=== PATIENT | male | born 1955 | race Caucasian/White ===

== ENCOUNTER 2017-05-02 22:04 | Inpatient (IN) | payer BC ==
[2017-05-02] MEDS: SOD CHLORIDE 0.9% 500 ML IV (23:00)
[2017-05-02 23:02] LABS: ADD MAN DIFF? NO
[2017-05-02 23:06] LABS: BASOPHILS % 0.5 % (0.0-2.0); EOSINOPHILS # 0.2 10^3/ul (0.0-0.5); EOSINOPHILS % 2.3 % (0.0-7.0); HEMATOCRIT 38.8 % (42.0-52.0); HEMOGLOBIN 11.8 g/dl (14.0-18.0); LYMPHOCYTES # 1.4 10^3/ul (0.8-2.9); LYMPHOCYTES % 21.8 % (15.0-51.0); MEAN CORPUSCULAR HEMOGLOBIN 26.4 pg (29.0-33.0); MEAN CORPUSCULAR HGB CONC 30.4 g/dl (32.0-37.0); MEAN CORPUSCULAR VOLUME 86.8 fl (82.0-101.0); MEAN PLATELET VOLUME 9.3 fl (7.4-10.4); MONOCYTE # 0.6 10^3/ul (0.3-0.9); MONOCYTES % 9.5 % (0.0-11.0); NEUTROPHIL # 4.2 10^3/ul (1.6-7.5); NEUTROPHILS % 65.6 % (39.0-77.0); PLATELET COUNT 241 10^3/UL (140-415); RED BLOOD COUNT 4.47 10^6/ul (4.70-6.10); RED CELL DISTRIBUTION WIDTH 14.1 % (11.5-14.5)
[2017-05-02 23:06] LABS: WHITE BLOOD COUNT 6.4 10^3/ul (4.8-10.8)
[2017-05-02 23:34] LABS: INR 1.05; PROTIME 13.8 Sec (11.9-14.9); PT RATIO 1.1
[2017-05-02 23:35] LABS: PARTIAL THROMBOPLASTIN TIME 35.7 Sec (25.0-35.0)
[2017-05-02 23:42] LABS: ALANINE AMINOTRANSFERASE 34 IU/L (13-69); ALBUMIN 4.3 g/dl (3.3-4.9); ALKALINE PHOSPHATASE 76 IU/L (42-121); ANION GAP 17 (8-16); ASPARTATE AMINO TRANSFERASE 33 IU/L (15-46); BILIRUBIN,INDIRECT 0.2 mg/dl (0-1.1); BILIRUBIN,TOTAL 0.2 mg/dl (0.2-1.3); BLOOD UREA NITROGEN 27 mg/dl (7-20); CALCIUM 9.1 mg/dl (8.4-10.2); CARBON DIOXIDE 35 mmol/L (21-31); CHLORIDE 96 mmol/L (97-110); CREATININE 1.04 mg/dl (0.61-1.24); GLUCOSE 83 mg/dl (70-220); POTASSIUM 3.6 mmol/L (3.5-5.1); SODIUM 144 mmol/L (135-144); TOTAL PROTEIN 8.6 g/dl (6.1-8.1)
[2017-05-02 23:54] LABS: B-TYPE NATRIURETIC PEPTIDE 2390 PG/ML (0-125); TROPONIN-I 0.052 ng/ml (0.00-0.12)
[2017-05-02] MEDS: IPRATROPIUM (NEB) 0.5 MG/2.5 ML AMP INH (23:55)
[2017-05-02] MEDS: ALBUTEROL 0.5% (NEB) 2.5 MG/0.5 ML AMP INH (23:55)
[2017-05-02] MEDS: METHYLPREDNISOLONE 125 MG INJ IV (23:58)
[2017-05-03 00:17] LABS: LACTIC ACID 1.9 mmol/L (0.5-2.0)
[2017-05-03] MEDS ORDERED: ACETAMINOPHEN 325 MG TAB PO (01:30)
[2017-05-03] MEDS: OSELTAMIVIR 75 MG CAP PO ×3 (01:39→21:28)
[2017-05-03] MEDS: ACETAMINOPHEN 325 MG TAB PO (01:39)
[2017-05-03] MEDS: LEVOFLOXACIN 750MG/D5W (PMX) 150 ML IVPB (01:39)
[2017-05-03] MEDS: SOD CHLORIDE 0.9% 500 ML IV (01:40)
[2017-05-03] MEDS: ONDANSETRON 4 MG INJ IV ×2 (01:40→14:00)
[2017-05-03 02:55] LABS: LACTIC ACID 1.3 mmol/L (0.5-2.0)
[2017-05-03] MEDS ORDERED: ONDANSETRON 4 MG INJ IV (03:30)
[2017-05-03] MEDS ORDERED: NITROGLYCERIN (SL) 0.4 MG TAB SL (03:30)
[2017-05-03] MEDS ORDERED: NACL 0.9% 3 ML SYG IV (03:30)
[2017-05-03] MEDS ORDERED: ALBUTEROL/IPRATROPIUM (NEB) 3 ML AMP HHN (03:30)
[2017-05-03] MEDS ORDERED: DEXTROSE 50% 50 ML SYRINGE IV ×2 (04:00)
[2017-05-03] MEDS ORDERED: GLUCOSE GEL 15 GRAM TUBE BUCCAL (04:00)
[2017-05-03] MEDS ORDERED: GLUCAGON 1 MG INJ IM (04:00)
[2017-05-03] MEDS ORDERED: GLUCOSE GEL 15 GRAM TUBE PO ×2 (04:00)
[2017-05-03 05:36] LABS: ADD MAN DIFF? NO
[2017-05-03 05:37] LABS: BASOPHILS % 0.3 % (0.0-2.0); EOSINOPHILS # 0.1 10^3/ul (0.0-0.5); EOSINOPHILS % 1.3 % (0.0-7.0); HEMATOCRIT 35.7 % (42.0-52.0); HEMOGLOBIN 10.9 g/dl (14.0-18.0); LYMPHOCYTES # 1.2 10^3/ul (0.8-2.9); LYMPHOCYTES % 20.5 % (15.0-51.0); MEAN CORPUSCULAR HEMOGLOBIN 26.8 pg (29.0-33.0); MEAN CORPUSCULAR HGB CONC 30.5 g/dl (32.0-37.0); MEAN CORPUSCULAR VOLUME 87.9 fl (82.0-101.0); MEAN PLATELET VOLUME 9.8 fl (7.4-10.4); MONOCYTE # 0.6 10^3/ul (0.3-0.9); MONOCYTES % 10.6 % (0.0-11.0); NEUTROPHILS % 67.1 % (39.0-77.0); PLATELET COUNT 207 10^3/UL (140-415); RED BLOOD COUNT 4.06 10^6/ul (4.70-6.10)
[2017-05-03 05:56] LABS: LACTIC ACID 1.4 mmol/L (0.5-2.0)
[2017-05-03 06:08] LABS: ALANINE AMINOTRANSFERASE 33 IU/L (13-69); ALBUMIN 3.6 g/dl (3.3-4.9); ALKALINE PHOSPHATASE 54 IU/L (42-121); ANION GAP 13 (8-16); ASPARTATE AMINO TRANSFERASE 38 IU/L (15-46); BILIRUBIN,INDIRECT 0.3 mg/dl (0-1.1); BILIRUBIN,TOTAL 0.3 mg/dl (0.2-1.3); BLOOD UREA NITROGEN 26 mg/dl (7-20); CALCIUM 8.5 mg/dl (8.4-10.2); CARBON DIOXIDE 35 mmol/L (21-31); CHLORIDE 99 mmol/L (97-110); CREATININE 0.93 mg/dl (0.61-1.24); GLUCOSE 66 mg/dl (70-220); MAGNESIUM 1.6 mg/dl (1.7-2.5); POTASSIUM 3.9 mmol/L (3.5-5.1); SODIUM 143 mmol/L (135-144); TOTAL PROTEIN 7.2 g/dl (6.1-8.1)
[2017-05-03] MEDS: INSULIN ASPART [NOVOLOG] 3 ML PEN SC ×6 (07:35→21:36)
[2017-05-03] MEDS ORDERED: METHYLPREDNISOLONE 40 MG INJ IV (09:00)
[2017-05-03] MEDS: ALBUTEROL HFA 8 GM INHALER INH ×3 (11:01→19:59)
[2017-05-03] MEDS: THIAMINE 100 MG TAB PO (11:02)
[2017-05-03] MEDS: LOSARTAN 50 MG TAB PO (11:09)
[2017-05-03] MEDS: SALMETEROL/FLUTICASONE 250/50 INHA INH ×2 (11:12→21:28)
[2017-05-03] MEDS: FERROUS SULFATE (EC) 325 MG TAB PO ×2 (11:13→21:28)
[2017-05-03] MEDS: GABAPENTIN 300 MG CAP PO ×3 (11:13→21:28)
[2017-05-03] MEDS: DOCUSATE SODIUM 100 MG CAP PO ×2 (11:13→22:30)
[2017-05-03] MEDS: ASPIRIN 81 MG TAB PO (11:13)
[2017-05-03] MEDS: HEPARIN 5,000 UNIT/0.5 ML VIAL SC ×2 (11:27→21:32)
[2017-05-03] MEDS: predniSONE 20 MG TAB PO (13:07)
[2017-05-03] MEDS: NICOTINE (14 MG/24 HR) PATCH TRANSDERM (13:34)
[2017-05-03] MEDS: FUROSEMIDE 20 MG TAB PO ×2 (13:40→19:58)
[2017-05-03] MEDS: morphine 2 MG INJ IV ×2 (14:00→15:00)
[2017-05-03] MEDS ORDERED: INSULIN GLARGINE [LANtus] 3 ML PEN SC (21:00)
[2017-05-03] MEDS: ALBUTEROL/IPRATROPIUM (NEB) 3 ML AMP HHN (21:23)
[2017-05-03] MEDS: INSULIN GLARGINE [LANtus] 3 ML PEN SC (21:33)
[2017-05-03] MEDS: TAMSULOSIN (SR) 0.4 MG CAP PO (22:08)
[2017-05-03] MEDS: POLYETHYLENE GLYCOL 17 GM PACKET PO (23:00)
[2017-05-04] MEDS: ALBUTEROL/IPRATROPIUM (NEB) 3 ML AMP HHN ×6 (01:00→21:00)
[2017-05-04] MEDS ORDERED: LEVOFLOXACIN 500MG/D5W (PMX) 100 ML IVPB (02:00)
[2017-05-04] MEDS ORDERED: METHYLPREDNISOLONE 125 MG INJ (02:14)
[2017-05-04] MEDS: ACCU-CHEK XX (02:24)
[2017-05-04 05:04] LABS: ADD MAN DIFF? NO
[2017-05-04 05:12] LABS: WHITE BLOOD COUNT 4.6 10^3/ul (4.8-10.8)
[2017-05-04 05:12] LABS: BASOPHILS % 0.2 % (0.0-2.0); HEMATOCRIT 31.8 % (42.0-52.0); HEMOGLOBIN 9.8 g/dl (14.0-18.0); LYMPHOCYTES # 1.1 10^3/ul (0.8-2.9); LYMPHOCYTES % 24.6 % (15.0-51.0); MEAN CORPUSCULAR HEMOGLOBIN 26.8 pg (29.0-33.0); MEAN CORPUSCULAR HGB CONC 30.8 g/dl (32.0-37.0); MEAN CORPUSCULAR VOLUME 87.1 fl (82.0-101.0); MONOCYTE # 0.4 10^3/ul (0.3-0.9); MONOCYTES % 9.5 % (0.0-11.0); NEUTROPHILS % 65.5 % (39.0-77.0); PLATELET COUNT 194 10^3/UL (140-415); RED BLOOD COUNT 3.65 10^6/ul (4.70-6.10)
[2017-05-04 05:35] LABS: ANION GAP 13 (8-16); BLOOD UREA NITROGEN 41 mg/dl (7-20); CALCIUM 8.5 mg/dl (8.4-10.2); CARBON DIOXIDE 35 mmol/L (21-31); CHLORIDE 94 mmol/L (97-110); GLUCOSE 323 mg/dl (70-220); MAGNESIUM 1.9 mg/dl (1.7-2.5); PHOSPHORUS 4.5 mg/dl (2.5-4.9); SODIUM 138 mmol/L (135-144)
[2017-05-04] MEDS: FUROSEMIDE 20 MG TAB PO ×2 (06:00→18:09)
[2017-05-04] MEDS: ALBUTEROL HFA 8 GM INHALER INH ×5 (06:49→23:55)
[2017-05-04] MEDS: INSULIN ASPART [NOVOLOG] 3 ML PEN SC ×7 (08:13→20:20)
[2017-05-04] MEDS: GABAPENTIN 300 MG CAP PO ×3 (09:57→20:19)
[2017-05-04] MEDS: DOCUSATE SODIUM 100 MG CAP PO ×2 (09:57→20:19)
[2017-05-04] MEDS: HEPARIN 5,000 UNIT/0.5 ML VIAL SC ×2 (09:58→20:23)
[2017-05-04] MEDS: POLYETHYLENE GLYCOL 17 GM PACKET PO ×2 (09:59→23:55)
[2017-05-04] MEDS: SALMETEROL/FLUTICASONE 250/50 INHA INH ×2 (10:00→20:19)
[2017-05-04] MEDS: OSELTAMIVIR 75 MG CAP PO ×2 (11:08→20:19)
[2017-05-04] MEDS: THIAMINE 100 MG TAB PO (11:09)
[2017-05-04] MEDS: NICOTINE (14 MG/24 HR) PATCH TRANSDERM (11:09)
[2017-05-04] MEDS: LOSARTAN 50 MG TAB PO (11:11)
[2017-05-04] MEDS: FERROUS SULFATE (EC) 325 MG TAB PO ×2 (11:13→20:19)
[2017-05-04] MEDS: ASPIRIN 81 MG TAB PO (11:14)
[2017-05-04] MEDS: predniSONE 20 MG TAB PO (15:21)
[2017-05-04] MEDS: ACETAMINOPHEN 325 MG TAB PO (18:05)
[2017-05-04] MEDS: TAMSULOSIN (SR) 0.4 MG CAP PO (20:19)
[2017-05-04] MEDS: INSULIN GLARGINE [LANtus] 3 ML PEN SC (20:22)
[2017-05-04] MEDS: HYDROCODONE/APAP (5/325) TAB PO (23:54)
[2017-05-05] MEDS: ALBUTEROL/IPRATROPIUM (NEB) 3 ML AMP HHN ×6 (01:00→21:05)
[2017-05-05] MEDS: ACCU-CHEK XX (02:00)
[2017-05-05] MEDS: ALBUTEROL HFA 8 GM INHALER INH ×3 (06:00→17:27)
[2017-05-05] MEDS: FUROSEMIDE 20 MG TAB PO ×2 (06:02→17:27)
[2017-05-05 07:06] LABS: ANION GAP 14 (8-16); BLOOD UREA NITROGEN 44 mg/dl (7-20); CALCIUM 8.7 mg/dl (8.4-10.2); CARBON DIOXIDE 33 mmol/L (21-31); CHLORIDE 98 mmol/L (97-110); CREATININE 1.14 mg/dl (0.61-1.24); GLUCOSE 291 mg/dl (70-220); MAGNESIUM 2.1 mg/dl (1.7-2.5); PHOSPHORUS 3.8 mg/dl (2.5-4.9); POTASSIUM 4.8 mmol/L (3.5-5.1); SODIUM 140 mmol/L (135-144)
[2017-05-05] MEDS: INSULIN ASPART [NOVOLOG] 3 ML PEN SC ×7 (08:11→20:47)
[2017-05-05] MEDS: POLYETHYLENE GLYCOL 17 GM PACKET PO ×2 (08:16→20:42)
[2017-05-05] MEDS: NICOTINE (14 MG/24 HR) PATCH TRANSDERM (08:16)
[2017-05-05] MEDS: SALMETEROL/FLUTICASONE 250/50 INHA INH ×2 (08:16→20:42)
[2017-05-05] MEDS: GABAPENTIN 300 MG CAP PO ×3 (08:16→20:43)
[2017-05-05] MEDS: DOCUSATE SODIUM 100 MG CAP PO ×2 (08:17→20:43)
[2017-05-05] MEDS: ASPIRIN 81 MG TAB PO (08:17)
[2017-05-05] MEDS: FERROUS SULFATE (EC) 325 MG TAB PO ×2 (08:17→20:43)
[2017-05-05] MEDS: THIAMINE 100 MG TAB PO (08:17)
[2017-05-05] MEDS: predniSONE 20 MG TAB PO (08:17)
[2017-05-05] MEDS: LOSARTAN 50 MG TAB PO (08:18)
[2017-05-05] MEDS: OSELTAMIVIR 75 MG CAP PO ×2 (08:23→20:43)
[2017-05-05] MEDS: HEPARIN 5,000 UNIT/0.5 ML VIAL SC ×2 (08:24→20:45)
[2017-05-05] MEDS: HYDROCODONE/APAP (5/325) TAB PO (10:54)
[2017-05-05] MEDS: AMLODIPINE 10 MG TAB PO (18:59)
[2017-05-05] MEDS: TAMSULOSIN (SR) 0.4 MG CAP PO (20:43)
[2017-05-05] MEDS: INSULIN GLARGINE [LANtus] 3 ML PEN SC (20:46)
[2017-05-05] MEDS: NA PHOSPHATE/BIPHOS 133 ML ENEMA PR (23:33)
[2017-05-06] MEDS: ALBUTEROL/IPRATROPIUM (NEB) 3 ML AMP HHN ×7 (01:00→20:20)
[2017-05-06] MEDS: ACCU-CHEK XX (02:00)
[2017-05-06] MEDS: FUROSEMIDE 20 MG TAB PO ×2 (04:42→17:27)
[2017-05-06] MEDS: ALBUTEROL HFA 8 GM INHALER INH ×4 (06:00→17:26)
[2017-05-06 06:34] LABS: ADD MAN DIFF? NO
[2017-05-06 06:45] LABS: BASOPHILS % 0.1 % (0.0-2.0); EOSINOPHILS % 0.1 % (0.0-7.0); HEMATOCRIT 33.4 % (42.0-52.0); HEMOGLOBIN 10.2 g/dl (14.0-18.0); LYMPHOCYTES # 2.1 10^3/ul (0.8-2.9); LYMPHOCYTES % 25.5 % (15.0-51.0); MEAN CORPUSCULAR HEMOGLOBIN 26.5 pg (29.0-33.0); MEAN CORPUSCULAR HGB CONC 30.5 g/dl (32.0-37.0); MEAN CORPUSCULAR VOLUME 86.8 fl (82.0-101.0); MEAN PLATELET VOLUME 10.3 fl (7.4-10.4); MONOCYTE # 0.6 10^3/ul (0.3-0.9); NEUTROPHIL # 5.4 10^3/ul (1.6-7.5); NEUTROPHILS % 66.8 % (39.0-77.0); PLATELET COUNT 223 10^3/UL (140-415); RED BLOOD COUNT 3.85 10^6/ul (4.70-6.10); RED CELL DISTRIBUTION WIDTH 13.8 % (11.5-14.5)
[2017-05-06 07:04] LABS: ANION GAP 13 (8-16); BLOOD UREA NITROGEN 41 mg/dl (7-20); CARBON DIOXIDE 38 mmol/L (21-31); CHLORIDE 97 mmol/L (97-110); GLUCOSE 203 mg/dl (70-220); PHOSPHORUS 3.1 mg/dl (2.5-4.9); SODIUM 144 mmol/L (135-144)
[2017-05-06] MEDS: INSULIN ASPART [NOVOLOG] 3 ML PEN SC ×7 (08:00→21:14)
[2017-05-06] MEDS: POLYETHYLENE GLYCOL 17 GM PACKET PO ×2 (08:10→21:16)
[2017-05-06] MEDS: THIAMINE 100 MG TAB PO (08:11)
[2017-05-06] MEDS: NICOTINE (14 MG/24 HR) PATCH TRANSDERM (08:11)
[2017-05-06] MEDS: FERROUS SULFATE (EC) 325 MG TAB PO ×2 (08:11→21:16)
[2017-05-06] MEDS: OSELTAMIVIR 75 MG CAP PO ×2 (08:11→21:16)
[2017-05-06] MEDS: ASPIRIN 81 MG TAB PO (08:11)
[2017-05-06] MEDS: GABAPENTIN 300 MG CAP PO ×3 (08:11→21:17)
[2017-05-06] MEDS: predniSONE 20 MG TAB PO (08:11)
[2017-05-06] MEDS: DOCUSATE SODIUM 100 MG CAP PO ×2 (08:11→21:17)
[2017-05-06] MEDS: SALMETEROL/FLUTICASONE 250/50 INHA INH ×2 (08:11→21:16)
[2017-05-06] MEDS: LOSARTAN 50 MG TAB PO (08:12)
[2017-05-06] MEDS: HEPARIN 5,000 UNIT/0.5 ML VIAL SC ×2 (08:13→21:15)
[2017-05-06] MEDS: AMLODIPINE 10 MG TAB PO (08:21)
[2017-05-06] MEDS: HYDROCODONE/APAP (5/325) TAB PO (10:48)
[2017-05-06] MEDS: INSULIN GLARGINE [LANtus] 3 ML PEN SC (21:14)
[2017-05-06] MEDS: TAMSULOSIN (SR) 0.4 MG CAP PO (21:17)
[2017-05-07] MEDS: ALBUTEROL HFA 8 GM INHALER INH ×4 (00:21→15:21)
[2017-05-07] MEDS: ACCU-CHEK XX (02:00)
[2017-05-07] MEDS: FUROSEMIDE 20 MG TAB PO ×2 (07:53→17:35)
[2017-05-07] MEDS: INSULIN ASPART [NOVOLOG] 3 ML PEN SC ×8 (07:57→21:28)
[2017-05-07] MEDS: POLYETHYLENE GLYCOL 17 GM PACKET PO ×2 (08:07→21:09)
[2017-05-07] MEDS: SALMETEROL/FLUTICASONE 250/50 INHA INH ×2 (08:07→21:12)
[2017-05-07] MEDS: GABAPENTIN 300 MG CAP PO ×3 (08:07→21:09)
[2017-05-07] MEDS: FERROUS SULFATE (EC) 325 MG TAB PO ×2 (08:07→21:09)
[2017-05-07] MEDS: OSELTAMIVIR 75 MG CAP PO ×2 (08:08→21:11)
[2017-05-07] MEDS: DOCUSATE SODIUM 100 MG CAP PO ×2 (08:08→21:09)
[2017-05-07] MEDS: LOSARTAN 50 MG TAB PO (08:08)
[2017-05-07] MEDS: ASPIRIN 81 MG TAB PO (08:08)
[2017-05-07] MEDS: THIAMINE 100 MG TAB PO (08:08)
[2017-05-07] MEDS: predniSONE 20 MG TAB PO (08:08)
[2017-05-07] MEDS: AMLODIPINE 10 MG TAB PO (08:09)
[2017-05-07] MEDS: HEPARIN 5,000 UNIT/0.5 ML VIAL SC ×2 (08:12→21:29)
[2017-05-07] MEDS: NICOTINE (14 MG/24 HR) PATCH TRANSDERM (08:12)
[2017-05-07] MEDS: ALBUTEROL/IPRATROPIUM (NEB) 3 ML AMP HHN ×4 (08:52→20:44)
[2017-05-07] MEDS: AZITHROMYCIN 250 MG TAB PO (15:21)
[2017-05-07] MEDS: ACETAMINOPHEN 325 MG TAB PO (15:39)
[2017-05-07] MEDS: GUAIFENESIN/DM (SR) TAB PO (21:09)
[2017-05-07] MEDS: FAMOTIDINE 20 MG TAB PO (21:09)
[2017-05-07] MEDS: LACTOBACILLUS RHAMNOSUS CAP PO (21:11)
[2017-05-07] MEDS: TAMSULOSIN (SR) 0.4 MG CAP PO (21:12)
[2017-05-07] MEDS: INSULIN GLARGINE [LANtus] 3 ML PEN SC (21:28)
[2017-05-08] MEDS: ALBUTEROL HFA 8 GM INHALER INH ×3 (00:27→17:15)
[2017-05-08] MEDS: ACCU-CHEK XX (02:00)
[2017-05-08] MEDS: FUROSEMIDE 20 MG TAB PO ×2 (06:16→17:22)
[2017-05-08 06:26] LABS: WHITE BLOOD COUNT 9.7 10^3/ul (4.8-10.8)
[2017-05-08 06:26] LABS: HEMATOCRIT 30.9 % (42.0-52.0); HEMOGLOBIN 9.6 g/dl (14.0-18.0); MEAN CORPUSCULAR HEMOGLOBIN 26.8 pg (29.0-33.0); MEAN CORPUSCULAR HGB CONC 31.1 g/dl (32.0-37.0); MEAN CORPUSCULAR VOLUME 86.3 fl (82.0-101.0); MEAN PLATELET VOLUME 10.1 fl (7.4-10.4); PLATELET COUNT 275 10^3/UL (140-415); POSITIVE DIFF @See below; RED BLOOD COUNT 3.58 10^6/ul (4.70-6.10)
[2017-05-08 07:04] LABS: ADD MAN DIFF? YES
[2017-05-08 07:07] LABS: ANION GAP 13 (8-16); BLOOD UREA NITROGEN 43 mg/dl (7-20); CALCIUM 8.7 mg/dl (8.4-10.2); CARBON DIOXIDE 32 mmol/L (21-31); CHLORIDE 100 mmol/L (97-110); CREATININE 0.99 mg/dl (0.61-1.24); GLUCOSE 335 mg/dl (70-220); POTASSIUM 3.9 mmol/L (3.5-5.1); SODIUM 141 mmol/L (135-144)
[2017-05-08 07:26] LABS: MAGNESIUM 2.2 mg/dl (1.7-2.5)
[2017-05-08] MEDS: SALMETEROL/FLUTICASONE 250/50 INHA INH ×2 (08:19→20:46)
[2017-05-08] MEDS: POLYETHYLENE GLYCOL 17 GM PACKET PO ×2 (08:20→20:46)
[2017-05-08] MEDS: ASPIRIN 81 MG TAB PO (08:20)
[2017-05-08] MEDS: GABAPENTIN 300 MG CAP PO ×3 (08:20→20:46)
[2017-05-08] MEDS: FERROUS SULFATE (EC) 325 MG TAB PO ×2 (08:20→20:46)
[2017-05-08] MEDS: DOCUSATE SODIUM 100 MG CAP PO ×2 (08:20→20:46)
[2017-05-08] MEDS: THIAMINE 100 MG TAB PO (08:21)
[2017-05-08] MEDS: LOSARTAN 50 MG TAB PO (08:21)
[2017-05-08] MEDS: LACTOBACILLUS RHAMNOSUS CAP PO ×2 (08:21→20:47)
[2017-05-08] MEDS: predniSONE 20 MG TAB PO (08:21)
[2017-05-08] MEDS: GUAIFENESIN/DM (SR) TAB PO ×2 (08:21→20:46)
[2017-05-08] MEDS: AMLODIPINE 10 MG TAB PO (08:21)
[2017-05-08] MEDS: AZITHROMYCIN 250 MG TAB PO (08:21)
[2017-05-08] MEDS: NICOTINE (14 MG/24 HR) PATCH TRANSDERM (08:22)
[2017-05-08] MEDS: INSULIN ASPART [NOVOLOG] 3 ML PEN SC ×8 (08:24→20:43)
[2017-05-08] MEDS: HEPARIN 5,000 UNIT/0.5 ML VIAL SC ×2 (08:24→20:46)
[2017-05-08 09:43] LABS: BASOPHILS % (M) 1 % (0-2); GIANT THROMBO% (M) 1 % (0-0); LYMPHOCYTES #M 2.6 10^3/ul (0.8-2.9); LYMPHOCYTES % (M) 27 % (15-51); MONOCYTE #M 0.7 10^3/ul (0.3-0.9); MONOCYTES % (M) 8 % (0-11); MYELOCYTES % (M) 1 % (0-0); PLATELET ESTIMATE NORMAL; POLYCHROMASIA 1+ (0-0); SEGMENTED NEUTROPHILS (M) % 63 % (39-77); SMUDGE%M 4 % (0-0)
[2017-05-08] MEDS: ALBUTEROL/IPRATROPIUM (NEB) 3 ML AMP HHN (09:56)
[2017-05-08] MEDS: HYDROCODONE/APAP (5/325) TAB PO (12:24)
[2017-05-08] MEDS ORDERED: ALBUTEROL/IPRATROPIUM (NEB) 3 ML AMP HHN (13:30)
[2017-05-08] MEDS: INSULIN GLARGINE [LANtus] 3 ML PEN SC (20:44)
[2017-05-08] MEDS: TAMSULOSIN (SR) 0.4 MG CAP PO (20:46)
[2017-05-08] MEDS: FAMOTIDINE 20 MG TAB PO (20:50)
[2017-05-09] MEDS: ALBUTEROL HFA 8 GM INHALER INH ×3 (00:11→15:20)
[2017-05-09] MEDS: ACCU-CHEK XX ×2 (02:10)
[2017-05-09] MEDS: FUROSEMIDE 20 MG TAB PO ×2 (05:41→17:14)
[2017-05-09 06:27] LABS: ADD MAN DIFF? NO
[2017-05-09 06:33] LABS: WHITE BLOOD COUNT 11.5 10^3/ul (4.8-10.8)
[2017-05-09 06:33] LABS: BASOPHILS % 0.3 % (0.0-2.0); EOSINOPHILS # 0.1 10^3/ul (0.0-0.5); EOSINOPHILS % 0.7 % (0.0-7.0); HEMATOCRIT 32.7 % (42.0-52.0); HEMOGLOBIN 9.8 g/dl (14.0-18.0); LYMPHOCYTES # 3.5 10^3/ul (0.8-2.9); LYMPHOCYTES % 30.4 % (15.0-51.0); MEAN CORPUSCULAR HEMOGLOBIN 25.9 pg (29.0-33.0); MEAN CORPUSCULAR VOLUME 86.5 fl (82.0-101.0); MEAN PLATELET VOLUME 10.1 fl (7.4-10.4); MONOCYTE # 0.8 10^3/ul (0.3-0.9); MONOCYTES % 6.5 % (0.0-11.0); PLATELET COUNT 344 10^3/UL (140-415); RED BLOOD COUNT 3.78 10^6/ul (4.70-6.10); RED CELL DISTRIBUTION WIDTH 14.1 % (11.5-14.5)
[2017-05-09 06:37] LABS: ANION GAP 12 (8-16); BLOOD UREA NITROGEN 34 mg/dl (7-20); CALCIUM 8.9 mg/dl (8.4-10.2); CARBON DIOXIDE 36 mmol/L (21-31); CHLORIDE 103 mmol/L (97-110); CREATININE 0.91 mg/dl (0.61-1.24); GLUCOSE 93 mg/dl (70-220); POTASSIUM 4.2 mmol/L (3.5-5.1); SODIUM 147 mmol/L (135-144)
[2017-05-09] MEDS: INSULIN ASPART [NOVOLOG] 3 ML PEN SC ×7 (08:00→20:30)
[2017-05-09] MEDS: SALMETEROL/FLUTICASONE 250/50 INHA INH ×2 (08:14→20:22)
[2017-05-09] MEDS: NICOTINE (14 MG/24 HR) PATCH TRANSDERM (08:15)
[2017-05-09] MEDS: ACETAMINOPHEN 325 MG TAB PO (08:15)
[2017-05-09] MEDS: AMLODIPINE 10 MG TAB PO (08:16)
[2017-05-09] MEDS: DOCUSATE SODIUM 100 MG CAP PO ×2 (08:16→20:21)
[2017-05-09] MEDS: LOSARTAN 50 MG TAB PO (08:16)
[2017-05-09] MEDS: THIAMINE 100 MG TAB PO (08:16)
[2017-05-09] MEDS: FERROUS SULFATE (EC) 325 MG TAB PO ×2 (08:17→20:22)
[2017-05-09] MEDS: LACTOBACILLUS RHAMNOSUS CAP PO ×2 (08:17→20:22)
[2017-05-09] MEDS: ASPIRIN 81 MG TAB PO (08:17)
[2017-05-09] MEDS: AZITHROMYCIN 250 MG TAB PO (08:17)
[2017-05-09] MEDS: POLYETHYLENE GLYCOL 17 GM PACKET PO ×2 (08:17→20:21)
[2017-05-09] MEDS: GABAPENTIN 300 MG CAP PO ×3 (08:17→20:22)
[2017-05-09] MEDS: GUAIFENESIN/DM (SR) TAB PO ×2 (08:17→20:22)
[2017-05-09] MEDS: HEPARIN 5,000 UNIT/0.5 ML VIAL SC ×2 (08:19→20:26)
[2017-05-09] MEDS: FAMOTIDINE 20 MG TAB PO (20:22)
[2017-05-09] MEDS: TAMSULOSIN (SR) 0.4 MG CAP PO (20:22)
[2017-05-09] MEDS: INSULIN GLARGINE [LANtus] 3 ML PEN SC (20:30)
== END 2017-05-09 21:38 | disposition home or self-care (01) | DRG 871 ==
LOC: E/R 22:04 → MS3 05-03 01:22 → PP2 05-04 18:15
DX: A41.9 Sepsis, unspecified organism (principal); J10.08 Influenza due to other identified influenza virus with other specified pneumonia; I11.0 Hypertensive heart disease with heart failure; J15.9 Unspecified bacterial pneumonia; J44.0 Chronic obstructive pulmonary disease with (acute) lower respiratory infection; I50.30 Unspecified diastolic (congestive) heart failure; E88.81 Metabolic syndrome and other insulin resistance; E11.9 Type 2 diabetes mellitus without complications; D64.9 Anemia, unspecified; N40.0 Benign prostatic hyperplasia without lower urinary tract symptoms; J44.1 Chronic obstructive pulmonary disease with (acute) exacerbation; M25.519 Pain in unspecified shoulder; E78.00 Pure hypercholesterolemia, unspecified; R65.20 Severe sepsis without septic shock; Z79.4 Long term (current) use of insulin; Z79.82 Long term (current) use of aspirin; Z87.891 Personal history of nicotine dependence
CPT/HCPCS: 36415; 71045; 71046; 80048; 80053; 82962; 83605; 83735; 83880; 84100; 84484; 85025; 85610; 85730; 87040; 87400; 93005; 94640; 94644; 96374; 96375; 97116; 97162; 97530; 99285-25

== ENCOUNTER 2017-07-10 23:09 | Inpatient (IN) | payer BC ==
[2017-07-11] MEDS ORDERED: morphine 2 MG INJ IV (00:30)
[2017-07-11] MEDS ORDERED: ONDANSETRON 4 MG INJ IV ×2 (00:30→04:00)
[2017-07-11 01:37] LABS: ADD MAN DIFF? NO
[2017-07-11 01:39] LABS: BASOPHILS % 0.4 % (0.0-2.0); EOSINOPHILS # 0.2 10^3/ul (0.0-0.5); EOSINOPHILS % 2.4 % (0.0-7.0); HEMATOCRIT 30.9 % (42.0-52.0); HEMOGLOBIN 9.3 g/dl (14.0-18.0); LYMPHOCYTES # 1.9 10^3/ul (0.8-2.9); LYMPHOCYTES % 25.4 % (15.0-51.0); MEAN CORPUSCULAR HEMOGLOBIN 26.5 pg (29.0-33.0); MEAN CORPUSCULAR HGB CONC 30.1 g/dl (32.0-37.0); MEAN PLATELET VOLUME 9.8 fl (7.4-10.4); MONOCYTE # 0.6 10^3/ul (0.3-0.9); MONOCYTES % 7.5 % (0.0-11.0); NEUTROPHIL # 4.9 10^3/ul (1.6-7.5); NEUTROPHILS % 63.9 % (39.0-77.0); PLATELET COUNT 180 10^3/UL (140-415); RED BLOOD COUNT 3.51 10^6/ul (4.70-6.10); RED CELL DISTRIBUTION WIDTH 15.8 % (11.5-14.5)
[2017-07-11 01:39] LABS: WHITE BLOOD COUNT 7.6 10^3/ul (4.8-10.8)
[2017-07-11 02:00] LABS: MAGNESIUM 1.7 mg/dl (1.7-2.5)
[2017-07-11 02:00] LABS: PHOSPHORUS 3.8 mg/dl (2.5-4.9)
[2017-07-11 02:03] LABS: ALANINE AMINOTRANSFERASE 102 IU/L (13-69); ALBUMIN 3.3 g/dl (3.3-4.9); ALBUMIN/GLOBULIN RATIO 1.03; ALKALINE PHOSPHATASE 141 IU/L (42-121); ANION GAP 13 (8-16); ASPARTATE AMINO TRANSFERASE 75 IU/L (15-46); BILIRUBIN,INDIRECT 0.1 mg/dl (0-1.1); BILIRUBIN,TOTAL 0.1 mg/dl (0.2-1.3); BLOOD UREA NITROGEN 23 mg/dl (7-20); CALCIUM 8.7 mg/dl (8.4-10.2); CARBON DIOXIDE 32 mmol/L (21-31); CHLORIDE 108 mmol/L (97-110); CREATININE 0.91 mg/dl (0.61-1.24); GLUCOSE 131 mg/dl (70-220); POTASSIUM 4.1 mmol/L (3.5-5.1); SODIUM 149 mmol/L (135-144); TOTAL PROTEIN 6.5 g/dl (6.1-8.1)
[2017-07-11] MEDS: ZOLPIDEM 5 MG TAB PO (02:59)
[2017-07-11] MEDS ORDERED: NITROGLYCERIN (SL) 0.4 MG TAB SL (04:00)
[2017-07-11] MEDS ORDERED: NACL 0.9% 3 ML SYG IV (04:00)
[2017-07-11] MEDS ORDERED: DEXTROSE 50% 50 ML SYRINGE IV (04:30)
[2017-07-11] MEDS ORDERED: GLUCOSE GEL 15 GRAM TUBE PO ×2 (04:30)
[2017-07-11] MEDS ORDERED: GLUCAGON 1 MG INJ IM (04:30)
[2017-07-11] MEDS: FUROSEMIDE 20 MG INJ IV (06:53)
[2017-07-11] MEDS: NIFEdipine (XL) 90 MG TAB PO (07:06)
[2017-07-11] MEDS: LOSARTAN 50 MG TAB PO (07:06)
[2017-07-11] MEDS ORDERED: GABAPENTIN 100 MG CAP PO (09:00)
[2017-07-11] MEDS ORDERED: LOSARTAN 50 MG TAB PO (09:00)
[2017-07-11] MEDS ORDERED: NIFEdipine (XL) 90 MG TAB PO (09:00)
[2017-07-11 09:18] LABS: ADD MAN DIFF? NO
[2017-07-11 09:22] LABS: WHITE BLOOD COUNT 9.2 10^3/ul (4.8-10.8)
[2017-07-11 09:22] LABS: BASOPHILS % 0.4 % (0.0-2.0); EOSINOPHILS # 0.2 10^3/ul (0.0-0.5); EOSINOPHILS % 1.6 % (0.0-7.0); HEMATOCRIT 32.8 % (42.0-52.0); HEMOGLOBIN 9.8 g/dl (14.0-18.0); LYMPHOCYTES # 1.6 10^3/ul (0.8-2.9); LYMPHOCYTES % 17.2 % (15.0-51.0); MEAN CORPUSCULAR HEMOGLOBIN 26.3 pg (29.0-33.0); MEAN CORPUSCULAR HGB CONC 29.9 g/dl (32.0-37.0); MEAN CORPUSCULAR VOLUME 88.2 fl (82.0-101.0); MEAN PLATELET VOLUME 9.8 fl (7.4-10.4); MONOCYTE # 0.7 10^3/ul (0.3-0.9); MONOCYTES % 7.8 % (0.0-11.0); NEUTROPHIL # 6.7 10^3/ul (1.6-7.5); NEUTROPHILS % 72.5 % (39.0-77.0); PLATELET COUNT 203 10^3/UL (140-415); RED BLOOD COUNT 3.72 10^6/ul (4.70-6.10); RED CELL DISTRIBUTION WIDTH 15.7 % (11.5-14.5)
[2017-07-11] MEDS: GABAPENTIN 300 MG CAP PO ×3 (09:31→21:33)
[2017-07-11] MEDS: SALMETEROL/FLUTICASONE 250/50 INHA INH ×2 (09:31→21:35)
[2017-07-11] MEDS: INSULIN ASPART [NOVOLOG] 3 ML PEN SC ×5 (09:32→21:00)
[2017-07-11] MEDS: HEPARIN 5,000 UNIT/0.5 ML VIAL SC ×2 (09:33→21:34)
[2017-07-11] MEDS: FERROUS SULFATE (EC) 325 MG TAB PO ×2 (09:35→21:36)
[2017-07-11] MEDS: THIAMINE 100 MG TAB PO (09:35)
[2017-07-11] MEDS: ASPIRIN 81 MG TAB PO (09:35)
[2017-07-11] MEDS: NICOTINE (14 MG/24 HR) PATCH TRANSDERM (09:36)
[2017-07-11] MEDS: hydrALAzine 20 MG INJ IV (09:38)
[2017-07-11] MEDS: FUROSEMIDE 40 MG INJ IV ×2 (09:38→18:14)
[2017-07-11 09:39] LABS: ALANINE AMINOTRANSFERASE 211 IU/L (13-69); ALBUMIN 3.7 g/dl (3.3-4.9); ALBUMIN/GLOBULIN RATIO 1.05; ALKALINE PHOSPHATASE 222 IU/L (42-121); ANION GAP 14 (8-16); ASPARTATE AMINO TRANSFERASE 189 IU/L (15-46); BILIRUBIN,INDIRECT 0.4 mg/dl (0-1.1); BILIRUBIN,TOTAL 0.4 mg/dl (0.2-1.3); BLOOD UREA NITROGEN 24 mg/dl (7-20); CARBON DIOXIDE 33 mmol/L (21-31); CHLORIDE 105 mmol/L (97-110); CREATININE 0.88 mg/dl (0.61-1.24); GLUCOSE 172 mg/dl (70-220); MAGNESIUM 1.7 mg/dl (1.7-2.5); POTASSIUM 4.2 mmol/L (3.5-5.1); SODIUM 148 mmol/L (135-144); TOTAL PROTEIN 7.2 g/dl (6.1-8.1)
[2017-07-11] MEDS: DOCUSATE SODIUM 100 MG CAP PO ×2 (13:41→21:33)
[2017-07-11] MEDS ORDERED: TAMSULOSIN (SR) 0.4 MG CAP PO (19:44)
[2017-07-11] MEDS: TAMSULOSIN (SR) 0.4 MG CAP PO (21:33)
[2017-07-11] MEDS: INSULIN GLARGINE [LANtus] 3 ML PEN SC (21:35)
[2017-07-12] MEDS: ACCU-CHEK XX (01:01)
[2017-07-12 04:48] LABS: ADD MAN DIFF? NO; HAAIG REFLEX REFLEX FILED
[2017-07-12 04:54] LABS: WHITE BLOOD COUNT 8.3 10^3/ul (4.8-10.8)
[2017-07-12 04:54] LABS: BASOPHILS % 0.4 % (0.0-2.0); EOSINOPHILS # 0.2 10^3/ul (0.0-0.5); EOSINOPHILS % 2.3 % (0.0-7.0); HEMATOCRIT 29.8 % (42.0-52.0); LYMPHOCYTES # 1.6 10^3/ul (0.8-2.9); LYMPHOCYTES % 18.8 % (15.0-51.0); MEAN CORPUSCULAR HEMOGLOBIN 26.2 pg (29.0-33.0); MEAN CORPUSCULAR HGB CONC 30.2 g/dl (32.0-37.0); MEAN CORPUSCULAR VOLUME 86.9 fl (82.0-101.0); MEAN PLATELET VOLUME 10.5 fl (7.4-10.4); MONOCYTE # 0.7 10^3/ul (0.3-0.9); MONOCYTES % 8.7 % (0.0-11.0); NEUTROPHIL # 5.8 10^3/ul (1.6-7.5); NEUTROPHILS % 69.4 % (39.0-77.0); PLATELET COUNT 181 10^3/UL (140-415); RED BLOOD COUNT 3.43 10^6/ul (4.70-6.10); RED CELL DISTRIBUTION WIDTH 15.9 % (11.5-14.5)
[2017-07-12 05:15] LABS: ALANINE AMINOTRANSFERASE 140 IU/L (13-69); ALBUMIN 3.3 g/dl (3.3-4.9); ALBUMIN/GLOBULIN RATIO 1.06; ALKALINE PHOSPHATASE 172 IU/L (42-121); ANION GAP 15 (8-16); ASPARTATE AMINO TRANSFERASE 65 IU/L (15-46); BILIRUBIN,INDIRECT 0.4 mg/dl (0-1.1); BILIRUBIN,TOTAL 0.4 mg/dl (0.2-1.3); BLOOD UREA NITROGEN 31 mg/dl (7-20); CALCIUM 8.7 mg/dl (8.4-10.2); CARBON DIOXIDE 32 mmol/L (21-31); CHLORIDE 102 mmol/L (97-110); GLUCOSE 156 mg/dl (70-220); POTASSIUM 4.2 mmol/L (3.5-5.1); SODIUM 145 mmol/L (135-144); TOTAL PROTEIN 6.4 g/dl (6.1-8.1)
[2017-07-12 05:16] LABS: PHOSPHORUS 4.1 mg/dl (2.5-4.9)
[2017-07-12 05:16] LABS: MAGNESIUM 1.8 mg/dl (1.7-2.5)
[2017-07-12 05:24] LABS: TROPONIN-I 0.029 ng/ml (0.00-0.12)
[2017-07-12] MEDS: FUROSEMIDE 40 MG INJ IV ×2 (05:25→18:22)
[2017-07-12 05:43] LABS: HEPATITIS B SURFACE ANTIGEN NEGATIVE (NEGATIVE)
[2017-07-12 06:00] LABS: HEPATITIS B CORE ANTIBODY NEGATIVE (NEGATIVE); HEPATITIS C VIRAL ANTIBODY NEGATIVE (NEGATIVE)
[2017-07-12 06:45] LABS: INR 1.08; PROTIME 14.1 Sec (11.9-14.9); PT RATIO 1.1
[2017-07-12 06:46] LABS: PARTIAL THROMBOPLASTIN TIME 36.7 Sec (25.0-35.0)
[2017-07-12] MEDS: INSULIN ASPART [NOVOLOG] 3 ML PEN SC ×7 (08:15→21:00)
[2017-07-12] MEDS: GABAPENTIN 300 MG CAP PO ×3 (08:29→21:41)
[2017-07-12] MEDS: ASPIRIN 81 MG TAB PO (08:29)
[2017-07-12] MEDS: DOCUSATE SODIUM 100 MG CAP PO ×2 (08:29→21:41)
[2017-07-12] MEDS: SALMETEROL/FLUTICASONE 250/50 INHA INH ×2 (08:29→21:39)
[2017-07-12] MEDS: THIAMINE 100 MG TAB PO (08:29)
[2017-07-12] MEDS: FERROUS SULFATE (EC) 325 MG TAB PO ×2 (08:30→21:41)
[2017-07-12] MEDS: NICOTINE (14 MG/24 HR) PATCH TRANSDERM (08:30)
[2017-07-12] MEDS: HEPARIN 5,000 UNIT/0.5 ML VIAL SC ×2 (08:32→21:47)
[2017-07-12] MEDS: LOSARTAN 50 MG TAB PO (08:34)
[2017-07-12] MEDS: BISACODYL 10 MG SUPP PR (08:35)
[2017-07-12 15:23] LABS: IRON 64 ug/dl (35-150)
[2017-07-12 15:32] LABS: % IRON SATURATION 19 % SAT (22-52); TOTAL IRON BINDING CAPACITY 345 ug/dl (241-421)
[2017-07-12] MEDS: LIDOCAINE 1% (MDV) 10 ML INJ (18:22)
[2017-07-12] MEDS: TAMSULOSIN (SR) 0.4 MG CAP PO (21:41)
[2017-07-12] MEDS: INSULIN GLARGINE [LANtus] 3 ML PEN SC (21:48)
[2017-07-12] MEDS: morphine 2 MG INJ IV ×2 (22:09→23:17)
[2017-07-13] MEDS: ACCU-CHEK XX (01:46)
[2017-07-13] MEDS: FUROSEMIDE 40 MG INJ IV ×2 (05:17→17:37)
[2017-07-13 05:50] LABS: ADD MAN DIFF? NO
[2017-07-13 05:58] LABS: BASOPHILS % 0.4 % (0.0-2.0); EOSINOPHILS # 0.1 10^3/ul (0.0-0.5); EOSINOPHILS % 1.8 % (0.0-7.0); HEMATOCRIT 29.6 % (42.0-52.0); LYMPHOCYTES # 1.4 10^3/ul (0.8-2.9); LYMPHOCYTES % 18.8 % (15.0-51.0); MEAN CORPUSCULAR HEMOGLOBIN 26.6 pg (29.0-33.0); MEAN CORPUSCULAR HGB CONC 30.4 g/dl (32.0-37.0); MEAN CORPUSCULAR VOLUME 87.6 fl (82.0-101.0); MEAN PLATELET VOLUME 10.2 fl (7.4-10.4); MONOCYTE # 0.6 10^3/ul (0.3-0.9); MONOCYTES % 7.4 % (0.0-11.0); NEUTROPHIL # 5.3 10^3/ul (1.6-7.5); NEUTROPHILS % 71.2 % (39.0-77.0); PLATELET COUNT 190 10^3/UL (140-415); RED BLOOD COUNT 3.38 10^6/ul (4.70-6.10); RED CELL DISTRIBUTION WIDTH 15.8 % (11.5-14.5)
[2017-07-13 05:58] LABS: WHITE BLOOD COUNT 7.4 10^3/ul (4.8-10.8)
[2017-07-13 06:59] LABS: ALANINE AMINOTRANSFERASE 105 IU/L (13-69); ALBUMIN 3.4 g/dl (3.3-4.9); ALBUMIN/GLOBULIN RATIO 1.03; ALKALINE PHOSPHATASE 171 IU/L (42-121); ANION GAP 14 (8-16); ASPARTATE AMINO TRANSFERASE 41 IU/L (15-46); BILIRUBIN,INDIRECT 0.3 mg/dl (0-1.1); BILIRUBIN,TOTAL 0.3 mg/dl (0.2-1.3); BLOOD UREA NITROGEN 33 mg/dl (7-20); CALCIUM 8.6 mg/dl (8.4-10.2); CARBON DIOXIDE 32 mmol/L (21-31); CHLORIDE 103 mmol/L (97-110); CREATININE 0.94 mg/dl (0.61-1.24); GLUCOSE 103 mg/dl (70-220); POTASSIUM 4.1 mmol/L (3.5-5.1); SODIUM 145 mmol/L (135-144); TOTAL PROTEIN 6.7 g/dl (6.1-8.1)
[2017-07-13] MEDS: INSULIN ASPART [NOVOLOG] 3 ML PEN SC ×7 (07:52→21:00)
[2017-07-13] MEDS: ASPIRIN 81 MG TAB PO (08:00)
[2017-07-13] MEDS: LOSARTAN 50 MG TAB PO (08:00)
[2017-07-13] MEDS: THIAMINE 100 MG TAB PO (08:00)
[2017-07-13] MEDS: FERROUS SULFATE (EC) 325 MG TAB PO ×2 (08:00→22:24)
[2017-07-13] MEDS: GABAPENTIN 300 MG CAP PO ×3 (08:00→22:23)
[2017-07-13] MEDS: DOCUSATE SODIUM 100 MG CAP PO ×2 (08:00→22:24)
[2017-07-13] MEDS: NICOTINE (14 MG/24 HR) PATCH TRANSDERM (08:02)
[2017-07-13] MEDS: SALMETEROL/FLUTICASONE 250/50 INHA INH ×2 (08:03→22:23)
[2017-07-13] MEDS: HEPARIN 5,000 UNIT/0.5 ML VIAL SC ×2 (08:03→22:39)
[2017-07-13] MEDS: morphine LIQ (10 MG/5 ML) CUP PO (20:18)
[2017-07-13] MEDS: INSULIN GLARGINE [LANtus] 3 ML PEN SC (21:00)
[2017-07-13] MEDS: TAMSULOSIN (SR) 0.4 MG CAP PO (22:24)
[2017-07-13] MEDS: GLUCOSE GEL 15 GRAM TUBE BUCCAL (22:33)
[2017-07-13] MEDS: DEXTROSE 50% 50 ML SYRINGE IV (23:20)
[2017-07-14] MEDS: morphine LIQ (10 MG/5 ML) CUP PO ×2 (00:11→12:43)
[2017-07-14] MEDS: ACCU-CHEK XX (02:00)
[2017-07-14] MEDS: ACETAMINOPHEN 325 MG TAB PO (02:14)
[2017-07-14] MEDS: FUROSEMIDE 40 MG INJ IV ×2 (05:30→18:04)
[2017-07-14] MEDS: NIFEdipine (XL) 90 MG TAB PO ×2 (06:55→08:31)
[2017-07-14 07:07] LABS: ADD MAN DIFF? NO
[2017-07-14 07:09] LABS: BASOPHILS % 0.3 % (0.0-2.0); EOSINOPHILS # 0.1 10^3/ul (0.0-0.5); EOSINOPHILS % 1.5 % (0.0-7.0); HEMATOCRIT 32.2 % (42.0-52.0); HEMOGLOBIN 9.5 g/dl (14.0-18.0); LYMPHOCYTES # 1.2 10^3/ul (0.8-2.9); LYMPHOCYTES % 12.3 % (15.0-51.0); MEAN CORPUSCULAR HEMOGLOBIN 26.5 pg (29.0-33.0); MEAN CORPUSCULAR HGB CONC 29.5 g/dl (32.0-37.0); MEAN CORPUSCULAR VOLUME 89.9 fl (82.0-101.0); MONOCYTE # 0.7 10^3/ul (0.3-0.9); MONOCYTES % 7.6 % (0.0-11.0); NEUTROPHIL # 7.4 10^3/ul (1.6-7.5); NEUTROPHILS % 77.9 % (39.0-77.0); PLATELET COUNT 232 10^3/UL (140-415); RED BLOOD COUNT 3.58 10^6/ul (4.70-6.10); RED CELL DISTRIBUTION WIDTH 15.8 % (11.5-14.5)
[2017-07-14 07:09] LABS: WHITE BLOOD COUNT 9.5 10^3/ul (4.8-10.8)
[2017-07-14 07:41] LABS: ALANINE AMINOTRANSFERASE 81 IU/L (13-69); ALBUMIN 3.7 g/dl (3.3-4.9); ALBUMIN/GLOBULIN RATIO 1.02; ALKALINE PHOSPHATASE 161 IU/L (42-121); ANION GAP 14 (8-16); ASPARTATE AMINO TRANSFERASE 28 IU/L (15-46); BILIRUBIN,INDIRECT 0.3 mg/dl (0-1.1); BILIRUBIN,TOTAL 0.3 mg/dl (0.2-1.3); BLOOD UREA NITROGEN 36 mg/dl (7-20); CALCIUM 8.6 mg/dl (8.4-10.2); CARBON DIOXIDE 35 mmol/L (21-31); CHLORIDE 101 mmol/L (97-110); CREATININE 1.08 mg/dl (0.61-1.24); GLUCOSE 183 mg/dl (70-220); MAGNESIUM 1.9 mg/dl (1.7-2.5); POTASSIUM 4.8 mmol/L (3.5-5.1); SODIUM 145 mmol/L (135-144); TOTAL PROTEIN 7.3 g/dl (6.1-8.1)
[2017-07-14 07:42] LABS: B-TYPE NATRIURETIC PEPTIDE 2600 PG/ML (0-125)
[2017-07-14] MEDS: GABAPENTIN 300 MG CAP PO ×3 (08:16→20:06)
[2017-07-14] MEDS: FERROUS SULFATE (EC) 325 MG TAB PO ×2 (08:17→20:06)
[2017-07-14] MEDS: INSULIN ASPART [NOVOLOG] 3 ML PEN SC ×7 (08:18→21:00)
[2017-07-14] MEDS: THIAMINE 100 MG TAB PO (08:19)
[2017-07-14] MEDS: ASPIRIN 81 MG TAB PO (08:19)
[2017-07-14] MEDS: HEPARIN 5,000 UNIT/0.5 ML VIAL SC ×2 (08:19→20:08)
[2017-07-14] MEDS: DOCUSATE SODIUM 100 MG CAP PO ×2 (08:19→20:06)
[2017-07-14] MEDS: LOSARTAN 50 MG TAB PO (08:20)
[2017-07-14] MEDS: SALMETEROL/FLUTICASONE 250/50 INHA INH ×2 (08:21→20:06)
[2017-07-14] MEDS: NICOTINE (14 MG/24 HR) PATCH TRANSDERM (08:21)
[2017-07-14] MEDS: TAMSULOSIN (SR) 0.4 MG CAP PO (20:06)
[2017-07-14] MEDS: INSULIN GLARGINE [LANtus] 3 ML PEN SC (20:09)
[2017-07-15] MEDS: ACCU-CHEK XX (02:00)
[2017-07-15] MEDS: FUROSEMIDE 40 MG INJ IV ×3 (05:18→21:38)
[2017-07-15 06:06] LABS: ADD MAN DIFF? NO
[2017-07-15 06:10] LABS: BASOPHILS % 0.2 % (0.0-2.0); EOSINOPHILS # 0.1 10^3/ul (0.0-0.5); EOSINOPHILS % 1.5 % (0.0-7.0); HEMATOCRIT 28.9 % (42.0-52.0); HEMOGLOBIN 8.5 g/dl (14.0-18.0); LYMPHOCYTES # 1.4 10^3/ul (0.8-2.9); LYMPHOCYTES % 15.9 % (15.0-51.0); MEAN CORPUSCULAR HEMOGLOBIN 26.4 pg (29.0-33.0); MEAN CORPUSCULAR HGB CONC 29.4 g/dl (32.0-37.0); MEAN CORPUSCULAR VOLUME 89.8 fl (82.0-101.0); MEAN PLATELET VOLUME 10.3 fl (7.4-10.4); MONOCYTE # 0.7 10^3/ul (0.3-0.9); MONOCYTES % 7.8 % (0.0-11.0); NEUTROPHIL # 6.4 10^3/ul (1.6-7.5); PLATELET COUNT 226 10^3/UL (140-415); RED BLOOD COUNT 3.22 10^6/ul (4.70-6.10); RED CELL DISTRIBUTION WIDTH 15.7 % (11.5-14.5)
[2017-07-15 06:10] LABS: WHITE BLOOD COUNT 8.7 10^3/ul (4.8-10.8)
[2017-07-15 06:37] LABS: B-TYPE NATRIURETIC PEPTIDE 2300 PG/ML (0-125)
[2017-07-15 06:40] LABS: ALANINE AMINOTRANSFERASE 74 IU/L (13-69); ALBUMIN 3.6 g/dl (3.3-4.9); ALBUMIN/GLOBULIN RATIO 1.05; ALKALINE PHOSPHATASE 167 IU/L (42-121); ANION GAP 15 (8-16); ASPARTATE AMINO TRANSFERASE 35 IU/L (15-46); BILIRUBIN,INDIRECT 0.2 mg/dl (0-1.1); BILIRUBIN,TOTAL 0.2 mg/dl (0.2-1.3); BLOOD UREA NITROGEN 45 mg/dl (7-20); CALCIUM 8.6 mg/dl (8.4-10.2); CARBON DIOXIDE 34 mmol/L (21-31); CHLORIDE 98 mmol/L (97-110); CREATININE 1.02 mg/dl (0.61-1.24); GLUCOSE 242 mg/dl (70-220); POTASSIUM 4.6 mmol/L (3.5-5.1); SODIUM 142 mmol/L (135-144)
[2017-07-15] MEDS: SALMETEROL/FLUTICASONE 250/50 INHA INH ×2 (08:31→21:40)
[2017-07-15] MEDS: NICOTINE (14 MG/24 HR) PATCH TRANSDERM (08:32)
[2017-07-15] MEDS: HEPARIN 5,000 UNIT/0.5 ML VIAL SC ×2 (08:32→21:00)
[2017-07-15] MEDS: DOCUSATE SODIUM 100 MG CAP PO ×2 (08:33→21:40)
[2017-07-15] MEDS: THIAMINE 100 MG TAB PO (08:33)
[2017-07-15] MEDS: GABAPENTIN 300 MG CAP PO ×3 (08:33→21:40)
[2017-07-15] MEDS: FERROUS SULFATE (EC) 325 MG TAB PO ×2 (08:33→21:39)
[2017-07-15] MEDS: NIFEdipine (XL) 90 MG TAB PO (08:33)
[2017-07-15] MEDS: ACETAMINOPHEN 325 MG TAB PO ×3 (08:34→21:58)
[2017-07-15] MEDS: ASPIRIN 81 MG TAB PO (08:34)
[2017-07-15] MEDS: LOSARTAN 50 MG TAB PO (08:34)
[2017-07-15] MEDS: INSULIN ASPART [NOVOLOG] 3 ML PEN SC ×7 (08:36→21:00)
[2017-07-15] MEDS: LEVOFLOXACIN 750MG/D5W (PMX) 150 ML IVPB (12:05)
[2017-07-15] MEDS: FUROSEMIDE 20 MG INJ IV (16:15)
[2017-07-15] MEDS: TAMSULOSIN (SR) 0.4 MG CAP PO (21:40)
[2017-07-15] MEDS: INSULIN GLARGINE [LANtus] 3 ML PEN SC (21:51)
[2017-07-15 22:30] LABS: CREATINE KINASE 53 IU/L (23-200)
[2017-07-15 22:42] LABS: CK INDEX 2.5; CK-MB 1.33 ng/ml (0.0-2.4); TROPONIN-I 0.023 ng/ml (0.00-0.12)
[2017-07-16] MEDS: LORAZEPAM 2 MG INJ IV (00:29)
[2017-07-16] MEDS: ACCU-CHEK XX (02:00)
[2017-07-16 07:15] LABS: ADD MAN DIFF? NO
[2017-07-16 07:24] LABS: BASOPHILS % 0.3 % (0.0-2.0); EOSINOPHILS # 0.2 10^3/ul (0.0-0.5); EOSINOPHILS % 2.1 % (0.0-7.0); HEMATOCRIT 28.7 % (42.0-52.0); HEMOGLOBIN 8.5 g/dl (14.0-18.0); LYMPHOCYTES # 1.5 10^3/ul (0.8-2.9); LYMPHOCYTES % 20.7 % (15.0-51.0); MEAN CORPUSCULAR HEMOGLOBIN 26.3 pg (29.0-33.0); MEAN CORPUSCULAR HGB CONC 29.6 g/dl (32.0-37.0); MEAN CORPUSCULAR VOLUME 88.9 fl (82.0-101.0); MEAN PLATELET VOLUME 9.6 fl (7.4-10.4); MONOCYTE # 0.7 10^3/ul (0.3-0.9); MONOCYTES % 10.1 % (0.0-11.0); NEUTROPHIL # 4.7 10^3/ul (1.6-7.5); NEUTROPHILS % 66.5 % (39.0-77.0); PLATELET COUNT 225 10^3/UL (140-415); RED BLOOD COUNT 3.23 10^6/ul (4.70-6.10); RED CELL DISTRIBUTION WIDTH 15.7 % (11.5-14.5)
[2017-07-16 07:42] LABS: ALANINE AMINOTRANSFERASE 69 IU/L (13-69); ALBUMIN 3.1 g/dl (3.3-4.9); ALBUMIN/GLOBULIN RATIO 1.03; ALKALINE PHOSPHATASE 147 IU/L (42-121); ANION GAP 15 (8-16); ASPARTATE AMINO TRANSFERASE 22 IU/L (15-46); BILIRUBIN,INDIRECT 0.2 mg/dl (0-1.1); BILIRUBIN,TOTAL 0.2 mg/dl (0.2-1.3); BLOOD UREA NITROGEN 50 mg/dl (7-20); CALCIUM 8.9 mg/dl (8.4-10.2); CARBON DIOXIDE 34 mmol/L (21-31); CHLORIDE 99 mmol/L (97-110); CREATININE 1.08 mg/dl (0.61-1.24); GLUCOSE 125 mg/dl (70-220); MAGNESIUM 2.1 mg/dl (1.7-2.5); POTASSIUM 4.7 mmol/L (3.5-5.1); SODIUM 143 mmol/L (135-144); TOTAL PROTEIN 6.1 g/dl (6.1-8.1)
[2017-07-16 07:47] LABS: CREATINE KINASE 47 IU/L (23-200)
[2017-07-16 07:55] LABS: CK INDEX 2.7; TROPONIN-I 0.033 ng/ml (0.00-0.12)
[2017-07-16] MEDS: INSULIN ASPART [NOVOLOG] 3 ML PEN SC ×7 (08:00→21:00)
[2017-07-16 08:02] LABS: CK-MB 1.27 ng/ml (0.0-2.4)
[2017-07-16] MEDS: NICOTINE (14 MG/24 HR) PATCH TRANSDERM (08:33)
[2017-07-16] MEDS: FERROUS SULFATE (EC) 325 MG TAB PO ×2 (08:34→22:06)
[2017-07-16] MEDS: GABAPENTIN 300 MG CAP PO ×3 (08:34→22:06)
[2017-07-16] MEDS: ASPIRIN 81 MG TAB PO (08:34)
[2017-07-16] MEDS: DOCUSATE SODIUM 100 MG CAP PO ×2 (08:34→22:06)
[2017-07-16] MEDS: THIAMINE 100 MG TAB PO (08:34)
[2017-07-16] MEDS: NIFEdipine (XL) 90 MG TAB PO (08:34)
[2017-07-16] MEDS: FUROSEMIDE 40 MG INJ IV ×2 (08:34→12:47)
[2017-07-16] MEDS: LOSARTAN 50 MG TAB PO (08:35)
[2017-07-16] MEDS: HEPARIN 5,000 UNIT/0.5 ML VIAL SC ×2 (09:00→23:37)
[2017-07-16] MEDS: PROPOFOL 0 ML (09:55)
[2017-07-16] MEDS: MIDAZOLAM 1 MG/ML 2 ML INJ (09:56)
[2017-07-16] MEDS: FENTAnyl 50 MCG/ML VIAL (09:56)
[2017-07-16] MEDS: SALMETEROL/FLUTICASONE 250/50 INHA INH ×2 (12:41→22:06)
[2017-07-16] MEDS: LEVOFLOXACIN 750MG/D5W (PMX) 150 ML IVPB (12:47)
[2017-07-16] MEDS: FUROSEMIDE 40 MG TAB PO (18:15)
[2017-07-16] MEDS: ACETAMINOPHEN 325 MG TAB PO ×2 (18:29→22:06)
[2017-07-16] MEDS: TAMSULOSIN (SR) 0.4 MG CAP PO (22:06)
[2017-07-16] MEDS: INSULIN GLARGINE [LANtus] 3 ML PEN SC (22:09)
[2017-07-17] MEDS: ACCU-CHEK XX (02:00)
[2017-07-17] MEDS: FUROSEMIDE 40 MG TAB PO ×2 (06:55→17:30)
[2017-07-17] MEDS: INSULIN ASPART [NOVOLOG] 3 ML PEN SC ×7 (08:35→21:00)
[2017-07-17] MEDS: NIFEdipine (XL) 90 MG TAB PO (08:39)
[2017-07-17] MEDS: GABAPENTIN 300 MG CAP PO ×3 (08:39→21:15)
[2017-07-17] MEDS: THIAMINE 100 MG TAB PO (08:39)
[2017-07-17] MEDS: LOSARTAN 50 MG TAB PO (08:39)
[2017-07-17] MEDS: SALMETEROL/FLUTICASONE 250/50 INHA INH ×2 (08:40→21:15)
[2017-07-17] MEDS: ASPIRIN 81 MG TAB PO (08:40)
[2017-07-17] MEDS: DOCUSATE SODIUM 100 MG CAP PO ×2 (08:40→21:14)
[2017-07-17] MEDS: FERROUS SULFATE (EC) 325 MG TAB PO ×2 (08:40→21:15)
[2017-07-17] MEDS: NICOTINE (14 MG/24 HR) PATCH TRANSDERM (08:41)
[2017-07-17] MEDS: HEPARIN 5,000 UNIT/0.5 ML VIAL SC ×2 (08:42→21:25)
[2017-07-17 10:16] LABS: ADD MAN DIFF? NO
[2017-07-17 10:19] LABS: WHITE BLOOD COUNT 6.2 10^3/ul (4.8-10.8)
[2017-07-17 10:19] LABS: BASOPHILS % 0.3 % (0.0-2.0); EOSINOPHILS # 0.2 10^3/ul (0.0-0.5); EOSINOPHILS % 2.9 % (0.0-7.0); HEMOGLOBIN 8.5 g/dl (14.0-18.0); LYMPHOCYTES # 1.3 10^3/ul (0.8-2.9); LYMPHOCYTES % 20.2 % (15.0-51.0); MEAN CORPUSCULAR HEMOGLOBIN 26.6 pg (29.0-33.0); MEAN CORPUSCULAR HGB CONC 29.3 g/dl (32.0-37.0); MEAN CORPUSCULAR VOLUME 90.9 fl (82.0-101.0); MEAN PLATELET VOLUME 10.1 fl (7.4-10.4); MONOCYTE # 0.9 10^3/ul (0.3-0.9); MONOCYTES % 13.8 % (0.0-11.0); NEUTROPHIL # 3.9 10^3/ul (1.6-7.5); NEUTROPHILS % 62.3 % (39.0-77.0); PLATELET COUNT 235 10^3/UL (140-415); RED BLOOD COUNT 3.19 10^6/ul (4.70-6.10); RED CELL DISTRIBUTION WIDTH 15.7 % (11.5-14.5)
[2017-07-17 10:27] LABS: ALBUMIN 3.2 g/dl (3.3-4.9); ANION GAP 11 (8-16); BLOOD UREA NITROGEN 40 mg/dl (7-20); CALCIUM 8.9 mg/dl (8.4-10.2); CHLORIDE 99 mmol/L (97-110); CREATININE 0.96 mg/dl (0.61-1.24); GLUCOSE 111 mg/dl (70-220); PHOSPHORUS 4.2 mg/dl (2.5-4.9); POTASSIUM 4.6 mmol/L (3.5-5.1); SODIUM 145 mmol/L (135-144)
[2017-07-17 10:37] LABS: CARBON DIOXIDE 40 mmol/L (21-31)
[2017-07-17] MEDS: ACETAMINOPHEN 325 MG TAB PO ×2 (13:41→21:29)
[2017-07-17] MEDS: LEVALBUTEROL (NEB) 0.63 MG/3 ML AMP HHN (15:53)
[2017-07-17] MEDS: IPRATROPIUM (NEB) 0.5 MG/2.5 ML AMP HHN (15:53)
[2017-07-17] MEDS: TAMSULOSIN (SR) 0.4 MG CAP PO (21:14)
[2017-07-17] MEDS: INSULIN GLARGINE [LANtus] 3 ML PEN SC (21:25)
[2017-07-18] MEDS: ACCU-CHEK XX (02:00)
[2017-07-18 06:08] LABS: ADD MAN DIFF? NO
[2017-07-18 06:13] LABS: WHITE BLOOD COUNT 5.6 10^3/ul (4.8-10.8)
[2017-07-18 06:13] LABS: BASOPHILS % 0.5 % (0.0-2.0); EOSINOPHILS # 0.3 10^3/ul (0.0-0.5); EOSINOPHILS % 4.6 % (0.0-7.0); HEMATOCRIT 29.2 % (42.0-52.0); HEMOGLOBIN 8.8 g/dl (14.0-18.0); LYMPHOCYTES # 1.2 10^3/ul (0.8-2.9); LYMPHOCYTES % 20.4 % (15.0-51.0); MEAN CORPUSCULAR HEMOGLOBIN 26.7 pg (29.0-33.0); MEAN CORPUSCULAR HGB CONC 30.1 g/dl (32.0-37.0); MEAN CORPUSCULAR VOLUME 88.5 fl (82.0-101.0); MEAN PLATELET VOLUME 9.3 fl (7.4-10.4); MONOCYTE # 0.8 10^3/ul (0.3-0.9); MONOCYTES % 13.3 % (0.0-11.0); NEUTROPHIL # 3.4 10^3/ul (1.6-7.5); NEUTROPHILS % 60.8 % (39.0-77.0); PLATELET COUNT 237 10^3/UL (140-415); RED CELL DISTRIBUTION WIDTH 15.5 % (11.5-14.5)
[2017-07-18] MEDS: FUROSEMIDE 40 MG TAB PO (06:15)
[2017-07-18 06:46] LABS: ALBUMIN 3.3 g/dl (3.3-4.9); ANION GAP 20 (8-16); BLOOD UREA NITROGEN 36 mg/dl (7-20); CALCIUM 9.1 mg/dl (8.4-10.2); CHLORIDE 95 mmol/L (97-110); CREATININE 0.94 mg/dl (0.61-1.24); GLUCOSE 72 mg/dl (70-220); PHOSPHORUS 4.5 mg/dl (2.5-4.9); POTASSIUM 4.5 mmol/L (3.5-5.1); SODIUM 146 mmol/L (135-144)
[2017-07-18 06:47] LABS: CARBON DIOXIDE 36 mmol/L (21-31)
[2017-07-18] MEDS: INSULIN ASPART [NOVOLOG] 3 ML PEN SC ×7 (08:00→21:01)
[2017-07-18] MEDS: HEPARIN 5,000 UNIT/0.5 ML VIAL SC ×2 (09:11→21:02)
[2017-07-18] MEDS: ACETAMINOPHEN 325 MG TAB PO ×3 (09:13→21:33)
[2017-07-18] MEDS: THIAMINE 100 MG TAB PO (09:14)
[2017-07-18] MEDS: LOSARTAN 50 MG TAB PO (09:14)
[2017-07-18] MEDS: DOCUSATE SODIUM 100 MG CAP PO ×2 (09:14→20:52)
[2017-07-18] MEDS: NIFEdipine (XL) 90 MG TAB PO (09:14)
[2017-07-18] MEDS: FERROUS SULFATE (EC) 325 MG TAB PO ×2 (09:14→20:52)
[2017-07-18] MEDS: ASPIRIN 81 MG TAB PO (09:14)
[2017-07-18] MEDS: SALMETEROL/FLUTICASONE 250/50 INHA INH ×2 (09:15→20:53)
[2017-07-18] MEDS: NICOTINE (14 MG/24 HR) PATCH TRANSDERM (09:15)
[2017-07-18] MEDS: GABAPENTIN 300 MG CAP PO ×3 (09:15→20:52)
[2017-07-18] MEDS: FUROSEMIDE 20 MG INJ IV (15:41)
[2017-07-18] MEDS: FUROSEMIDE 40 MG INJ IV (17:32)
[2017-07-18] MEDS: TAMSULOSIN (SR) 0.4 MG CAP PO (20:52)
[2017-07-18] MEDS: INSULIN GLARGINE [LANtus] 3 ML PEN SC (21:00)
[2017-07-19] MEDS: ACCU-CHEK XX (02:43)
[2017-07-19] MEDS: FUROSEMIDE 40 MG INJ IV (05:29)
[2017-07-19 07:33] LABS: ADD MAN DIFF? NO
[2017-07-19 07:36] LABS: WHITE BLOOD COUNT 6.2 10^3/ul (4.8-10.8)
[2017-07-19 07:36] LABS: BASOPHILS % 0.5 % (0.0-2.0); EOSINOPHILS # 0.3 10^3/ul (0.0-0.5); EOSINOPHILS % 5.2 % (0.0-7.0); HEMATOCRIT 30.9 % (42.0-52.0); HEMOGLOBIN 9.2 g/dl (14.0-18.0); LYMPHOCYTES # 1.4 10^3/ul (0.8-2.9); LYMPHOCYTES % 22.3 % (15.0-51.0); MEAN CORPUSCULAR HEMOGLOBIN 26.6 pg (29.0-33.0); MEAN CORPUSCULAR HGB CONC 29.8 g/dl (32.0-37.0); MEAN CORPUSCULAR VOLUME 89.3 fl (82.0-101.0); MEAN PLATELET VOLUME 9.7 fl (7.4-10.4); MONOCYTE # 0.6 10^3/ul (0.3-0.9); MONOCYTES % 10.4 % (0.0-11.0); NEUTROPHIL # 3.8 10^3/ul (1.6-7.5); NEUTROPHILS % 61.3 % (39.0-77.0); PLATELET COUNT 266 10^3/UL (140-415); RED BLOOD COUNT 3.46 10^6/ul (4.70-6.10); RED CELL DISTRIBUTION WIDTH 15.6 % (11.5-14.5)
[2017-07-19 07:53] LABS: ALBUMIN 3.4 g/dl (3.3-4.9); BLOOD UREA NITROGEN 33 mg/dl (7-20); CALCIUM 9.3 mg/dl (8.4-10.2); CHLORIDE 96 mmol/L (97-110); CREATININE 0.88 mg/dl (0.61-1.24); GLUCOSE 159 mg/dl (70-220); MAGNESIUM 1.9 mg/dl (1.7-2.5); PHOSPHORUS 4.1 mg/dl (2.5-4.9); POTASSIUM 4.3 mmol/L (3.5-5.1); SODIUM 148 mmol/L (135-144)
[2017-07-19] MEDS: INSULIN ASPART [NOVOLOG] 3 ML PEN SC ×7 (08:00→20:39)
[2017-07-19 08:02] LABS: ANION GAP 14 (8-16)
[2017-07-19 08:03] LABS: CARBON DIOXIDE 42 mmol/L (21-31)
[2017-07-19] MEDS: GABAPENTIN 300 MG CAP PO ×3 (08:27→20:23)
[2017-07-19] MEDS: FERROUS SULFATE (EC) 325 MG TAB PO ×2 (08:27→20:23)
[2017-07-19] MEDS: LOSARTAN 50 MG TAB PO (08:27)
[2017-07-19] MEDS: DOCUSATE SODIUM 100 MG CAP PO ×2 (08:27→20:22)
[2017-07-19] MEDS: ASPIRIN 81 MG TAB PO (08:27)
[2017-07-19] MEDS: NIFEdipine (XL) 90 MG TAB PO (08:27)
[2017-07-19] MEDS: THIAMINE 100 MG TAB PO (08:27)
[2017-07-19] MEDS: NICOTINE (14 MG/24 HR) PATCH TRANSDERM (08:28)
[2017-07-19] MEDS: SALMETEROL/FLUTICASONE 250/50 INHA INH ×2 (08:28→20:39)
[2017-07-19] MEDS: HEPARIN 5,000 UNIT/0.5 ML VIAL SC ×2 (08:29→20:39)
[2017-07-19] MEDS: FUROSEMIDE 20 MG INJ IV (17:42)
[2017-07-19] MEDS: TAMSULOSIN (SR) 0.4 MG CAP PO (20:40)
[2017-07-19] MEDS: INSULIN GLARGINE [LANtus] 3 ML PEN SC (20:47)
[2017-07-20] MEDS: ACCU-CHEK XX (02:00)
[2017-07-20] MEDS: FUROSEMIDE 20 MG INJ IV (06:19)
[2017-07-20 07:59] LABS: ADD MAN DIFF? NO
[2017-07-20] MEDS: INSULIN ASPART [NOVOLOG] 3 ML PEN SC ×7 (08:00→21:44)
[2017-07-20 08:03] LABS: WHITE BLOOD COUNT 6.5 10^3/ul (4.8-10.8)
[2017-07-20 08:03] LABS: BASOPHIL # 0.1 10^3/ul (0.0-0.1); BASOPHILS % 0.8 % (0.0-2.0); EOSINOPHILS # 0.4 10^3/ul (0.0-0.5); EOSINOPHILS % 6.2 % (0.0-7.0); HEMATOCRIT 32.5 % (42.0-52.0); HEMOGLOBIN 9.6 g/dl (14.0-18.0); LYMPHOCYTES # 1.4 10^3/ul (0.8-2.9); LYMPHOCYTES % 21.6 % (15.0-51.0); MEAN CORPUSCULAR HEMOGLOBIN 25.9 pg (29.0-33.0); MEAN CORPUSCULAR HGB CONC 29.5 g/dl (32.0-37.0); MEAN CORPUSCULAR VOLUME 87.6 fl (82.0-101.0); MEAN PLATELET VOLUME 9.1 fl (7.4-10.4); MONOCYTE # 0.7 10^3/ul (0.3-0.9); NEUTROPHILS % 61.1 % (39.0-77.0); PLATELET COUNT 266 10^3/UL (140-415); RED BLOOD COUNT 3.71 10^6/ul (4.70-6.10); RED CELL DISTRIBUTION WIDTH 15.5 % (11.5-14.5)
[2017-07-20] MEDS: FERROUS SULFATE (EC) 325 MG TAB PO ×2 (08:12→21:46)
[2017-07-20] MEDS: SALMETEROL/FLUTICASONE 250/50 INHA INH ×2 (08:12→21:42)
[2017-07-20] MEDS: DOCUSATE SODIUM 100 MG CAP PO ×2 (08:12→21:46)
[2017-07-20] MEDS: ASPIRIN 81 MG TAB PO (08:13)
[2017-07-20] MEDS: GABAPENTIN 300 MG CAP PO ×3 (08:13→21:46)
[2017-07-20] MEDS: THIAMINE 100 MG TAB PO (08:13)
[2017-07-20] MEDS: HEPARIN 5,000 UNIT/0.5 ML VIAL SC ×2 (08:14→21:44)
[2017-07-20] MEDS: NIFEdipine (XL) 90 MG TAB PO (08:15)
[2017-07-20] MEDS: LOSARTAN 50 MG TAB PO (08:16)
[2017-07-20] MEDS: NICOTINE (14 MG/24 HR) PATCH TRANSDERM (08:17)
[2017-07-20 08:24] LABS: ALBUMIN 3.5 g/dl (3.3-4.9); BLOOD UREA NITROGEN 30 mg/dl (7-20); CALCIUM 9.1 mg/dl (8.4-10.2); CHLORIDE 90 mmol/L (97-110); CREATININE 0.84 mg/dl (0.61-1.24); GLUCOSE 134 mg/dl (70-220); MAGNESIUM 1.9 mg/dl (1.7-2.5); PHOSPHORUS 3.8 mg/dl (2.5-4.9); POTASSIUM 4.3 mmol/L (3.5-5.1); SODIUM 142 mmol/L (135-144)
[2017-07-20 08:32] LABS: ANION GAP 13 (8-16)
[2017-07-20 08:35] LABS: CARBON DIOXIDE 43 mmol/L (21-31)
[2017-07-20] MEDS: BISACODYL 10 MG SUPP PR (14:35)
[2017-07-20] MEDS: FUROSEMIDE 40 MG TAB PO (17:22)
[2017-07-20] MEDS: morphine LIQ (10 MG/5 ML) CUP PO (21:41)
[2017-07-20] MEDS: INSULIN GLARGINE [LANtus] 3 ML PEN SC (21:45)
[2017-07-20] MEDS: TAMSULOSIN (SR) 0.4 MG CAP PO (21:46)
[2017-07-21] MEDS: ACCU-CHEK XX (02:00)
[2017-07-21] MEDS: FUROSEMIDE 40 MG TAB PO ×2 (06:31→17:31)
[2017-07-21] MEDS: SALMETEROL/FLUTICASONE 250/50 INHA INH ×2 (08:24→21:16)
[2017-07-21] MEDS: DOCUSATE SODIUM 100 MG CAP PO ×2 (08:24→21:12)
[2017-07-21] MEDS: GABAPENTIN 300 MG CAP PO ×3 (08:24→21:13)
[2017-07-21] MEDS: FERROUS SULFATE (EC) 325 MG TAB PO ×2 (08:24→21:12)
[2017-07-21] MEDS: NIFEdipine (XL) 90 MG TAB PO (08:24)
[2017-07-21] MEDS: THIAMINE 100 MG TAB PO (08:25)
[2017-07-21] MEDS: NICOTINE (14 MG/24 HR) PATCH TRANSDERM (08:25)
[2017-07-21] MEDS: LOSARTAN 50 MG TAB PO (08:25)
[2017-07-21] MEDS: ASPIRIN 81 MG TAB PO (08:25)
[2017-07-21] MEDS: HEPARIN 5,000 UNIT/0.5 ML VIAL SC ×2 (08:29→21:16)
[2017-07-21] MEDS: INSULIN ASPART [NOVOLOG] 3 ML PEN SC ×7 (08:30→21:00)
[2017-07-21 09:25] LABS: ADD MAN DIFF? NO
[2017-07-21 09:33] LABS: BASOPHILS % 0.5 % (0.0-2.0); EOSINOPHILS # 0.4 10^3/ul (0.0-0.5); HEMATOCRIT 31.9 % (42.0-52.0); HEMOGLOBIN 9.5 g/dl (14.0-18.0); LYMPHOCYTES # 1.3 10^3/ul (0.8-2.9); LYMPHOCYTES % 21.7 % (15.0-51.0); MEAN CORPUSCULAR HEMOGLOBIN 26.2 pg (29.0-33.0); MEAN CORPUSCULAR HGB CONC 29.8 g/dl (32.0-37.0); MEAN CORPUSCULAR VOLUME 88.1 fl (82.0-101.0); MEAN PLATELET VOLUME 9.1 fl (7.4-10.4); MONOCYTE # 0.6 10^3/ul (0.3-0.9); MONOCYTES % 9.6 % (0.0-11.0); NEUTROPHIL # 3.5 10^3/ul (1.6-7.5); NEUTROPHILS % 60.9 % (39.0-77.0); PLATELET COUNT 306 10^3/UL (140-415); RED BLOOD COUNT 3.62 10^6/ul (4.70-6.10); RED CELL DISTRIBUTION WIDTH 15.6 % (11.5-14.5)
[2017-07-21 09:33] LABS: WHITE BLOOD COUNT 5.8 10^3/ul (4.8-10.8)
[2017-07-21 12:00] LABS: BLOOD UREA NITROGEN 32 mg/dl (7-20); CALCIUM 8.9 mg/dl (8.4-10.2); CHLORIDE 92 mmol/L (97-110); CREATININE 1.06 mg/dl (0.61-1.24); GLUCOSE 158 mg/dl (70-220); PHOSPHORUS 3.9 mg/dl (2.5-4.9); POTASSIUM 4.5 mmol/L (3.5-5.1); SODIUM 142 mmol/L (135-144)
[2017-07-21 12:14] LABS: ANION GAP 13 (8-16); CARBON DIOXIDE 42 mmol/L (21-31)
[2017-07-21] MEDS: BISACODYL (EC) 5 MG TAB PO (13:14)
[2017-07-21] MEDS: ACETAMINOPHEN 325 MG TAB PO (17:53)
[2017-07-21] MEDS: TAMSULOSIN (SR) 0.4 MG CAP PO (21:13)
[2017-07-21] MEDS: INSULIN GLARGINE [LANtus] 3 ML PEN SC (21:15)
[2017-07-22] MEDS: ACCU-CHEK XX (02:00)
[2017-07-22] MEDS: FUROSEMIDE 40 MG TAB PO ×2 (05:57→17:09)
[2017-07-22] MEDS: FERROUS SULFATE (EC) 325 MG TAB PO ×2 (08:00→20:31)
[2017-07-22] MEDS: GABAPENTIN 300 MG CAP PO ×3 (08:01→20:31)
[2017-07-22] MEDS: NIFEdipine (XL) 90 MG TAB PO (08:01)
[2017-07-22] MEDS: ASPIRIN 81 MG TAB PO (08:01)
[2017-07-22] MEDS: THIAMINE 100 MG TAB PO (08:01)
[2017-07-22] MEDS: LOSARTAN 50 MG TAB PO (08:01)
[2017-07-22] MEDS: NICOTINE (14 MG/24 HR) PATCH TRANSDERM (08:01)
[2017-07-22] MEDS: DOCUSATE SODIUM 100 MG CAP PO ×2 (08:01→20:31)
[2017-07-22] MEDS: BISACODYL 10 MG SUPP PR (08:01)
[2017-07-22] MEDS: HEPARIN 5,000 UNIT/0.5 ML VIAL SC ×2 (08:03→20:34)
[2017-07-22] MEDS: INSULIN ASPART [NOVOLOG] 3 ML PEN SC ×7 (08:04→20:34)
[2017-07-22] MEDS: SALMETEROL/FLUTICASONE 250/50 INHA INH ×2 (08:06→20:30)
[2017-07-22 08:25] LABS: ADD MAN DIFF? NO
[2017-07-22 08:31] LABS: BASOPHILS % 0.6 % (0.0-2.0); EOSINOPHILS # 0.4 10^3/ul (0.0-0.5); EOSINOPHILS % 5.8 % (0.0-7.0); HEMATOCRIT 30.1 % (42.0-52.0); HEMOGLOBIN 9.2 g/dl (14.0-18.0); LYMPHOCYTES # 1.8 10^3/ul (0.8-2.9); LYMPHOCYTES % 25.6 % (15.0-51.0); MEAN CORPUSCULAR HEMOGLOBIN 26.8 pg (29.0-33.0); MEAN CORPUSCULAR HGB CONC 30.6 g/dl (32.0-37.0); MEAN CORPUSCULAR VOLUME 87.8 fl (82.0-101.0); MEAN PLATELET VOLUME 9.4 fl (7.4-10.4); MONOCYTE # 0.8 10^3/ul (0.3-0.9); MONOCYTES % 10.7 % (0.0-11.0); NEUTROPHIL # 4.1 10^3/ul (1.6-7.5); NEUTROPHILS % 56.7 % (39.0-77.0); PLATELET COUNT 302 10^3/UL (140-415); RED BLOOD COUNT 3.43 10^6/ul (4.70-6.10); RED CELL DISTRIBUTION WIDTH 15.5 % (11.5-14.5)
[2017-07-22 08:31] LABS: WHITE BLOOD COUNT 7.2 10^3/ul (4.8-10.8)
[2017-07-22 09:00] LABS: BLOOD UREA NITROGEN 42 mg/dl (7-20); CALCIUM 8.8 mg/dl (8.4-10.2); CHLORIDE 95 mmol/L (97-110); CREATININE 1.16 mg/dl (0.61-1.24); GLUCOSE 175 mg/dl (70-220); MAGNESIUM 2.3 mg/dl (1.7-2.5); PHOSPHORUS 4.2 mg/dl (2.5-4.9); POTASSIUM 4.6 mmol/L (3.5-5.1); SODIUM 144 mmol/L (135-144)
[2017-07-22 09:16] LABS: ANION GAP 10 (8-16)
[2017-07-22 09:17] LABS: CARBON DIOXIDE 44 mmol/L (21-31)
[2017-07-22] MEDS ORDERED: NA PHOSPHATE/BIPHOS 133 ML ENEMA PR (13:00)
[2017-07-22] MEDS: INSULIN GLARGINE [LANtus] 3 ML PEN SC (20:31)
[2017-07-22] MEDS: TAMSULOSIN (SR) 0.4 MG CAP PO (20:31)
[2017-07-23] MEDS: ACCU-CHEK XX (02:00)
[2017-07-23] MEDS: FUROSEMIDE 40 MG TAB PO ×2 (06:22→17:27)
[2017-07-23] MEDS: THIAMINE 100 MG TAB PO (08:34)
[2017-07-23] MEDS: NIFEdipine (XL) 90 MG TAB PO (08:34)
[2017-07-23] MEDS: DOCUSATE SODIUM 100 MG CAP PO ×2 (08:34→21:42)
[2017-07-23] MEDS: FERROUS SULFATE (EC) 325 MG TAB PO ×2 (08:34→21:42)
[2017-07-23] MEDS: GABAPENTIN 300 MG CAP PO ×3 (08:34→21:45)
[2017-07-23] MEDS: LOSARTAN 50 MG TAB PO (08:35)
[2017-07-23] MEDS: ASPIRIN 81 MG TAB PO (08:35)
[2017-07-23] MEDS: SALMETEROL/FLUTICASONE 250/50 INHA INH ×2 (08:36→21:42)
[2017-07-23] MEDS: NICOTINE (14 MG/24 HR) PATCH TRANSDERM (08:38)
[2017-07-23] MEDS: INSULIN ASPART [NOVOLOG] 3 ML PEN SC ×7 (08:52→21:52)
[2017-07-23] MEDS: HEPARIN 5,000 UNIT/0.5 ML VIAL SC ×2 (08:52→21:46)
[2017-07-23] MEDS: ACETAMINOPHEN 325 MG TAB PO (12:23)
[2017-07-23] MEDS: TAMSULOSIN (SR) 0.4 MG CAP PO (21:45)
[2017-07-23] MEDS: INSULIN GLARGINE [LANtus] 3 ML PEN SC (21:51)
[2017-07-24] MEDS: ACCU-CHEK XX (02:00)
[2017-07-24] MEDS: FUROSEMIDE 40 MG TAB PO ×2 (06:14→17:14)
[2017-07-24] MEDS: GABAPENTIN 300 MG CAP PO ×3 (08:07→21:08)
[2017-07-24] MEDS: DOCUSATE SODIUM 100 MG CAP PO ×2 (08:07→21:08)
[2017-07-24] MEDS: FERROUS SULFATE (EC) 325 MG TAB PO ×2 (08:07→21:09)
[2017-07-24] MEDS: THIAMINE 100 MG TAB PO (08:07)
[2017-07-24] MEDS: LOSARTAN 50 MG TAB PO (08:07)
[2017-07-24] MEDS: ASPIRIN 81 MG TAB PO (08:08)
[2017-07-24] MEDS: NICOTINE (14 MG/24 HR) PATCH TRANSDERM (08:08)
[2017-07-24] MEDS: SALMETEROL/FLUTICASONE 250/50 INHA INH ×2 (08:08→21:19)
[2017-07-24] MEDS: INSULIN ASPART [NOVOLOG] 3 ML PEN SC ×7 (08:15→21:22)
[2017-07-24] MEDS: BISACODYL 10 MG SUPP PR (08:26)
[2017-07-24] MEDS: HEPARIN 5,000 UNIT/0.5 ML VIAL SC ×2 (08:38→21:23)
[2017-07-24] MEDS: NIFEdipine (XL) 90 MG TAB PO (08:39)
[2017-07-24] MEDS: TAMSULOSIN (SR) 0.4 MG CAP PO (21:08)
[2017-07-24] MEDS: INSULIN GLARGINE [LANtus] 3 ML PEN SC (21:23)
[2017-07-25] MEDS: ACCU-CHEK XX (02:00)
[2017-07-25] MEDS: FUROSEMIDE 40 MG TAB PO ×2 (05:57→17:19)
[2017-07-25] MEDS: INSULIN ASPART [NOVOLOG] 3 ML PEN SC ×7 (07:55→21:48)
[2017-07-25] MEDS: GABAPENTIN 300 MG CAP PO ×3 (08:05→21:44)
[2017-07-25] MEDS: HEPARIN 5,000 UNIT/0.5 ML VIAL SC ×2 (08:05→21:45)
[2017-07-25] MEDS: DOCUSATE SODIUM 100 MG CAP PO ×2 (08:08→21:44)
[2017-07-25] MEDS: FERROUS SULFATE (EC) 325 MG TAB PO ×2 (08:08→21:44)
[2017-07-25] MEDS: ASPIRIN 81 MG TAB PO (08:08)
[2017-07-25] MEDS: LOSARTAN 50 MG TAB PO (08:14)
[2017-07-25] MEDS: NICOTINE (14 MG/24 HR) PATCH TRANSDERM (08:14)
[2017-07-25] MEDS: THIAMINE 100 MG TAB PO (08:14)
[2017-07-25] MEDS: NIFEdipine (XL) 90 MG TAB PO (08:14)
[2017-07-25] MEDS: ACETAMINOPHEN 325 MG TAB PO (12:04)
[2017-07-25] MEDS: SALMETEROL/FLUTICASONE 250/50 INHA INH ×2 (12:10→21:42)
[2017-07-25] MEDS: TAMSULOSIN (SR) 0.4 MG CAP PO (21:44)
[2017-07-25] MEDS: INSULIN GLARGINE [LANtus] 3 ML PEN SC (21:48)
[2017-07-26] MEDS: ACCU-CHEK XX (02:00)
[2017-07-26] MEDS: FUROSEMIDE 40 MG TAB PO ×2 (06:52→17:41)
[2017-07-26 07:51] LABS: ADD MAN DIFF? NO
[2017-07-26 08:05] LABS: WHITE BLOOD COUNT 7.6 10^3/ul (4.8-10.8)
[2017-07-26 08:05] LABS: BASOPHILS % 0.4 % (0.0-2.0); EOSINOPHILS # 0.3 10^3/ul (0.0-0.5); EOSINOPHILS % 3.4 % (0.0-7.0); HEMOGLOBIN 8.5 g/dl (14.0-18.0); LYMPHOCYTES # 1.8 10^3/ul (0.8-2.9); LYMPHOCYTES % 23.2 % (15.0-51.0); MEAN CORPUSCULAR HEMOGLOBIN 26.9 pg (29.0-33.0); MEAN CORPUSCULAR HGB CONC 30.4 g/dl (32.0-37.0); MEAN CORPUSCULAR VOLUME 88.6 fl (82.0-101.0); MEAN PLATELET VOLUME 9.7 fl (7.4-10.4); MONOCYTES % 12.8 % (0.0-11.0); NEUTROPHIL # 4.5 10^3/ul (1.6-7.5); NEUTROPHILS % 59.3 % (39.0-77.0); PLATELET COUNT 325 10^3/UL (140-415); RED BLOOD COUNT 3.16 10^6/ul (4.70-6.10); RED CELL DISTRIBUTION WIDTH 15.4 % (11.5-14.5)
[2017-07-26 08:35] LABS: ANION GAP 12 (8-16); BLOOD UREA NITROGEN 43 mg/dl (7-20); CALCIUM 8.8 mg/dl (8.4-10.2); CARBON DIOXIDE 37 mmol/L (21-31); CHLORIDE 96 mmol/L (97-110); CREATININE 1.07 mg/dl (0.61-1.24); GLUCOSE 264 mg/dl (70-220); MAGNESIUM 2.3 mg/dl (1.7-2.5); POTASSIUM 4.9 mmol/L (3.5-5.1); SODIUM 140 mmol/L (135-144)
[2017-07-26] MEDS: INSULIN ASPART [NOVOLOG] 3 ML PEN SC ×7 (08:41→20:35)
[2017-07-26] MEDS: LOSARTAN 50 MG TAB PO (09:34)
[2017-07-26] MEDS: GABAPENTIN 300 MG CAP PO ×3 (09:34→20:30)
[2017-07-26] MEDS: NIFEdipine (XL) 90 MG TAB PO (09:34)
[2017-07-26] MEDS: ASPIRIN 81 MG TAB PO (09:34)
[2017-07-26] MEDS: FERROUS SULFATE (EC) 325 MG TAB PO ×2 (09:34→20:30)
[2017-07-26] MEDS: DOCUSATE SODIUM 100 MG CAP PO ×2 (09:34→20:27)
[2017-07-26] MEDS: NICOTINE (14 MG/24 HR) PATCH TRANSDERM (09:35)
[2017-07-26] MEDS: SALMETEROL/FLUTICASONE 250/50 INHA INH ×2 (09:35→20:27)
[2017-07-26] MEDS: HEPARIN 5,000 UNIT/0.5 ML VIAL SC ×2 (09:38→20:29)
[2017-07-26] MEDS: THIAMINE 100 MG TAB PO (12:32)
[2017-07-26] MEDS: TAMSULOSIN (SR) 0.4 MG CAP PO (20:29)
[2017-07-26] MEDS: INSULIN GLARGINE [LANtus] 3 ML PEN SC (20:36)
[2017-07-26] MEDS: ACETAMINOPHEN 325 MG TAB PO (20:47)
[2017-07-26] MEDS: BISACODYL 10 MG SUPP PR (20:56)
[2017-07-27] MEDS: ACCU-CHEK XX (01:40)
[2017-07-27] MEDS: INSULIN ASPART [NOVOLOG] 3 ML PEN SC ×8 (01:59→20:41)
[2017-07-27] MEDS: FUROSEMIDE 40 MG TAB PO ×2 (05:47→17:08)
[2017-07-27] MEDS: LOSARTAN 50 MG TAB PO (08:29)
[2017-07-27] MEDS: DOCUSATE SODIUM 100 MG CAP PO ×2 (08:29→20:43)
[2017-07-27] MEDS: SALMETEROL/FLUTICASONE 250/50 INHA INH ×2 (08:29→20:43)
[2017-07-27] MEDS: NIFEdipine (XL) 90 MG TAB PO (08:30)
[2017-07-27] MEDS: THIAMINE 100 MG TAB PO (08:30)
[2017-07-27] MEDS: GABAPENTIN 300 MG CAP PO ×3 (08:30→20:30)
[2017-07-27] MEDS: FERROUS SULFATE (EC) 325 MG TAB PO ×2 (08:30→20:30)
[2017-07-27] MEDS: ASPIRIN 81 MG TAB PO (08:30)
[2017-07-27] MEDS: NICOTINE (14 MG/24 HR) PATCH TRANSDERM (08:31)
[2017-07-27] MEDS: HEPARIN 5,000 UNIT/0.5 ML VIAL SC ×2 (08:34→20:41)
[2017-07-27] MEDS: ACETAMINOPHEN 325 MG TAB PO (19:48)
[2017-07-27] MEDS: TAMSULOSIN (SR) 0.4 MG CAP PO (20:31)
[2017-07-27] MEDS: INSULIN GLARGINE [LANtus] 3 ML PEN SC (20:42)
[2017-07-28] MEDS: ACCU-CHEK XX (02:47)
[2017-07-28] MEDS: FUROSEMIDE 40 MG TAB PO ×2 (05:32→17:17)
[2017-07-28] MEDS: FERROUS SULFATE (EC) 325 MG TAB PO ×2 (08:26→20:06)
[2017-07-28] MEDS: THIAMINE 100 MG TAB PO (08:26)
[2017-07-28] MEDS: DOCUSATE SODIUM 100 MG CAP PO ×2 (08:26→20:06)
[2017-07-28] MEDS: ASPIRIN 81 MG TAB PO (08:26)
[2017-07-28] MEDS: GABAPENTIN 300 MG CAP PO ×3 (08:26→20:06)
[2017-07-28] MEDS: LOSARTAN 50 MG TAB PO (08:27)
[2017-07-28] MEDS: NIFEdipine (XL) 90 MG TAB PO (08:27)
[2017-07-28] MEDS: SALMETEROL/FLUTICASONE 250/50 INHA INH ×2 (08:27→20:07)
[2017-07-28] MEDS: NICOTINE (14 MG/24 HR) PATCH TRANSDERM (08:31)
[2017-07-28] MEDS: INSULIN ASPART [NOVOLOG] 3 ML PEN SC ×7 (08:33→20:17)
[2017-07-28] MEDS: HEPARIN 5,000 UNIT/0.5 ML VIAL SC ×2 (08:33→20:15)
[2017-07-28] MEDS: BISACODYL (EC) 5 MG TAB PO (17:17)
[2017-07-28] MEDS: BISACODYL 10 MG SUPP PR (18:03)
[2017-07-28] MEDS: ACETAMINOPHEN 325 MG TAB PO (20:06)
[2017-07-28] MEDS: TAMSULOSIN (SR) 0.4 MG CAP PO (20:07)
[2017-07-28] MEDS: INSULIN GLARGINE [LANtus] 3 ML PEN SC (20:17)
[2017-07-29] MEDS: ACCU-CHEK XX (02:00)
[2017-07-29] MEDS: FUROSEMIDE 40 MG TAB PO ×2 (06:12→17:35)
[2017-07-29] MEDS: FERROUS SULFATE (EC) 325 MG TAB PO ×2 (08:32→21:49)
[2017-07-29] MEDS: ASPIRIN 81 MG TAB PO (08:32)
[2017-07-29] MEDS: GABAPENTIN 300 MG CAP PO ×3 (08:33→21:00)
[2017-07-29] MEDS: LOSARTAN 50 MG TAB PO (08:33)
[2017-07-29] MEDS: DOCUSATE SODIUM 100 MG CAP PO ×2 (08:33→21:50)
[2017-07-29] MEDS: NICOTINE (14 MG/24 HR) PATCH TRANSDERM (08:33)
[2017-07-29] MEDS: THIAMINE 100 MG TAB PO (08:33)
[2017-07-29] MEDS: NIFEdipine (XL) 90 MG TAB PO (08:33)
[2017-07-29] MEDS: SALMETEROL/FLUTICASONE 250/50 INHA INH ×2 (08:34→21:49)
[2017-07-29] MEDS: INSULIN ASPART [NOVOLOG] 3 ML PEN SC ×7 (08:42→21:00)
[2017-07-29] MEDS: HEPARIN 5,000 UNIT/0.5 ML VIAL SC ×2 (08:42→22:00)
[2017-07-29] MEDS: ACETAMINOPHEN 325 MG TAB PO ×2 (12:31→21:50)
[2017-07-29] MEDS: TAMSULOSIN (SR) 0.4 MG CAP PO (21:50)
[2017-07-29] MEDS: INSULIN GLARGINE [LANtus] 3 ML PEN SC (21:58)
[2017-07-29] MEDS: morphine LIQ (10 MG/5 ML) CUP PO (23:35)
[2017-07-30] MEDS: ACCU-CHEK XX (02:00)
[2017-07-30] MEDS: FUROSEMIDE 40 MG TAB PO ×2 (06:12→17:38)
[2017-07-30 07:15] LABS: ALBUMIN 3.1 g/dl (3.3-4.9); ANION GAP 14 (8-16); BLOOD UREA NITROGEN 44 mg/dl (7-20); CALCIUM 8.6 mg/dl (8.4-10.2); CARBON DIOXIDE 34 mmol/L (21-31); CHLORIDE 98 mmol/L (97-110); CREATININE 1.29 mg/dl (0.61-1.24); GLUCOSE 156 mg/dl (70-220); MAGNESIUM 2.2 mg/dl (1.7-2.5); PHOSPHORUS 6.3 mg/dl (2.5-4.9); POTASSIUM 4.7 mmol/L (3.5-5.1); SODIUM 141 mmol/L (135-144)
[2017-07-30] MEDS: INSULIN ASPART [NOVOLOG] 3 ML PEN SC ×7 (08:15→21:00)
[2017-07-30] MEDS: HEPARIN 5,000 UNIT/0.5 ML VIAL SC ×2 (08:38→20:56)
[2017-07-30] MEDS: THIAMINE 100 MG TAB PO (08:39)
[2017-07-30] MEDS: GABAPENTIN 300 MG CAP PO ×3 (08:40→20:48)
[2017-07-30] MEDS: DOCUSATE SODIUM 100 MG CAP PO ×2 (08:40→20:48)
[2017-07-30] MEDS: ACETAMINOPHEN 325 MG TAB PO (08:40)
[2017-07-30] MEDS: ASPIRIN 81 MG TAB PO (08:40)
[2017-07-30] MEDS: LOSARTAN 50 MG TAB PO (08:40)
[2017-07-30] MEDS: FERROUS SULFATE (EC) 325 MG TAB PO ×2 (08:40→20:48)
[2017-07-30] MEDS: SALMETEROL/FLUTICASONE 250/50 INHA INH ×2 (08:41→21:01)
[2017-07-30] MEDS: NIFEdipine (XL) 90 MG TAB PO (08:41)
[2017-07-30] MEDS: NICOTINE (14 MG/24 HR) PATCH TRANSDERM (08:46)
[2017-07-30] MEDS: morphine LIQ (10 MG/5 ML) CUP PO ×2 (17:38→22:36)
[2017-07-30] MEDS: TAMSULOSIN (SR) 0.4 MG CAP PO (20:48)
[2017-07-30] MEDS: INSULIN GLARGINE [LANtus] 3 ML PEN SC (21:05)
[2017-07-30] MEDS: BISACODYL 10 MG SUPP PR (21:10)
[2017-07-31] MEDS: ACCU-CHEK XX (02:00)
[2017-07-31] MEDS: FUROSEMIDE 40 MG TAB PO (05:55)
[2017-07-31 06:45] LABS: ALBUMIN 3.2 g/dl (3.3-4.9); ANION GAP 10 (8-16); BLOOD UREA NITROGEN 49 mg/dl (7-20); CALCIUM 8.9 mg/dl (8.4-10.2); CARBON DIOXIDE 38 mmol/L (21-31); CHLORIDE 100 mmol/L (97-110); CREATININE 1.21 mg/dl (0.61-1.24); GLUCOSE 175 mg/dl (70-220); MAGNESIUM 2.2 mg/dl (1.7-2.5); SODIUM 143 mmol/L (135-144)
[2017-07-31] MEDS: THIAMINE 100 MG TAB PO (08:07)
[2017-07-31] MEDS: NIFEdipine (XL) 90 MG TAB PO (08:07)
[2017-07-31] MEDS: DOCUSATE SODIUM 100 MG CAP PO ×2 (08:07→20:30)
[2017-07-31] MEDS: FERROUS SULFATE (EC) 325 MG TAB PO ×2 (08:07→20:30)
[2017-07-31] MEDS: SALMETEROL/FLUTICASONE 250/50 INHA INH ×2 (08:07→20:29)
[2017-07-31] MEDS: ASPIRIN 81 MG TAB PO (08:07)
[2017-07-31] MEDS: GABAPENTIN 300 MG CAP PO ×3 (08:07→20:29)
[2017-07-31] MEDS: morphine LIQ (10 MG/5 ML) CUP PO (08:09)
[2017-07-31] MEDS: LOSARTAN 50 MG TAB PO (08:09)
[2017-07-31] MEDS: NICOTINE (14 MG/24 HR) PATCH TRANSDERM (08:09)
[2017-07-31] MEDS: INSULIN ASPART [NOVOLOG] 3 ML PEN SC ×7 (08:14→20:41)
[2017-07-31] MEDS: HEPARIN 5,000 UNIT/0.5 ML VIAL SC ×2 (08:14→20:39)
[2017-07-31] MEDS: BISACODYL (EC) 5 MG TAB PO (09:51)
[2017-07-31] MEDS: BUMETANIDE 1 MG INJ IV ×2 (17:48→20:29)
[2017-07-31] MEDS: TAMSULOSIN (SR) 0.4 MG CAP PO (20:40)
[2017-07-31] MEDS: ACETAMINOPHEN 325 MG TAB PO (20:40)
[2017-07-31] MEDS: INSULIN GLARGINE [LANtus] 3 ML PEN SC (20:50)
[2017-08-01] MEDS: ACCU-CHEK XX ×2 (01:52→22:24)
[2017-08-01] MEDS: BUMETANIDE 1 MG INJ IV ×2 (05:52→18:18)
[2017-08-01 06:02] LABS: ADD MAN DIFF? NO
[2017-08-01 06:08] LABS: BASOPHILS % 0.5 % (0.0-2.0); EOSINOPHILS # 0.1 10^3/ul (0.0-0.5); EOSINOPHILS % 1.7 % (0.0-7.0); HEMATOCRIT 26.5 % (42.0-52.0); HEMOGLOBIN 7.8 g/dl (14.0-18.0); LYMPHOCYTES # 1.2 10^3/ul (0.8-2.9); LYMPHOCYTES % 14.4 % (15.0-51.0); MEAN CORPUSCULAR HEMOGLOBIN 26.1 pg (29.0-33.0); MEAN CORPUSCULAR HGB CONC 29.4 g/dl (32.0-37.0); MEAN CORPUSCULAR VOLUME 88.6 fl (82.0-101.0); MEAN PLATELET VOLUME 9.8 fl (7.4-10.4); MONOCYTE # 0.7 10^3/ul (0.3-0.9); MONOCYTES % 8.1 % (0.0-11.0); NEUTROPHIL # 6.2 10^3/ul (1.6-7.5); NEUTROPHILS % 74.6 % (39.0-77.0); PLATELET COUNT 308 10^3/UL (140-415); RED BLOOD COUNT 2.99 10^6/ul (4.70-6.10); RED CELL DISTRIBUTION WIDTH 15.8 % (11.5-14.5)
[2017-08-01 06:08] LABS: WHITE BLOOD COUNT 8.3 10^3/ul (4.8-10.8)
[2017-08-01 06:27] LABS: ANION GAP 13 (8-16); BLOOD UREA NITROGEN 58 mg/dl (7-20); CALCIUM 8.9 mg/dl (8.4-10.2); CARBON DIOXIDE 34 mmol/L (21-31); CHLORIDE 100 mmol/L (97-110); CREATININE 1.21 mg/dl (0.61-1.24); GLUCOSE 216 mg/dl (70-220); MAGNESIUM 2.1 mg/dl (1.7-2.5); PHOSPHORUS 5.6 mg/dl (2.5-4.9); POTASSIUM 5.4 mmol/L (3.5-5.1); SODIUM 142 mmol/L (135-144)
[2017-08-01 06:35] LABS: ALANINE AMINOTRANSFERASE 36 IU/L (13-69); ALBUMIN 3.2 g/dl (3.3-4.9); ALBUMIN/GLOBULIN RATIO 0.91; ALKALINE PHOSPHATASE 119 IU/L (42-121); ANION GAP 13 (8-16); ASPARTATE AMINO TRANSFERASE 23 IU/L (15-46); BILIRUBIN,INDIRECT 0.1 mg/dl (0-1.1); BILIRUBIN,TOTAL 0.1 mg/dl (0.2-1.3); BLOOD UREA NITROGEN 56 mg/dl (7-20); CARBON DIOXIDE 35 mmol/L (21-31); CHLORIDE 100 mmol/L (97-110); GLUCOSE 223 mg/dl (70-220); POTASSIUM 5.2 mmol/L (3.5-5.1); SODIUM 143 mmol/L (135-144); TOTAL PROTEIN 6.7 g/dl (6.1-8.1)
[2017-08-01] MEDS: INSULIN ASPART [NOVOLOG] 3 ML PEN SC ×7 (08:09→21:00)
[2017-08-01] MEDS: SALMETEROL/FLUTICASONE 250/50 INHA INH ×2 (08:10→20:46)
[2017-08-01] MEDS: NICOTINE (14 MG/24 HR) PATCH TRANSDERM (08:19)
[2017-08-01] MEDS: HEPARIN 5,000 UNIT/0.5 ML VIAL SC ×2 (08:20→20:53)
[2017-08-01] MEDS: NIFEdipine (XL) 90 MG TAB PO (08:26)
[2017-08-01] MEDS: GABAPENTIN 300 MG CAP PO ×3 (08:26→20:47)
[2017-08-01] MEDS: FERROUS SULFATE (EC) 325 MG TAB PO ×2 (08:27→20:46)
[2017-08-01] MEDS: LOSARTAN 50 MG TAB PO (08:27)
[2017-08-01] MEDS: THIAMINE 100 MG TAB PO (08:27)
[2017-08-01] MEDS: DOCUSATE SODIUM 100 MG CAP PO ×2 (08:27→20:46)
[2017-08-01] MEDS: ASPIRIN 81 MG TAB PO (08:27)
[2017-08-01] MEDS: BISACODYL 10 MG SUPP PR (11:50)
[2017-08-01] MEDS: ACETAMINOPHEN 325 MG TAB PO (18:27)
[2017-08-01] MEDS: TAMSULOSIN (SR) 0.4 MG CAP PO (20:47)
[2017-08-01] MEDS: INSULIN GLARGINE [LANtus] 3 ML PEN SC (20:52)
[2017-08-02 06:00] LABS: ADD MAN DIFF? NO
[2017-08-02 06:18] LABS: BASOPHIL # 0.1 10^3/ul (0.0-0.1); BASOPHILS % 0.7 % (0.0-2.0); EOSINOPHILS # 0.2 10^3/ul (0.0-0.5); EOSINOPHILS % 2.3 % (0.0-7.0); HEMATOCRIT 25.7 % (42.0-52.0); HEMOGLOBIN 7.9 g/dl (14.0-18.0); LYMPHOCYTES # 1.8 10^3/ul (0.8-2.9); LYMPHOCYTES % 25.7 % (15.0-51.0); MEAN CORPUSCULAR HGB CONC 30.7 g/dl (32.0-37.0); MEAN CORPUSCULAR VOLUME 87.7 fl (82.0-101.0); MEAN PLATELET VOLUME 9.8 fl (7.4-10.4); MONOCYTE # 0.7 10^3/ul (0.3-0.9); MONOCYTES % 10.6 % (0.0-11.0); NEUTROPHIL # 4.2 10^3/ul (1.6-7.5); NEUTROPHILS % 60.3 % (39.0-77.0); PLATELET COUNT 291 10^3/UL (140-415); RED BLOOD COUNT 2.93 10^6/ul (4.70-6.10); RED CELL DISTRIBUTION WIDTH 15.9 % (11.5-14.5)
[2017-08-02] MEDS: BUMETANIDE 1 MG INJ IV ×2 (06:51→18:05)
[2017-08-02 07:56] LABS: ALANINE AMINOTRANSFERASE 33 IU/L (13-69); ALBUMIN 3.1 g/dl (3.3-4.9); ALBUMIN/GLOBULIN RATIO 0.91; ALKALINE PHOSPHATASE 123 IU/L (42-121); ANION GAP 14 (8-16); ASPARTATE AMINO TRANSFERASE 21 IU/L (15-46); BILIRUBIN,INDIRECT 0.1 mg/dl (0-1.1); BILIRUBIN,TOTAL 0.1 mg/dl (0.2-1.3); BLOOD UREA NITROGEN 55 mg/dl (7-20); CALCIUM 8.9 mg/dl (8.4-10.2); CARBON DIOXIDE 32 mmol/L (21-31); CHLORIDE 105 mmol/L (97-110); CREATININE 1.13 mg/dl (0.61-1.24); GLUCOSE 85 mg/dl (70-220); MAGNESIUM 2.3 mg/dl (1.7-2.5); PHOSPHORUS 4.9 mg/dl (2.5-4.9); POTASSIUM 4.3 mmol/L (3.5-5.1); SODIUM 147 mmol/L (135-144); TOTAL PROTEIN 6.5 g/dl (6.1-8.1)
[2017-08-02] MEDS: INSULIN ASPART [NOVOLOG] 3 ML PEN SC ×7 (08:02→20:37)
[2017-08-02] MEDS: SALMETEROL/FLUTICASONE 250/50 INHA INH ×2 (08:03→20:28)
[2017-08-02] MEDS: HEPARIN 5,000 UNIT/0.5 ML VIAL SC ×2 (08:24→20:36)
[2017-08-02] MEDS: NICOTINE (14 MG/24 HR) PATCH TRANSDERM (08:24)
[2017-08-02] MEDS: DOCUSATE SODIUM 100 MG CAP PO ×2 (08:26→20:28)
[2017-08-02] MEDS: THIAMINE 100 MG TAB PO (08:26)
[2017-08-02] MEDS: ASPIRIN 81 MG TAB PO (08:26)
[2017-08-02] MEDS: FERROUS SULFATE (EC) 325 MG TAB PO ×2 (08:26→20:28)
[2017-08-02] MEDS: GABAPENTIN 300 MG CAP PO ×3 (08:27→20:28)
[2017-08-02] MEDS: LOSARTAN 50 MG TAB PO (08:27)
[2017-08-02] MEDS: NIFEdipine (XL) 90 MG TAB PO (08:28)
[2017-08-02] MEDS: BISACODYL 10 MG SUPP PR (11:16)
[2017-08-02] MEDS: TAMSULOSIN (SR) 0.4 MG CAP PO (20:32)
[2017-08-02] MEDS: INSULIN GLARGINE [LANtus] 3 ML PEN SC (20:36)
[2017-08-03] MEDS: ACCU-CHEK XX (02:00)
[2017-08-03] MEDS: BUMETANIDE 1 MG INJ IV (05:41)
[2017-08-03] MEDS: ACETAMINOPHEN 325 MG TAB PO (06:07)
[2017-08-03 06:26] LABS: ANION GAP 12 (8-16); BLOOD UREA NITROGEN 47 mg/dl (7-20); CALCIUM 9.1 mg/dl (8.4-10.2); CARBON DIOXIDE 36 mmol/L (21-31); CHLORIDE 103 mmol/L (97-110); GLUCOSE 179 mg/dl (70-220); MAGNESIUM 2.2 mg/dl (1.7-2.5); PHOSPHORUS 4.4 mg/dl (2.5-4.9); POTASSIUM 4.5 mmol/L (3.5-5.1); SODIUM 146 mmol/L (135-144)
[2017-08-03] MEDS: INSULIN ASPART [NOVOLOG] 3 ML PEN SC ×7 (08:08→20:55)
[2017-08-03] MEDS: THIAMINE 100 MG TAB PO (09:18)
[2017-08-03] MEDS: FERROUS SULFATE (EC) 325 MG TAB PO ×2 (09:18→20:49)
[2017-08-03] MEDS: DOCUSATE SODIUM 100 MG CAP PO ×2 (09:19→20:51)
[2017-08-03] MEDS: SALMETEROL/FLUTICASONE 250/50 INHA INH ×2 (09:19→20:52)
[2017-08-03] MEDS: GABAPENTIN 300 MG CAP PO ×3 (09:19→20:51)
[2017-08-03] MEDS: ASPIRIN 81 MG TAB PO (09:19)
[2017-08-03] MEDS: NIFEdipine (XL) 90 MG TAB PO (09:20)
[2017-08-03] MEDS: LOSARTAN 50 MG TAB PO (09:24)
[2017-08-03] MEDS: HEPARIN 5,000 UNIT/0.5 ML VIAL SC ×2 (09:26→20:56)
[2017-08-03] MEDS: NICOTINE (14 MG/24 HR) PATCH TRANSDERM (10:09)
[2017-08-03] MEDS: BISACODYL 10 MG SUPP PR (12:10)
[2017-08-03] MEDS: TAMSULOSIN (SR) 0.4 MG CAP PO (20:51)
[2017-08-03] MEDS: INSULIN GLARGINE [LANtus] 3 ML PEN SC (20:57)
[2017-08-03] MEDS: morphine LIQ (10 MG/5 ML) CUP PO (21:12)
[2017-08-04] MEDS: ACETAMINOPHEN 325 MG TAB PO ×3 (00:14→21:14)
[2017-08-04] MEDS: ACCU-CHEK XX (00:45)
[2017-08-04 05:49] LABS: ADD MAN DIFF? NO
[2017-08-04 05:56] LABS: WHITE BLOOD COUNT 7.2 10^3/ul (4.8-10.8)
[2017-08-04 05:56] LABS: BASOPHIL # 0.1 10^3/ul (0.0-0.1); BASOPHILS % 0.7 % (0.0-2.0); EOSINOPHILS # 0.2 10^3/ul (0.0-0.5); EOSINOPHILS % 2.7 % (0.0-7.0); HEMATOCRIT 28.1 % (42.0-52.0); HEMOGLOBIN 8.4 g/dl (14.0-18.0); LYMPHOCYTES # 1.8 10^3/ul (0.8-2.9); LYMPHOCYTES % 25.7 % (15.0-51.0); MEAN CORPUSCULAR HEMOGLOBIN 26.6 pg (29.0-33.0); MEAN CORPUSCULAR HGB CONC 29.9 g/dl (32.0-37.0); MEAN CORPUSCULAR VOLUME 88.9 fl (82.0-101.0); MEAN PLATELET VOLUME 9.7 fl (7.4-10.4); MONOCYTE # 0.7 10^3/ul (0.3-0.9); MONOCYTES % 10.3 % (0.0-11.0); NEUTROPHIL # 4.3 10^3/ul (1.6-7.5); NEUTROPHILS % 60.3 % (39.0-77.0); PLATELET COUNT 287 10^3/UL (140-415); RED BLOOD COUNT 3.16 10^6/ul (4.70-6.10); RED CELL DISTRIBUTION WIDTH 15.6 % (11.5-14.5)
[2017-08-04 06:23] LABS: ANION GAP 8 (8-16); BLOOD UREA NITROGEN 41 mg/dl (7-20); CARBON DIOXIDE 37 mmol/L (21-31); CHLORIDE 104 mmol/L (97-110); CREATININE 1.07 mg/dl (0.61-1.24); GLUCOSE 130 mg/dl (70-220); MAGNESIUM 2.3 mg/dl (1.7-2.5); PHOSPHORUS 4.2 mg/dl (2.5-4.9); POTASSIUM 4.4 mmol/L (3.5-5.1); SODIUM 145 mmol/L (135-144)
[2017-08-04] MEDS: INSULIN ASPART [NOVOLOG] 3 ML PEN SC ×7 (08:14→21:00)
[2017-08-04] MEDS: GABAPENTIN 300 MG CAP PO ×3 (09:11→21:16)
[2017-08-04] MEDS: THIAMINE 100 MG TAB PO (09:11)
[2017-08-04] MEDS: FERROUS SULFATE (EC) 325 MG TAB PO ×2 (09:11→21:14)
[2017-08-04] MEDS: NIFEdipine (XL) 90 MG TAB PO (09:12)
[2017-08-04] MEDS: ASPIRIN 81 MG TAB PO (09:12)
[2017-08-04] MEDS: LOSARTAN 50 MG TAB PO (09:13)
[2017-08-04] MEDS: DOCUSATE SODIUM 100 MG CAP PO ×2 (09:14→21:15)
[2017-08-04] MEDS: SALMETEROL/FLUTICASONE 250/50 INHA INH ×2 (09:14→21:14)
[2017-08-04] MEDS: NICOTINE (14 MG/24 HR) PATCH TRANSDERM (09:15)
[2017-08-04] MEDS: HEPARIN 5,000 UNIT/0.5 ML VIAL SC ×2 (09:21→21:22)
[2017-08-04] MEDS: DICLOFENAC SODIUM 1% GEL 100 GM TUBE TP ×3 (15:50→21:24)
[2017-08-04] MEDS: FUROSEMIDE 40 MG TAB PO (17:35)
[2017-08-04] MEDS: TAMSULOSIN (SR) 0.4 MG CAP PO (21:16)
[2017-08-04] MEDS: INSULIN GLARGINE [LANtus] 3 ML PEN SC (21:22)
[2017-08-05] MEDS: ACCU-CHEK XX (01:47)
[2017-08-05] MEDS: FUROSEMIDE 40 MG TAB PO ×2 (05:27→17:57)
[2017-08-05] MEDS: INSULIN ASPART [NOVOLOG] 3 ML PEN SC ×7 (09:01→21:00)
[2017-08-05] MEDS: HEPARIN 5,000 UNIT/0.5 ML VIAL SC ×2 (09:02→21:47)
[2017-08-05] MEDS: THIAMINE 100 MG TAB PO (09:05)
[2017-08-05] MEDS: ASPIRIN 81 MG TAB PO (09:05)
[2017-08-05] MEDS: FERROUS SULFATE (EC) 325 MG TAB PO ×2 (09:05→21:47)
[2017-08-05] MEDS: GABAPENTIN 300 MG CAP PO ×3 (09:05→21:46)
[2017-08-05] MEDS: DOCUSATE SODIUM 100 MG CAP PO ×2 (09:05→21:47)
[2017-08-05] MEDS: NIFEdipine (XL) 90 MG TAB PO (09:06)
[2017-08-05] MEDS: NICOTINE (14 MG/24 HR) PATCH TRANSDERM (09:07)
[2017-08-05] MEDS: LOSARTAN 50 MG TAB PO (09:07)
[2017-08-05] MEDS: DICLOFENAC SODIUM 1% GEL 100 GM TUBE TP ×4 (09:08→21:53)
[2017-08-05] MEDS: SALMETEROL/FLUTICASONE 250/50 INHA INH ×2 (09:08→21:45)
[2017-08-05] MEDS: BISACODYL (EC) 5 MG TAB PO (09:15)
[2017-08-05] MEDS: SPIRONOLACTONE 25 MG TAB PO ×2 (12:32→17:58)
[2017-08-05] MEDS: TAMSULOSIN (SR) 0.4 MG CAP PO (21:46)
[2017-08-05] MEDS: INSULIN GLARGINE [LANtus] 3 ML PEN SC (21:50)
[2017-08-06] MEDS: ACCU-CHEK XX (02:00)
[2017-08-06] MEDS: FUROSEMIDE 40 MG TAB PO ×2 (05:41→17:33)
[2017-08-06] MEDS: SPIRONOLACTONE 25 MG TAB PO ×2 (05:41→17:33)
[2017-08-06 06:29] LABS: ADD MAN DIFF? NO
[2017-08-06 06:31] LABS: WHITE BLOOD COUNT 7.3 10^3/ul (4.8-10.8)
[2017-08-06 06:31] LABS: BASOPHILS % 0.5 % (0.0-2.0); EOSINOPHILS # 0.2 10^3/ul (0.0-0.5); EOSINOPHILS % 2.5 % (0.0-7.0); HEMATOCRIT 28.4 % (42.0-52.0); HEMOGLOBIN 8.6 g/dl (14.0-18.0); LYMPHOCYTES # 1.7 10^3/ul (0.8-2.9); LYMPHOCYTES % 23.6 % (15.0-51.0); MEAN CORPUSCULAR HEMOGLOBIN 26.5 pg (29.0-33.0); MEAN CORPUSCULAR HGB CONC 30.3 g/dl (32.0-37.0); MEAN CORPUSCULAR VOLUME 87.7 fl (82.0-101.0); MONOCYTE # 0.8 10^3/ul (0.3-0.9); MONOCYTES % 11.1 % (0.0-11.0); NEUTROPHIL # 4.5 10^3/ul (1.6-7.5); NEUTROPHILS % 61.8 % (39.0-77.0); PLATELET COUNT 239 10^3/UL (140-415); RED BLOOD COUNT 3.24 10^6/ul (4.70-6.10); RED CELL DISTRIBUTION WIDTH 15.6 % (11.5-14.5)
[2017-08-06 06:59] LABS: ANION GAP 9 (8-16); BLOOD UREA NITROGEN 39 mg/dl (7-20); CALCIUM 9.1 mg/dl (8.4-10.2); CARBON DIOXIDE 35 mmol/L (21-31); CHLORIDE 105 mmol/L (97-110); CREATININE 1.13 mg/dl (0.61-1.24); GLUCOSE 115 mg/dl (70-220); MAGNESIUM 2.1 mg/dl (1.7-2.5); PHOSPHORUS 4.8 mg/dl (2.5-4.9); POTASSIUM 4.7 mmol/L (3.5-5.1); SODIUM 144 mmol/L (135-144)
[2017-08-06] MEDS: INSULIN ASPART [NOVOLOG] 3 ML PEN SC ×7 (08:12→20:41)
[2017-08-06] MEDS: SALMETEROL/FLUTICASONE 250/50 INHA INH ×2 (08:25→20:38)
[2017-08-06] MEDS: GABAPENTIN 300 MG CAP PO ×3 (08:25→20:38)
[2017-08-06] MEDS: DOCUSATE SODIUM 100 MG CAP PO ×2 (08:25→20:38)
[2017-08-06] MEDS: FERROUS SULFATE (EC) 325 MG TAB PO ×2 (08:25→20:39)
[2017-08-06] MEDS: THIAMINE 100 MG TAB PO (08:25)
[2017-08-06] MEDS: ASPIRIN 81 MG TAB PO (08:25)
[2017-08-06] MEDS: NICOTINE (14 MG/24 HR) PATCH TRANSDERM (08:26)
[2017-08-06] MEDS: NIFEdipine (XL) 90 MG TAB PO (08:27)
[2017-08-06] MEDS: HEPARIN 5,000 UNIT/0.5 ML VIAL SC ×2 (08:29→20:33)
[2017-08-06] MEDS: DICLOFENAC SODIUM 1% GEL 100 GM TUBE TP ×4 (09:44→20:38)
[2017-08-06] MEDS: LOSARTAN 50 MG TAB PO (09:45)
[2017-08-06] MEDS: ACETAMINOPHEN 325 MG TAB PO (20:38)
[2017-08-06] MEDS: TAMSULOSIN (SR) 0.4 MG CAP PO (20:39)
[2017-08-06] MEDS: INSULIN GLARGINE [LANtus] 3 ML PEN SC (20:46)
[2017-08-07] MEDS: ACCU-CHEK XX (01:40)
[2017-08-07] MEDS: FUROSEMIDE 40 MG TAB PO (06:23)
[2017-08-07] MEDS: SPIRONOLACTONE 25 MG TAB PO (06:23)
[2017-08-07] MEDS: INSULIN ASPART [NOVOLOG] 3 ML PEN SC ×4 (07:48→12:17)
[2017-08-07] MEDS: HEPARIN 5,000 UNIT/0.5 ML VIAL SC (08:21)
[2017-08-07] MEDS: LOSARTAN 50 MG TAB PO (08:23)
[2017-08-07] MEDS: THIAMINE 100 MG TAB PO (08:23)
[2017-08-07] MEDS: GABAPENTIN 300 MG CAP PO ×2 (08:23→12:51)
[2017-08-07] MEDS: FERROUS SULFATE (EC) 325 MG TAB PO (08:24)
[2017-08-07] MEDS: NIFEdipine (XL) 90 MG TAB PO (08:24)
[2017-08-07] MEDS: ASPIRIN 81 MG TAB PO (08:24)
[2017-08-07] MEDS: DOCUSATE SODIUM 100 MG CAP PO (08:24)
[2017-08-07] MEDS: DICLOFENAC SODIUM 1% GEL 100 GM TUBE TP ×2 (08:27→12:53)
[2017-08-07] MEDS: NICOTINE (14 MG/24 HR) PATCH TRANSDERM (08:27)
[2017-08-07 10:41] LABS: ANION GAP 11 (8-16); BLOOD UREA NITROGEN 35 mg/dl (7-20); CALCIUM 9.2 mg/dl (8.4-10.2); CARBON DIOXIDE 35 mmol/L (21-31); CHLORIDE 101 mmol/L (97-110); CREATININE 1.22 mg/dl (0.61-1.24); GLUCOSE 126 mg/dl (70-220); POTASSIUM 4.6 mmol/L (3.5-5.1); SODIUM 142 mmol/L (135-144)
[2017-08-07] MEDS: SALMETEROL/FLUTICASONE 250/50 INHA INH (11:35)
[2017-08-07] MEDS: BISACODYL (EC) 5 MG TAB PO (12:51)
[2017-08-07] MEDS: ACETAMINOPHEN 325 MG TAB PO (12:57)
== END 2017-08-07 17:50 | disposition home health service (06) | DRG 186 ==
LOC: PP2 07-11 04:48 → MS4 07-15 18:05 → MS2 07-28 18:22 → PP2 23:09 → MS4 07-17 01:51
PROVIDERS: Internal Medicine
PROC: 0W993ZZ Drainage of Right Pleural Cavity, Percutaneous Approach (ICD-10-PCS; principal; 2017-07-12)
PROC: 0W9930Z Drainage of Right Pleural Cavity with Drainage Device, Percutaneous Approach (ICD-10-PCS; 2017-07-12)
DX: J90 Pleural effusion, not elsewhere classified (principal); I50.33 Acute on chronic diastolic (congestive) heart failure; E87.0 Hyperosmolality and hypernatremia; J98.11 Atelectasis; J96.12 Chronic respiratory failure with hypercapnia; I42.9 Cardiomyopathy, unspecified; I11.0 Hypertensive heart disease with heart failure; E66.9 Obesity, unspecified; Z68.30 Body mass index [BMI] 30.0-30.9, adult; D64.9 Anemia, unspecified; D69.6 Thrombocytopenia, unspecified; J44.9 Chronic obstructive pulmonary disease, unspecified; E11.9 Type 2 diabetes mellitus without complications; G47.30 Sleep apnea, unspecified; N40.0 Benign prostatic hyperplasia without lower urinary tract symptoms; I27.20 Pulmonary hypertension, unspecified
CPT/HCPCS: 70450; 71045; 71046; 73030; 75989; 76705; 76942; 80048; 80053; 80069; 82550; 82553; 82962; 83540; 83735; 83880; 84100; 84443; 84484; 85025; 85610; 85730; 86704; 86709; 86803; 87081; 87340; 93306; 93970; 94660; 94664; 97110; 97116; 97162; 97530

== ENCOUNTER 2017-12-14 16:21 | Inpatient (IN) | payer BC ==
[2017-12-14] MEDS ORDERED: ONDANSETRON 4 MG INJ IV (18:30)
[2017-12-14] MEDS ORDERED: NACL 0.9% 3 ML SYG IV (18:30)
[2017-12-14 19:44] LABS: ADD MAN DIFF? NO
[2017-12-14 19:47] LABS: WHITE BLOOD COUNT 8.3 10^3/ul (4.8-10.8)
[2017-12-14 19:47] LABS: ABNORMAL IP MESSAGE 1; BASOPHIL # 0.1 10^3/ul (0.0-0.1); BASOPHILS % 0.6 % (0.0-2.0); EOSINOPHILS # 0.3 10^3/ul (0.0-0.5); EOSINOPHILS % 4.1 % (0.0-7.0); HEMATOCRIT 28.7 % (42.0-52.0); HEMOGLOBIN 8.3 g/dl (14.0-18.0); LYMPHOCYTES # 1.6 10^3/ul (0.8-2.9); LYMPHOCYTES % 18.9 % (15.0-51.0); MEAN CORPUSCULAR HEMOGLOBIN 24.4 pg (29.0-33.0); MEAN CORPUSCULAR HGB CONC 28.9 g/dl (32.0-37.0); MEAN CORPUSCULAR VOLUME 84.4 fl (82.0-101.0); MEAN PLATELET VOLUME 9.4 fl (7.4-10.4); MONOCYTE # 0.7 10^3/ul (0.3-0.9); MONOCYTES % 8.4 % (0.0-11.0); NEUTROPHIL # 5.6 10^3/ul (1.6-7.5); NEUTROPHILS % 67.6 % (39.0-77.0); PLATELET COUNT 291 10^3/UL (140-415); POSITIVE DIFF @See below; RED CELL DISTRIBUTION WIDTH 15.6 % (11.5-14.5)
[2017-12-14] MEDS: FUROSEMIDE 40 MG INJ IV ×2 (19:54→21:12)
[2017-12-14] MEDS: NIFEdipine 10 MG CAP PO ×2 (19:55→21:12)
[2017-12-14 20:11] LABS: ALANINE AMINOTRANSFERASE 24 IU/L (13-69); ALBUMIN 3.9 g/dl (3.3-4.9); ALBUMIN/GLOBULIN RATIO 0.86; ALKALINE PHOSPHATASE 129 IU/L (42-121); ANION GAP 15 (8-16); ASPARTATE AMINO TRANSFERASE 21 IU/L (15-46); BILIRUBIN,INDIRECT 0.5 mg/dl (0-1.1); BILIRUBIN,TOTAL 0.5 mg/dl (0.2-1.3); BLOOD UREA NITROGEN 24 mg/dl (7-20); CALCIUM 9.2 mg/dl (8.4-10.2); CARBON DIOXIDE 31 mmol/L (21-31); CHLORIDE 103 mmol/L (97-110); CREATININE 1.13 mg/dl (0.61-1.24); GLUCOSE 60 mg/dl (70-220); POTASSIUM 4.3 mmol/L (3.5-5.1); SODIUM 145 mmol/L (135-144); TOTAL PROTEIN 8.4 g/dl (6.1-8.1)
[2017-12-14 20:19] LABS: INR 1.18; PROTIME 15.2 Sec (11.9-14.9); PT RATIO 1.2
[2017-12-14 20:20] LABS: PARTIAL THROMBOPLASTIN TIME 38.2 Sec (25.0-35.0)
[2017-12-14 20:21] LABS: TROPONIN-I < 0.012 ng/ml (0.000-0.120)
[2017-12-14] MEDS ORDERED: DEXTROSE 50% 50 ML SYRINGE IV ×2 (21:00)
[2017-12-14] MEDS ORDERED: GLUCOSE GEL 15 GRAM TUBE PO ×2 (21:00)
[2017-12-14] MEDS ORDERED: GLUCOSE GEL 15 GRAM TUBE BUCCAL (21:00)
[2017-12-14] MEDS: INSULIN ASPART [NOVOLOG] 3 ML PEN SC (21:00)
[2017-12-14] MEDS ORDERED: GLUCAGON 1 MG INJ IM (21:00)
[2017-12-14] MEDS ORDERED: NON-FORMULARY/PATIENT OWN MED (Carvedilol* 6.25 MG) PO (21:00)
[2017-12-15] MEDS: ACCU-CHEK XX (02:00)
[2017-12-15] MEDS: ALBUTEROL HFA 8 GM INHALER INH ×4 (06:00→17:41)
[2017-12-15 07:15] LABS: ADD MAN DIFF? NO
[2017-12-15 07:22] LABS: WHITE BLOOD COUNT 7.9 10^3/ul (4.8-10.8)
[2017-12-15 07:22] LABS: BASOPHILS % 0.5 % (0.0-2.0); EOSINOPHILS # 0.3 10^3/ul (0.0-0.5); EOSINOPHILS % 3.4 % (0.0-7.0); HEMATOCRIT 27.9 % (42.0-52.0); HEMOGLOBIN 8.3 g/dl (14.0-18.0); LYMPHOCYTES # 1.1 10^3/ul (0.8-2.9); LYMPHOCYTES % 14.5 % (15.0-51.0); MEAN CORPUSCULAR HEMOGLOBIN 25.5 pg (29.0-33.0); MEAN CORPUSCULAR HGB CONC 29.7 g/dl (32.0-37.0); MEAN CORPUSCULAR VOLUME 85.8 fl (82.0-101.0); MEAN PLATELET VOLUME 9.2 fl (7.4-10.4); MONOCYTE # 0.6 10^3/ul (0.3-0.9); MONOCYTES % 7.5 % (0.0-11.0); NEUTROPHIL # 5.8 10^3/ul (1.6-7.5); NEUTROPHILS % 73.7 % (39.0-77.0); PLATELET COUNT 242 10^3/UL (140-415); RED BLOOD COUNT 3.25 10^6/ul (4.70-6.10); RED CELL DISTRIBUTION WIDTH 15.6 % (11.5-14.5)
[2017-12-15 07:35] LABS: HEMOGLOBIN A1C 6.8 % (0-5.9)
[2017-12-15] MEDS: INSULIN ASPART [NOVOLOG] 3 ML PEN SC ×7 (07:39→20:47)
[2017-12-15 07:54] LABS: ALANINE AMINOTRANSFERASE 17 IU/L (13-69); ALBUMIN 3.7 g/dl (3.3-4.9); ALKALINE PHOSPHATASE 115 IU/L (42-121); ANION GAP 13 (8-16); ASPARTATE AMINO TRANSFERASE 19 IU/L (15-46); BILIRUBIN,INDIRECT 0.5 mg/dl (0-1.1); BILIRUBIN,TOTAL 0.5 mg/dl (0.2-1.3); BLOOD UREA NITROGEN 24 mg/dl (7-20); CALCIUM 8.8 mg/dl (8.4-10.2); CARBON DIOXIDE 31 mmol/L (21-31); CHLORIDE 102 mmol/L (97-110); CREATININE 0.97 mg/dl (0.61-1.24); GLUCOSE 115 mg/dl (70-220); MAGNESIUM 1.8 mg/dl (1.7-2.5); PHOSPHORUS 4.7 mg/dl (2.5-4.9); POTASSIUM 4.3 mmol/L (3.5-5.1); SODIUM 142 mmol/L (135-144); TOTAL PROTEIN 7.8 g/dl (6.1-8.1)
[2017-12-15] MEDS: ENOXAPARIN 40 MG/0.4 ML SYG SC (08:41)
[2017-12-15] MEDS: DOCUSATE SODIUM 100 MG CAP PO (08:42)
[2017-12-15] MEDS: ASPIRIN 81 MG TAB PO (08:43)
[2017-12-15] MEDS: LOSARTAN 50 MG TAB PO (08:43)
[2017-12-15] MEDS: NIFEdipine (XL) 90 MG TAB PO (08:43)
[2017-12-15] MEDS ORDERED: FUROSEMIDE 100 MG INJ IV (10:30)
[2017-12-15] MEDS: FUROSEMIDE 40 MG INJ IV ×2 (10:46→17:48)
[2017-12-15] MEDS: NITROGLYCERIN (SL) 0.4 MG TAB SL (15:24)
[2017-12-15] MEDS: ACETAMINOPHEN 500 MG TAB PO ×2 (15:39→21:58)
[2017-12-15] MEDS: POLYETHYLENE GLYCOL 17 GM PACKET PO (17:44)
[2017-12-15] MEDS ORDERED: INSULIN GLARGINE [LANTus] (100 UNITS/ML) SYG SC (20:00)
[2017-12-15] MEDS: INSULIN GLARGINE [LANTus] (100 UNITS/ML) SYG SC (21:15)
[2017-12-16] MEDS: ALBUTEROL HFA 8 GM INHALER INH ×4 (00:04→18:29)
[2017-12-16] MEDS: ACCU-CHEK XX (01:51)
[2017-12-16] MEDS: FUROSEMIDE 40 MG INJ IV ×2 (06:54→18:28)
[2017-12-16] MEDS: INSULIN ASPART [NOVOLOG] 3 ML PEN SC ×7 (08:53→20:54)
[2017-12-16] MEDS: ASPIRIN 81 MG TAB PO (09:09)
[2017-12-16] MEDS: LOSARTAN 50 MG TAB PO (09:10)
[2017-12-16] MEDS: NIFEdipine (XL) 90 MG TAB PO (09:11)
[2017-12-16] MEDS: DOCUSATE SODIUM 100 MG CAP PO (09:11)
[2017-12-16] MEDS: ENOXAPARIN 40 MG/0.4 ML SYG SC (09:17)
[2017-12-16] MEDS: MAGNESIUM HYDROXIDE 30ML CUP PO (09:20)
[2017-12-16] MEDS: SENNA TAB PO ×2 (09:20→20:36)
[2017-12-16] MEDS: NA PHOSPHATE/BIPHOS 133 ML ENEMA PR (15:24)
[2017-12-16] MEDS: ACETAMINOPHEN 500 MG TAB PO (18:27)
[2017-12-16] MEDS: INSULIN GLARGINE [LANTus] (100 UNITS/ML) SYG SC (20:53)
[2017-12-17] MEDS: ACCU-CHEK XX (02:00)
[2017-12-17] MEDS: ALBUTEROL HFA 8 GM INHALER INH ×4 (02:20→18:07)
[2017-12-17] MEDS: FUROSEMIDE 40 MG INJ IV (05:19)
[2017-12-17 07:34] LABS: ADD MAN DIFF? NO
[2017-12-17 07:37] LABS: WHITE BLOOD COUNT 8.9 10^3/ul (4.8-10.8)
[2017-12-17 07:37] LABS: BASOPHILS % 0.4 % (0.0-2.0); EOSINOPHILS # 0.3 10^3/ul (0.0-0.5); EOSINOPHILS % 3.3 % (0.0-7.0); HEMATOCRIT 27.1 % (42.0-52.0); HEMOGLOBIN 8.1 g/dl (14.0-18.0); LYMPHOCYTES # 1.1 10^3/ul (0.8-2.9); LYMPHOCYTES % 12.7 % (15.0-51.0); MEAN CORPUSCULAR HEMOGLOBIN 24.9 pg (29.0-33.0); MEAN CORPUSCULAR HGB CONC 29.9 g/dl (32.0-37.0); MEAN CORPUSCULAR VOLUME 83.4 fl (82.0-101.0); MEAN PLATELET VOLUME 9.6 fl (7.4-10.4); MONOCYTE # 0.6 10^3/ul (0.3-0.9); MONOCYTES % 6.7 % (0.0-11.0); NEUTROPHIL # 6.8 10^3/ul (1.6-7.5); NEUTROPHILS % 76.3 % (39.0-77.0); PLATELET COUNT 287 10^3/UL (140-415); RED BLOOD COUNT 3.25 10^6/ul (4.70-6.10); RED CELL DISTRIBUTION WIDTH 15.5 % (11.5-14.5)
[2017-12-17] MEDS: INSULIN ASPART [NOVOLOG] 3 ML PEN SC ×7 (07:55→20:12)
[2017-12-17 08:12] LABS: ANION GAP 15 (8-16); BLOOD UREA NITROGEN 39 mg/dl (7-20); CALCIUM 9.3 mg/dl (8.4-10.2); CARBON DIOXIDE 37 mmol/L (21-31); CHLORIDE 96 mmol/L (97-110); CREATININE 1.13 mg/dl (0.61-1.24); GLUCOSE 122 mg/dl (70-220); MAGNESIUM 2.2 mg/dl (1.7-2.5); PHOSPHORUS 3.8 mg/dl (2.5-4.9); POTASSIUM 4.3 mmol/L (3.5-5.1); SODIUM 144 mmol/L (135-144)
[2017-12-17] MEDS: LOSARTAN 50 MG TAB PO (08:49)
[2017-12-17] MEDS: NIFEdipine (XL) 90 MG TAB PO (08:50)
[2017-12-17] MEDS: ASPIRIN 81 MG TAB PO (08:51)
[2017-12-17] MEDS: SENNA TAB PO ×2 (08:51→20:19)
[2017-12-17] MEDS: DOCUSATE SODIUM 100 MG CAP PO (08:51)
[2017-12-17] MEDS: ENOXAPARIN 40 MG/0.4 ML SYG SC (08:56)
[2017-12-17] MEDS: BUMETANIDE 1 MG INJ IV (18:08)
[2017-12-17] MEDS: INSULIN GLARGINE [LANTus] (100 UNITS/ML) SYG SC (20:16)
[2017-12-18] MEDS: ACCU-CHEK XX (02:00)
[2017-12-18] MEDS: ALBUTEROL HFA 8 GM INHALER INH ×4 (05:16→17:27)
[2017-12-18] MEDS: BUMETANIDE 1 MG INJ IV (05:17)
[2017-12-18 06:52] LABS: ADD MAN DIFF? NO
[2017-12-18 07:00] LABS: WHITE BLOOD COUNT 8.3 10^3/ul (4.8-10.8)
[2017-12-18 07:00] LABS: BASOPHILS % 0.5 % (0.0-2.0); EOSINOPHILS # 0.2 10^3/ul (0.0-0.5); EOSINOPHILS % 2.8 % (0.0-7.0); HEMATOCRIT 25.1 % (42.0-52.0); HEMOGLOBIN 7.6 g/dl (14.0-18.0); LYMPHOCYTES # 1.1 10^3/ul (0.8-2.9); LYMPHOCYTES % 13.2 % (15.0-51.0); MEAN CORPUSCULAR HEMOGLOBIN 25.2 pg (29.0-33.0); MEAN CORPUSCULAR HGB CONC 30.3 g/dl (32.0-37.0); MEAN CORPUSCULAR VOLUME 83.1 fl (82.0-101.0); MEAN PLATELET VOLUME 9.8 fl (7.4-10.4); MONOCYTE # 0.7 10^3/ul (0.3-0.9); MONOCYTES % 8.7 % (0.0-11.0); NEUTROPHIL # 6.2 10^3/ul (1.6-7.5); NEUTROPHILS % 74.6 % (39.0-77.0); PLATELET COUNT 256 10^3/UL (140-415); RED BLOOD COUNT 3.02 10^6/ul (4.70-6.10); RED CELL DISTRIBUTION WIDTH 15.8 % (11.5-14.5)
[2017-12-18 07:19] LABS: IRON 24 ug/dl (35-150)
[2017-12-18 07:25] LABS: ANION GAP 15 (8-16); BLOOD UREA NITROGEN 46 mg/dl (7-20); CARBON DIOXIDE 35 mmol/L (21-31); CHLORIDE 98 mmol/L (97-110); CREATININE 1.29 mg/dl (0.61-1.24); GLUCOSE 148 mg/dl (70-220); MAGNESIUM 2.4 mg/dl (1.7-2.5); PHOSPHORUS 4.2 mg/dl (2.5-4.9); POTASSIUM 4.6 mmol/L (3.5-5.1); SODIUM 143 mmol/L (135-144)
[2017-12-18 07:28] LABS: % IRON SATURATION 6 % SAT (22-52); TOTAL IRON BINDING CAPACITY 387 ug/dl (241-421)
[2017-12-18 07:55] LABS: FERRITIN 75.7 ng/ml (11.1-264.0)
[2017-12-18] MEDS: INSULIN ASPART [NOVOLOG] 3 ML PEN SC ×7 (07:55→21:24)
[2017-12-18 08:26] LABS: FOLATE 6.1 ng/ml (2.8-20.0)
[2017-12-18] MEDS: ASPIRIN 81 MG TAB PO (09:17)
[2017-12-18] MEDS: DOCUSATE SODIUM 100 MG CAP PO (09:17)
[2017-12-18] MEDS: NIFEdipine (XL) 90 MG TAB PO (09:18)
[2017-12-18] MEDS: SENNA TAB PO ×2 (09:18→21:17)
[2017-12-18] MEDS: LOSARTAN 50 MG TAB PO (09:18)
[2017-12-18] MEDS: ENOXAPARIN 40 MG/0.4 ML SYG SC (09:26)
[2017-12-18 11:03] LABS: B-TYPE NATRIURETIC PEPTIDE 2440 PG/ML (0-125)
[2017-12-18] MEDS: FLUTICASONE/VILANTEROL 100-25 INH (12:27)
[2017-12-18] MEDS: POLYETHYLENE GLYCOL 17 GM PACKET PO (12:33)
[2017-12-18] MEDS: ACETAMINOPHEN 500 MG TAB PO (16:31)
[2017-12-18] MEDS: INSULIN GLARGINE [LANTus] (100 UNITS/ML) SYG SC (21:24)
[2017-12-19] MEDS: ACCU-CHEK XX (02:00)
[2017-12-19] MEDS: ALBUTEROL HFA 8 GM INHALER INH ×3 (02:35→12:37)
[2017-12-19] MEDS: BISACODYL 10 MG SUPP PR ×2 (04:43→13:47)
[2017-12-19 06:21] LABS: ADD MAN DIFF? NO
[2017-12-19 06:24] LABS: BASOPHIL # 0.1 10^3/ul (0.0-0.1); BASOPHILS % 0.7 % (0.0-2.0); EOSINOPHILS # 0.3 10^3/ul (0.0-0.5); EOSINOPHILS % 2.5 % (0.0-7.0); HEMATOCRIT 27.3 % (42.0-52.0); HEMOGLOBIN 8.1 g/dl (14.0-18.0); LYMPHOCYTES # 1.8 10^3/ul (0.8-2.9); LYMPHOCYTES % 17.4 % (15.0-51.0); MEAN CORPUSCULAR HEMOGLOBIN 24.8 pg (29.0-33.0); MEAN CORPUSCULAR HGB CONC 29.7 g/dl (32.0-37.0); MEAN CORPUSCULAR VOLUME 83.5 fl (82.0-101.0); MEAN PLATELET VOLUME 9.9 fl (7.4-10.4); MONOCYTE # 0.9 10^3/ul (0.3-0.9); NEUTROPHIL # 7.2 10^3/ul (1.6-7.5); NEUTROPHILS % 69.9 % (39.0-77.0); PLATELET COUNT 307 10^3/UL (140-415); RED BLOOD COUNT 3.27 10^6/ul (4.70-6.10); RED CELL DISTRIBUTION WIDTH 15.8 % (11.5-14.5)
[2017-12-19 06:24] LABS: WHITE BLOOD COUNT 10.3 10^3/ul (4.8-10.8)
[2017-12-19 06:53] LABS: ANION GAP 15 (8-16); BLOOD UREA NITROGEN 45 mg/dl (7-20); CALCIUM 9.3 mg/dl (8.4-10.2); CARBON DIOXIDE 35 mmol/L (21-31); CHLORIDE 100 mmol/L (97-110); CREATININE 1.19 mg/dl (0.61-1.24); GLUCOSE 114 mg/dl (70-220); MAGNESIUM 2.8 mg/dl (1.7-2.5); PHOSPHORUS 3.7 mg/dl (2.5-4.9); POTASSIUM 4.7 mmol/L (3.5-5.1); SODIUM 145 mmol/L (135-144)
[2017-12-19] MEDS: SENNA TAB PO ×2 (08:30→20:25)
[2017-12-19] MEDS: ASPIRIN 81 MG TAB PO (08:30)
[2017-12-19] MEDS: DOCUSATE SODIUM 100 MG CAP PO (08:31)
[2017-12-19] MEDS: FUROSEMIDE 40 MG TAB PO (08:31)
[2017-12-19] MEDS: SPIRONOLACTONE 25 MG TAB PO (08:31)
[2017-12-19] MEDS: NIFEdipine (XL) 90 MG TAB PO (08:32)
[2017-12-19] MEDS: LOSARTAN 50 MG TAB PO (08:32)
[2017-12-19] MEDS: FLUTICASONE/VILANTEROL 100-25 INH (08:32)
[2017-12-19] MEDS: ENOXAPARIN 40 MG/0.4 ML SYG SC (08:38)
[2017-12-19] MEDS: INSULIN ASPART [NOVOLOG] 3 ML PEN SC ×7 (08:49→20:27)
[2017-12-19] MEDS: MAGNESIUM OXIDE 400 MG TAB PO (11:18)
[2017-12-19] MEDS: ACETAMINOPHEN 500 MG TAB PO (11:18)
[2017-12-19] MEDS: NITROGLYCERIN (SL) 0.4 MG TAB SL (14:27)
[2017-12-19] MEDS: ALBUTEROL/IPRATROPIUM (NEB) 3 ML AMP HHN (15:39)
[2017-12-19] MEDS: BUMETANIDE 1 MG INJ IV (15:45)
[2017-12-19 15:54] LABS: TROPONIN-I < 0.012 ng/ml (0.000-0.120)
[2017-12-19] MEDS: BUMETANIDE 25 MG in DEXTROSE 5% 150 ML IV (17:18)
[2017-12-19] MEDS: INSULIN GLARGINE [LANTus] (100 UNITS/ML) SYG SC (21:04)
[2017-12-19 21:40] LABS: AADO2 Arterial 573.3 mmHg (7.0-24.0); Arterial Base Excess 7.8 mmol/L (-3.0-3); Arterial Blood Gas Oxygen Sat 96.6 mmHG (95.0-98.0); Arterial COHb 0.2 % (0.0-3.0); Arterial Fraction of Oxyhgb 96.1 % (93.0-99.0); Arterial HCO3 33.1 mmol/L (22.0-26.0); Arterial MetHb 0.3 % (0.0-1.5); Arterial Total Hemglobin 8.2 g/dl (12.0-18.0); Arterial pCO2 51.2 mmhg (35-45); MODE MASK - NRB; Site Right Brachial
[2017-12-20] MEDS: ACCU-CHEK XX (02:00)
[2017-12-20 05:08] LABS: ADD MAN DIFF? NO
[2017-12-20 05:27] LABS: WHITE BLOOD COUNT 8.1 10^3/ul (4.8-10.8)
[2017-12-20 05:27] LABS: BASOPHILS % 0.5 % (0.0-2.0); EOSINOPHILS # 0.3 10^3/ul (0.0-0.5); EOSINOPHILS % 3.1 % (0.0-7.0); HEMATOCRIT 24.8 % (42.0-52.0); HEMOGLOBIN 7.5 g/dl (14.0-18.0); LYMPHOCYTES # 1.6 10^3/ul (0.8-2.9); LYMPHOCYTES % 19.5 % (15.0-51.0); MEAN CORPUSCULAR HGB CONC 30.2 g/dl (32.0-37.0); MEAN CORPUSCULAR VOLUME 82.7 fl (82.0-101.0); MEAN PLATELET VOLUME 9.6 fl (7.4-10.4); MONOCYTE # 0.6 10^3/ul (0.3-0.9); MONOCYTES % 7.3 % (0.0-11.0); NEUTROPHIL # 5.6 10^3/ul (1.6-7.5); NEUTROPHILS % 69.4 % (39.0-77.0); PLATELET COUNT 259 10^3/UL (140-415); RED CELL DISTRIBUTION WIDTH 15.7 % (11.5-14.5)
[2017-12-20] MEDS: PANTOPRAZOLE 40 MG INJ IV (06:06)
[2017-12-20 06:10] LABS: ANION GAP 14 (8-16); BLOOD UREA NITROGEN 49 mg/dl (7-20); CALCIUM 9.2 mg/dl (8.4-10.2); CARBON DIOXIDE 34 mmol/L (21-31); CHLORIDE 98 mmol/L (97-110); CREATININE 1.42 mg/dl (0.61-1.24); GLUCOSE 103 mg/dl (70-220); MAGNESIUM 2.5 mg/dl (1.7-2.5); PHOSPHORUS 4.4 mg/dl (2.5-4.9); POTASSIUM 4.3 mmol/L (3.5-5.1); SODIUM 142 mmol/L (135-144)
[2017-12-20 08:01] LABS: TROPONIN-I < 0.012 ng/ml (0.000-0.120)
[2017-12-20] MEDS: ALBUTEROL/IPRATROPIUM (NEB) 3 ML AMP HHN ×2 (08:17)
[2017-12-20] MEDS: INSULIN ASPART [NOVOLOG] 3 ML PEN SC ×4 (09:00→20:26)
[2017-12-20] MEDS: HEPARIN 5,000 UNIT/0.5 ML VIAL SC (10:00)
[2017-12-20] MEDS: FLUTICASONE/VILANTEROL 100-25 INH (10:04)
[2017-12-20] MEDS: ACETAMINOPHEN 500 MG TAB PO (10:05)
[2017-12-20] MEDS: ASPIRIN 81 MG TAB PO (10:07)
[2017-12-20] MEDS: SPIRONOLACTONE 25 MG TAB PO (10:07)
[2017-12-20] MEDS: NITROGLYCERIN 0.1 MG/HR PATCH TRANSDERM (10:07)
[2017-12-20] MEDS: NIFEdipine (XL) 90 MG TAB PO (10:08)
[2017-12-20] MEDS: LOSARTAN 50 MG TAB PO (10:08)
[2017-12-20] MEDS: SENNA TAB PO ×2 (10:09→20:32)
[2017-12-20] MEDS: DOCUSATE SODIUM 100 MG CAP PO (10:09)
[2017-12-20 12:13] LABS: HEMATOCRIT 26.3 % (42.0-52.0); HEMOGLOBIN 7.9 g/dl (14.0-18.0)
[2017-12-20] MEDS: BUMETANIDE 25 MG in DEXTROSE 5% 150 ML IV (16:41)
[2017-12-20] MEDS: INSULIN GLARGINE [LANTus] (100 UNITS/ML) SYG SC (20:26)
[2017-12-21] MEDS: ACETAMINOPHEN 500 MG TAB PO (01:46)
[2017-12-21] MEDS: ACCU-CHEK XX (02:00)
[2017-12-21] MEDS: GUAIFENESIN/CODEINE 5ML CUP PO (05:17)
[2017-12-21 05:41] LABS: ADD MAN DIFF? NO
[2017-12-21] MEDS: PANTOPRAZOLE 40 MG INJ IV (05:45)
[2017-12-21 05:54] LABS: WHITE BLOOD COUNT 7.2 10^3/ul (4.8-10.8)
[2017-12-21 05:54] LABS: BASOPHILS % 0.6 % (0.0-2.0); EOSINOPHILS # 0.3 10^3/ul (0.0-0.5); EOSINOPHILS % 3.6 % (0.0-7.0); HEMATOCRIT 25.3 % (42.0-52.0); HEMOGLOBIN 7.7 g/dl (14.0-18.0); LYMPHOCYTES # 1.4 10^3/ul (0.8-2.9); LYMPHOCYTES % 18.7 % (15.0-51.0); MEAN CORPUSCULAR HEMOGLOBIN 25.2 pg (29.0-33.0); MEAN CORPUSCULAR HGB CONC 30.4 g/dl (32.0-37.0); MEAN CORPUSCULAR VOLUME 82.7 fl (82.0-101.0); MEAN PLATELET VOLUME 9.6 fl (7.4-10.4); MONOCYTE # 0.6 10^3/ul (0.3-0.9); MONOCYTES % 8.7 % (0.0-11.0); NEUTROPHIL # 4.9 10^3/ul (1.6-7.5); NEUTROPHILS % 67.7 % (39.0-77.0); PLATELET COUNT 280 10^3/UL (140-415); RED BLOOD COUNT 3.06 10^6/ul (4.70-6.10); RED CELL DISTRIBUTION WIDTH 15.4 % (11.5-14.5)
[2017-12-21 06:50] LABS: ANION GAP 15 (8-16); BLOOD UREA NITROGEN 48 mg/dl (7-20); CALCIUM 9.3 mg/dl (8.4-10.2); CARBON DIOXIDE 37 mmol/L (21-31); CHLORIDE 93 mmol/L (97-110); CREATININE 1.44 mg/dl (0.61-1.24); GLUCOSE 179 mg/dl (70-220); PHOSPHORUS 4.5 mg/dl (2.5-4.9); POTASSIUM 3.9 mmol/L (3.5-5.1); SODIUM 141 mmol/L (135-144)
[2017-12-21] MEDS: INSULIN ASPART [NOVOLOG] 3 ML PEN SC ×4 (08:25→21:00)
[2017-12-21] MEDS: FLUTICASONE/VILANTEROL 100-25 INH (08:28)
[2017-12-21] MEDS: DOCUSATE SODIUM 100 MG CAP PO (08:28)
[2017-12-21] MEDS: NIFEdipine (XL) 90 MG TAB PO (08:29)
[2017-12-21] MEDS: SENNA TAB PO ×2 (08:29→21:02)
[2017-12-21] MEDS: NITROGLYCERIN 0.1 MG/HR PATCH TRANSDERM (08:29)
[2017-12-21] MEDS: SPIRONOLACTONE 25 MG TAB PO (08:29)
[2017-12-21] MEDS: BISACODYL 10 MG SUPP PR (08:29)
[2017-12-21] MEDS: ASPIRIN 81 MG TAB PO (08:30)
[2017-12-21] MEDS: LOSARTAN 50 MG TAB PO (08:30)
[2017-12-21 11:21] LABS: Arterial Base Excess 12.2 mmol/L (-3.0-3); Arterial Blood Gas Oxygen Sat 88.8 mmHG (95.0-98.0); Arterial COHb 0.3 % (0.0-3.0); Arterial Fraction of Oxyhgb 88.4 % (93.0-99.0); Arterial HCO3 37.5 mmol/L (22.0-26.0); Arterial MetHb 0.2 % (0.0-1.5); Arterial Total Hemglobin 8.4 g/dl (12.0-18.0); Arterial pCO2 54.4 mmhg (35-45); MODE HFNC; Site Right Brachial
[2017-12-21] MEDS: FUROSEMIDE 40 MG INJ IV (17:16)
[2017-12-21] MEDS: INSULIN GLARGINE [LANTus] (100 UNITS/ML) SYG SC (21:02)
[2017-12-22] MEDS: ACCU-CHEK XX (02:00)
[2017-12-22 05:25] LABS: ADD MAN DIFF? NO
[2017-12-22] MEDS: PANTOPRAZOLE 40 MG INJ IV (05:27)
[2017-12-22] MEDS: FUROSEMIDE 40 MG INJ IV (05:27)
[2017-12-22 05:28] LABS: WHITE BLOOD COUNT 7.4 10^3/ul (4.8-10.8)
[2017-12-22 05:28] LABS: BASOPHILS % 0.5 % (0.0-2.0); EOSINOPHILS # 0.3 10^3/ul (0.0-0.5); EOSINOPHILS % 3.7 % (0.0-7.0); HEMATOCRIT 24.1 % (42.0-52.0); HEMOGLOBIN 7.2 g/dl (14.0-18.0); LYMPHOCYTES # 1.4 10^3/ul (0.8-2.9); LYMPHOCYTES % 19.4 % (15.0-51.0); MEAN CORPUSCULAR HEMOGLOBIN 24.5 pg (29.0-33.0); MEAN CORPUSCULAR HGB CONC 29.9 g/dl (32.0-37.0); MEAN PLATELET VOLUME 9.3 fl (7.4-10.4); MONOCYTE # 0.7 10^3/ul (0.3-0.9); MONOCYTES % 9.4 % (0.0-11.0); NEUTROPHIL # 4.9 10^3/ul (1.6-7.5); NEUTROPHILS % 66.6 % (39.0-77.0); PLATELET COUNT 247 10^3/UL (140-415); RED BLOOD COUNT 2.94 10^6/ul (4.70-6.10); RED CELL DISTRIBUTION WIDTH 15.3 % (11.5-14.5)
[2017-12-22 06:30] LABS: ANION GAP 14 (8-16); BLOOD UREA NITROGEN 51 mg/dl (7-20); CALCIUM 8.8 mg/dl (8.4-10.2); CARBON DIOXIDE 37 mmol/L (21-31); CHLORIDE 92 mmol/L (97-110); CREATININE 1.66 mg/dl (0.61-1.24); GLUCOSE 182 mg/dl (70-220); SODIUM 139 mmol/L (135-144)
[2017-12-22 07:53] LABS: B-TYPE NATRIURETIC PEPTIDE 2020 PG/ML (0-125)
[2017-12-22] MEDS: INSULIN ASPART [NOVOLOG] 3 ML PEN SC ×5 (08:00→20:49)
[2017-12-22] MEDS: NIFEdipine (XL) 90 MG TAB PO (09:58)
[2017-12-22] MEDS: FLUTICASONE/VILANTEROL 100-25 INH (09:59)
[2017-12-22] MEDS: LOSARTAN 50 MG TAB PO (09:59)
[2017-12-22] MEDS: SPIRONOLACTONE 25 MG TAB PO (09:59)
[2017-12-22] MEDS: ISOSORBIDE MONONITRATE(SR)30 MG TAB PO (09:59)
[2017-12-22] MEDS: SENNA TAB PO ×2 (09:59→20:39)
[2017-12-22] MEDS: DOCUSATE SODIUM 100 MG CAP PO (09:59)
[2017-12-22] MEDS: ASPIRIN 81 MG TAB PO (09:59)
[2017-12-22 14:27] LABS: IMMEDIATE SPIN CROSSMATCH 1 1
[2017-12-22] MEDS: SOD CHLORIDE 0.9% 250 ML IV* (14:59)
[2017-12-22] MEDS: ALBUTEROL/IPRATROPIUM (NEB) 3 ML AMP HHN (17:02)
[2017-12-22] MEDS: POLYETHYLENE GLYCOL 17 GM PACKET PO (18:50)
[2017-12-22] MEDS: INSULIN GLARGINE [LANTus] (100 UNITS/ML) SYG SC (20:59)
[2017-12-23] MEDS: ACCU-CHEK XX (01:20)
[2017-12-23 05:43] LABS: ADD MAN DIFF? NO
[2017-12-23 05:49] LABS: BASOPHILS % 0.5 % (0.0-2.0); EOSINOPHILS # 0.4 10^3/ul (0.0-0.5); EOSINOPHILS % 4.5 % (0.0-7.0); HEMATOCRIT 26.1 % (42.0-52.0); LYMPHOCYTES # 1.3 10^3/ul (0.8-2.9); MEAN CORPUSCULAR HEMOGLOBIN 25.2 pg (29.0-33.0); MEAN CORPUSCULAR HGB CONC 30.7 g/dl (32.0-37.0); MEAN CORPUSCULAR VOLUME 82.3 fl (82.0-101.0); MEAN PLATELET VOLUME 9.9 fl (7.4-10.4); MONOCYTE # 0.7 10^3/ul (0.3-0.9); MONOCYTES % 8.3 % (0.0-11.0); NEUTROPHIL # 5.7 10^3/ul (1.6-7.5); NEUTROPHILS % 70.3 % (39.0-77.0); PLATELET COUNT 241 10^3/UL (140-415); RED BLOOD COUNT 3.17 10^6/ul (4.70-6.10); RED CELL DISTRIBUTION WIDTH 15.3 % (11.5-14.5)
[2017-12-23] MEDS: PANTOPRAZOLE 40 MG INJ IV (05:49)
[2017-12-23 06:12] LABS: ANION GAP 12 (8-16); BLOOD UREA NITROGEN 59 mg/dl (7-20); CALCIUM 8.8 mg/dl (8.4-10.2); CARBON DIOXIDE 37 mmol/L (21-31); CHLORIDE 94 mmol/L (97-110); CREATININE 1.94 mg/dl (0.61-1.24); GLUCOSE 186 mg/dl (70-220); POTASSIUM 4.4 mmol/L (3.5-5.1); SODIUM 139 mmol/L (135-144)
[2017-12-23] MEDS: INSULIN ASPART [NOVOLOG] 3 ML PEN SC ×5 (07:31→21:00)
[2017-12-23] MEDS: DOCUSATE SODIUM 100 MG CAP PO (08:50)
[2017-12-23] MEDS: NIFEdipine (XL) 90 MG TAB PO (08:50)
[2017-12-23] MEDS: SENNA TAB PO ×2 (08:50→21:14)
[2017-12-23] MEDS: FLUTICASONE/VILANTEROL 100-25 INH (08:50)
[2017-12-23] MEDS: ASPIRIN 81 MG TAB PO (08:51)
[2017-12-23] MEDS: SPIRONOLACTONE 25 MG TAB PO (08:51)
[2017-12-23] MEDS: ISOSORBIDE MONONITRATE(SR)30 MG TAB PO (08:51)
[2017-12-23] MEDS: LOSARTAN 50 MG TAB PO (08:51)
[2017-12-23] MEDS: FERROUS SULFATE (EC) 325 MG TAB PO ×2 (11:38→21:14)
[2017-12-23] MEDS: FUROSEMIDE 40 MG TAB PO (17:42)
[2017-12-23] MEDS: POLYETHYLENE GLYCOL 17 GM PACKET PO (17:50)
[2017-12-23] MEDS: ACETAMINOPHEN 500 MG TAB PO (18:07)
[2017-12-23 20:00] LABS: HAAIG REFLEX REFLEX FILED
[2017-12-23 20:10] LABS: IRON 47 ug/dl (35-150)
[2017-12-23 20:20] LABS: % IRON SATURATION 13 % SAT (22-52); TOTAL IRON BINDING CAPACITY 373 ug/dl (241-421)
[2017-12-23 20:42] LABS: HEPATITIS B SURFACE ANTIGEN NEGATIVE (NEGATIVE)
[2017-12-23 21:00] LABS: HEPATITIS B CORE ANTIBODY NEGATIVE (NEGATIVE); HEPATITIS C VIRAL ANTIBODY NEGATIVE (NEGATIVE)
[2017-12-23] MEDS: INSULIN GLARGINE [LANTus] (100 UNITS/ML) SYG SC (21:26)
[2017-12-24] MEDS: ACCU-CHEK XX (02:00)
[2017-12-24 05:42] LABS: ADD MAN DIFF? NO
[2017-12-24 05:51] LABS: BASOPHILS % 0.4 % (0.0-2.0); EOSINOPHILS # 0.3 10^3/ul (0.0-0.5); EOSINOPHILS % 2.6 % (0.0-7.0); HEMATOCRIT 26.9 % (42.0-52.0); HEMOGLOBIN 8.2 g/dl (14.0-18.0); LYMPHOCYTES # 1.1 10^3/ul (0.8-2.9); LYMPHOCYTES % 9.8 % (15.0-51.0); MEAN CORPUSCULAR HEMOGLOBIN 24.9 pg (29.0-33.0); MEAN CORPUSCULAR HGB CONC 30.5 g/dl (32.0-37.0); MEAN CORPUSCULAR VOLUME 81.8 fl (82.0-101.0); MEAN PLATELET VOLUME 9.3 fl (7.4-10.4); MONOCYTE # 0.9 10^3/ul (0.3-0.9); MONOCYTES % 8.2 % (0.0-11.0); NEUTROPHIL # 8.7 10^3/ul (1.6-7.5); NEUTROPHILS % 78.5 % (39.0-77.0); PLATELET COUNT 219 10^3/UL (140-415); RED BLOOD COUNT 3.29 10^6/ul (4.70-6.10); RED CELL DISTRIBUTION WIDTH 15.5 % (11.5-14.5)
[2017-12-24] MEDS: PANTOPRAZOLE 40 MG INJ IV (06:01)
[2017-12-24 06:18] LABS: ANION GAP 15 (8-16); BLOOD UREA NITROGEN 61 mg/dl (7-20); CARBON DIOXIDE 34 mmol/L (21-31); CHLORIDE 93 mmol/L (97-110); CREATININE 1.56 mg/dl (0.61-1.24); GLUCOSE 237 mg/dl (70-220); POTASSIUM 3.9 mmol/L (3.5-5.1); SODIUM 138 mmol/L (135-144)
[2017-12-24] MEDS: FUROSEMIDE 40 MG TAB PO ×2 (06:33→16:48)
[2017-12-24] MEDS: INSULIN ASPART [NOVOLOG] 3 ML PEN SC ×7 (07:38→21:00)
[2017-12-24] MEDS: METOLAZONE 2.5 MG TAB PO (08:45)
[2017-12-24] MEDS: NIFEdipine (XL) 90 MG TAB PO (08:45)
[2017-12-24] MEDS: SPIRONOLACTONE 25 MG TAB PO (08:45)
[2017-12-24] MEDS: ASPIRIN 81 MG TAB PO (08:45)
[2017-12-24] MEDS: DOCUSATE SODIUM 100 MG CAP PO (08:46)
[2017-12-24] MEDS: FERROUS SULFATE (EC) 325 MG TAB PO ×2 (08:46→21:12)
[2017-12-24] MEDS: LOSARTAN 50 MG TAB PO (08:46)
[2017-12-24] MEDS: SENNA TAB PO ×2 (08:46→21:12)
[2017-12-24] MEDS: ISOSORBIDE MONONITRATE(SR)30 MG TAB PO (08:46)
[2017-12-24] MEDS: FLUTICASONE/VILANTEROL 100-25 INH (08:47)
[2017-12-24 18:29] LABS: ADD UMIC YES; UR ASCORBIC ACID NEGATIVE (NEGATIVE); UR BACTERIA FEW /HPF (NONE SEEN); UR BILIRUBIN (Dip) NEGATIVE (NEGATIVE); UR BLOOD (Dip) 2+ mg/dL (NEGATIVE); UR CLARITY CLEAR (CLEAR); UR COLOR YELLOW (YELLOW); UR GLUCOSE (Dip) NEGATIVE (NEGATIVE); UR KETONES (Dip) NEGATIVE (NEGATIVE); UR LEUKOCYTE ESTERASE (Dip) NEGATIVE Leu/ul (NEGATIVE); UR NITRITE (Dip) NEGATIVE (NEGATIVE); UR RBC 5 /HPF (0-5); UR SPECIFIC GRAVITY (Dip) 1.011 (1.003-1.030); UR TOTAL PROTEIN (Dip) NEGATIVE (NEGATIVE); UR UROBILINOGEN (Dip) NEGATIVE (NEGATIVE); UR WBC 5 /HPF (0-5)
[2017-12-24 18:54] LABS: CREATININE,URINE RANDOM 70.95 mg/dl (20-370); PROTEIN/CREAT RATIO 0.29 RATIO
[2017-12-24 18:56] LABS: CREATININE,URINE RANDOM 71.72 mg/dl (20-370)
[2017-12-24 18:56] LABS: SODIUM,URINE RANDOM 15 mmol/L (30-90)
[2017-12-24] MEDS ORDERED: LIDOCAINE 1% (MDV) 20 ML INJ (20:47)
[2017-12-24] MEDS: INSULIN GLARGINE [LANTus] (100 UNITS/ML) SYG SC (21:21)
[2017-12-25] MEDS: ACCU-CHEK XX (02:00)
[2017-12-25 03:22] LABS: PROTEIN, TOTAL 7.9 g/dL (6.1-8.1)
[2017-12-25] MEDS: PANTOPRAZOLE 40 MG INJ IV (05:53)
[2017-12-25] MEDS: FUROSEMIDE 40 MG TAB PO (05:54)
[2017-12-25 06:04] LABS: ADD MAN DIFF? NO
[2017-12-25 06:09] LABS: WHITE BLOOD COUNT 8.9 10^3/ul (4.8-10.8)
[2017-12-25 06:09] LABS: BASOPHILS % 0.5 % (0.0-2.0); EOSINOPHILS # 0.3 10^3/ul (0.0-0.5); EOSINOPHILS % 3.7 % (0.0-7.0); HEMATOCRIT 26.1 % (42.0-52.0); HEMOGLOBIN 7.9 g/dl (14.0-18.0); LYMPHOCYTES # 1.5 10^3/ul (0.8-2.9); LYMPHOCYTES % 16.9 % (15.0-51.0); MEAN CORPUSCULAR HEMOGLOBIN 24.9 pg (29.0-33.0); MEAN CORPUSCULAR HGB CONC 30.3 g/dl (32.0-37.0); MEAN CORPUSCULAR VOLUME 82.3 fl (82.0-101.0); MEAN PLATELET VOLUME 9.8 fl (7.4-10.4); MONOCYTE # 0.9 10^3/ul (0.3-0.9); MONOCYTES % 9.8 % (0.0-11.0); NEUTROPHIL # 6.1 10^3/ul (1.6-7.5); NEUTROPHILS % 68.6 % (39.0-77.0); PLATELET COUNT 238 10^3/UL (140-415); RED BLOOD COUNT 3.17 10^6/ul (4.70-6.10); RED CELL DISTRIBUTION WIDTH 15.5 % (11.5-14.5)
[2017-12-25 06:35] LABS: ANION GAP 13 (8-16); BLOOD UREA NITROGEN 61 mg/dl (7-20); CARBON DIOXIDE 35 mmol/L (21-31); CHLORIDE 95 mmol/L (97-110); CREATININE 1.67 mg/dl (0.61-1.24); GLUCOSE 147 mg/dl (70-220); POTASSIUM 4.2 mmol/L (3.5-5.1); SODIUM 139 mmol/L (135-144)
[2017-12-25] MEDS: INSULIN ASPART [NOVOLOG] 3 ML PEN SC ×4 (08:01→12:12)
[2017-12-25] MEDS: ASPIRIN 81 MG TAB PO (08:41)
[2017-12-25] MEDS: SENNA TAB PO (08:41)
[2017-12-25] MEDS: ISOSORBIDE MONONITRATE(SR)30 MG TAB PO (08:41)
[2017-12-25] MEDS: SPIRONOLACTONE 25 MG TAB PO (08:42)
[2017-12-25] MEDS: DOCUSATE SODIUM 100 MG CAP PO (08:42)
[2017-12-25] MEDS: NIFEdipine (XL) 90 MG TAB PO (08:42)
[2017-12-25] MEDS: FERROUS SULFATE (EC) 325 MG TAB PO (08:42)
[2017-12-25] MEDS: FLUTICASONE/VILANTEROL 100-25 INH (08:43)
[2017-12-25] MEDS: LOSARTAN 50 MG TAB PO (08:43)
[2017-12-25] MEDS: METOLAZONE 2.5 MG TAB PO (08:43)
[2017-12-25 10:56] LABS: ALBUMIN 3.5 g/dL (3.8-4.8); ALPHA-1-GLOBULINS 0.4 g/dL (0.2-0.3); ALPHA-2-GLOBULINS 0.9 g/dL (0.5-0.9); BETA 2 GLOBULINS 0.6 g/dL (0.2-0.5); BETA GLOBULINS 0.6 g/dL (0.4-0.6); GAMMA GLOBULINS 1.8 g/dL (0.8-1.7)
[2017-12-25 13:56] LABS: ANA SCREEN NEGATIVE (NEGATIVE)
[2017-12-27 12:36] LABS: CREATININE, RANDOM URINE 67 mg/dL (20-320); PROTEIN/CREATININE RATIO 239 mg/g creat (22-128)
[2017-12-28 19:21] LABS: PTH CALCIUM 8.9 mg/dL (8.6-10.3)
[2017-12-29 11:46] LABS: PTH INTACT 114 pg/mL (14-64)
== END 2017-12-25 13:33 | disposition home health service (06) | DRG 291 ==
LOC: ICU 12-19 16:17 → 6WM 12-22 07:57 → TEL 16:21
PROC: 0JJTXZZ Inspection of Trunk Subcutaneous Tissue and Fascia, External Approach (ICD-10-PCS; 2017-12-17)
PROC: 30233N1 Transfusion of Nonautologous Red Blood Cells into Peripheral Vein, Percutaneous Approach (ICD-10-PCS; principal; 2017-12-22)
DX: I13.0 Hypertensive heart and chronic kidney disease with heart failure and stage 1 through stage 4 chronic kidney disease, or unspecified chronic kidney disease (principal); J96.21 Acute and chronic respiratory failure with hypoxia; I50.33 Acute on chronic diastolic (congestive) heart failure; J96.22 Acute and chronic respiratory failure with hypercapnia; J90 Pleural effusion, not elsewhere classified; Z68.41 Body mass index [BMI] 40.0-44.9, adult; N17.9 Acute kidney failure, unspecified; D63.8 Anemia in other chronic diseases classified elsewhere; E11.21 Type 2 diabetes mellitus with diabetic nephropathy; E87.70 Fluid overload, unspecified; E66.9 Obesity, unspecified; F10.20 Alcohol dependence, uncomplicated; G47.33 Obstructive sleep apnea (adult) (pediatric); I44.0 Atrioventricular block, first degree; I25.2 Old myocardial infarction; J44.9 Chronic obstructive pulmonary disease, unspecified; K59.00 Constipation, unspecified; N18.9 Chronic kidney disease, unspecified; R07.9 Chest pain, unspecified; R60.0 Localized edema; Z87.891 Personal history of nicotine dependence; Z99.81 Dependence on supplemental oxygen; Z79.4 Long term (current) use of insulin
CPT/HCPCS: 36430; 36589; 36600; 71045; 74018; 74176; 80048; 80053; 81001; 81003; 82570; 82607; 82728; 82746; 82803; 82962; 83036; 83540; 83735; 83880; 83970; 84100; 84155; 84156; 84165; 84166; 84300; 84443; 84484; 85014; 85018; 85025; 85610; 85730; 86038; 86704; 86709; 86803; 86850; 86900; 86901; 86920; 87081; 87340; 93005; 93306; 94640; 94660; 94664; 97116; 97161; 97530

== ENCOUNTER 2018-01-14 09:49 | Day surgery (SDC) | payer BC ==
[2018-01-14] MEDS ORDERED: FENTAnyl 50 MCG/ML VIAL (11:53)
[2018-01-14] MEDS ORDERED: MIDAZOLAM 1 MG/ML 2 ML INJ (11:54)
[2018-01-14] MEDS ORDERED: LIDOCAINE 2% (MDV) 20 ML INJ (11:56)
[2018-01-14] MEDS ORDERED: POLYMYXIN/BACITRACIN 1L IRRIG IRR (12:00)
== END 2018-01-14 13:58 | disposition home or self-care (01) ==
LOC: SDS 09:49
DX: Z45.2 Encounter for adjustment and management of vascular access device (principal); I50.9 Heart failure, unspecified
CPT/HCPCS: 82962

== ENCOUNTER 2018-10-10 09:57 | Inpatient (IN) | payer BC ==
[2018-10-10] MEDS: hydrALAzine 20 MG INJ IV (11:16)
[2018-10-10 11:21] LABS: ADD MAN DIFF? NO
[2018-10-10 11:24] LABS: WHITE BLOOD COUNT 10.2 10^3/ul (4.8-10.8)
[2018-10-10 11:24] LABS: BASOPHILS % 0.4 % (0.0-2.0); EOSINOPHILS # 0.1 10^3/ul (0.0-0.5); EOSINOPHILS % 1.1 % (0.0-7.0); HEMATOCRIT 39.1 % (42.0-52.0); HEMOGLOBIN 12.5 g/dl (14.0-18.0); LYMPHOCYTES # 1.3 10^3/ul (0.8-2.9); LYMPHOCYTES % 12.6 % (15.0-51.0); MEAN CORPUSCULAR HEMOGLOBIN 27.2 pg (29.0-33.0); MEAN CORPUSCULAR VOLUME 85.2 fl (82.0-101.0); MEAN PLATELET VOLUME 10.2 fl (7.4-10.4); MONOCYTE # 0.9 10^3/ul (0.3-0.9); MONOCYTES % 8.8 % (0.0-11.0); NEUTROPHIL # 7.9 10^3/ul (1.6-7.5); NEUTROPHILS % 76.8 % (39.0-77.0); PLATELET COUNT 196 10^3/UL (140-415); RED BLOOD COUNT 4.59 10^6/ul (4.70-6.10); RED CELL DISTRIBUTION WIDTH 13.2 % (11.5-14.5)
[2018-10-10] MEDS ORDERED: NACL 0.9% 3 ML SYG IV (11:30)
[2018-10-10] MEDS ORDERED: ONDANSETRON 4 MG INJ IV (11:30)
[2018-10-10 11:43] LABS: ALANINE AMINOTRANSFERASE 26 IU/L (13-69); ALBUMIN 3.9 g/dl (3.3-4.9); ALBUMIN/GLOBULIN RATIO 1.05; ALKALINE PHOSPHATASE 78 IU/L (42-121); ANION GAP 12 (5-13); ASPARTATE AMINO TRANSFERASE 21 IU/L (15-46); BILIRUBIN,INDIRECT 0.8 mg/dl (0-1.1); BILIRUBIN,TOTAL 0.8 mg/dl (0.2-1.3); BLOOD UREA NITROGEN 71 mg/dl (7-20); CALCIUM 8.9 mg/dl (8.4-10.2); CARBON DIOXIDE 27 mmol/L (21-31); CHLORIDE 101 mmol/L (97-110); CREATININE 4.02 mg/dl (0.61-1.24); Estimated GFR 15 mL/min (>60); GLUCOSE 305 mg/dl (70-220); POTASSIUM 4.7 mmol/L (3.5-5.1); SODIUM 140 mmol/L (135-144); TOTAL PROTEIN 7.6 g/dl (6.1-8.1)
[2018-10-10] MEDS ORDERED: GLUCOSE GEL 15 GRAM TUBE PO ×2 (12:00)
[2018-10-10] MEDS ORDERED: GLUCOSE GEL 15 GRAM TUBE BUCCAL (12:00)
[2018-10-10] MEDS ORDERED: GLUCAGON 1 MG INJ IM (12:00)
[2018-10-10] MEDS ORDERED: DEXTROSE 50% 50 ML SYRINGE IV ×2 (12:00)
[2018-10-10] MEDS: SOD CHLORIDE 0.9% 1,000 ML IV (12:39)
[2018-10-10] MEDS: INSULIN ASPART [NOVOLOG] 3 ML PEN SC ×4 (12:40→20:45)
[2018-10-10] MEDS ORDERED: ALBUTEROL HFA 8 GM INHALER INH (18:00)
[2018-10-10 18:16] LABS: IRON 56 ug/dl (35-150)
[2018-10-10 18:25] LABS: % IRON SATURATION 19 % SAT (22-52); TOTAL IRON BINDING CAPACITY 301 ug/dl (241-421)
[2018-10-10] MEDS: LINAGLIPTIN 5 MG TABLET PO (18:47)
[2018-10-10] MEDS: ACCU-CHEK XX (20:05)
[2018-10-10] MEDS: MONTELUKAST 10 MG TAB PO (20:42)
[2018-10-10] MEDS: FERROUS SULFATE (EC) 325 MG TAB PO (20:42)
[2018-10-10] MEDS: GABAPENTIN 300 MG CAP PO (20:42)
[2018-10-10] MEDS: DOXAZOSIN 4 MG TAB PO (20:42)
[2018-10-10] MEDS: HEPARIN 5,000 UNIT/1 ML VIAL SC (20:43)
[2018-10-10] MEDS: FAMOTIDINE 20 MG INJ IV (20:43)
[2018-10-10] MEDS: METOPROLOL (XL) 50 MG TAB PO (20:43)
[2018-10-10] MEDS: INSULIN GLARGINE [LANTus] (100 UNITS/ML) SYG SC (20:46)
[2018-10-10] MEDS: TIOTROPIUM 18 MCG CAPSULE INHA DEV INH (20:47)
[2018-10-10] MEDS ORDERED: INSULIN GLARGINE [LANTus] (100 UNITS/ML) SYG SC ×2 (21:00)
[2018-10-10] MEDS ORDERED: TAMSULOSIN (SR) 0.4 MG CAP PO (21:00)
[2018-10-10] MEDS: morphine 2 MG INJ IV (21:09)
[2018-10-10] MEDS: PHENAZOPYRIDINE 100 MG TAB PO (22:53)
[2018-10-11] MEDS: SOD CHLORIDE 0.9% 1,000 ML IV ×3 (01:38→14:02)
[2018-10-11 07:24] LABS: ADD MAN DIFF? NO
[2018-10-11 07:29] LABS: BASOPHILS % 0.2 % (0.0-2.0); EOSINOPHILS # 0.1 10^3/ul (0.0-0.5); EOSINOPHILS % 1.5 % (0.0-7.0); HEMATOCRIT 38.6 % (42.0-52.0); HEMOGLOBIN 11.8 g/dl (14.0-18.0); LYMPHOCYTES # 1.3 10^3/ul (0.8-2.9); LYMPHOCYTES % 14.4 % (15.0-51.0); MEAN CORPUSCULAR HEMOGLOBIN 26.5 pg (29.0-33.0); MEAN CORPUSCULAR HGB CONC 30.6 g/dl (32.0-37.0); MEAN CORPUSCULAR VOLUME 86.7 fl (82.0-101.0); MEAN PLATELET VOLUME 10.7 fl (7.4-10.4); MONOCYTE # 0.8 10^3/ul (0.3-0.9); MONOCYTES % 8.7 % (0.0-11.0); NEUTROPHIL # 6.5 10^3/ul (1.6-7.5); NEUTROPHILS % 74.7 % (39.0-77.0); PLATELET COUNT 173 10^3/UL (140-415); RED BLOOD COUNT 4.45 10^6/ul (4.70-6.10); RED CELL DISTRIBUTION WIDTH 13.3 % (11.5-14.5)
[2018-10-11 07:29] LABS: WHITE BLOOD COUNT 8.7 10^3/ul (4.8-10.8)
[2018-10-11] MEDS: ACCU-CHEK XX ×6 (07:30→20:05)
[2018-10-11 07:52] LABS: ALANINE AMINOTRANSFERASE 20 IU/L (13-69); ALBUMIN 3.5 g/dl (3.3-4.9); ALKALINE PHOSPHATASE 67 IU/L (42-121); ANION GAP 9 (5-13); ASPARTATE AMINO TRANSFERASE 18 IU/L (15-46); BILIRUBIN,INDIRECT 0.7 mg/dl (0-1.1); BILIRUBIN,TOTAL 0.7 mg/dl (0.2-1.3); BLOOD UREA NITROGEN 70 mg/dl (7-20); CALCIUM 8.5 mg/dl (8.4-10.2); CARBON DIOXIDE 28 mmol/L (21-31); CHLORIDE 101 mmol/L (97-110); CHOL/HDL RATIO 5.3 RATIO; CHOLESTEROL 117 mg/dl (100-200); CREATININE 4.11 mg/dl (0.61-1.24); Estimated GFR 15 mL/min (>60); GLUCOSE 259 mg/dl (70-220); HDL CHOLESTEROL 22 mg/dl (30-78); LDL CHOLESTEROL,CALCULATED 65 mg/dl; PHOSPHORUS 5.1 mg/dl (2.5-4.9); POTASSIUM 4.6 mmol/L (3.5-5.1); SODIUM 138 mmol/L (135-144); TRIGLYCERIDES 150 mg/dl (0-149)
[2018-10-11] MEDS: INSULIN ASPART [NOVOLOG] 3 ML PEN SC ×6 (08:08→21:12)
[2018-10-11] MEDS: HEPARIN 5,000 UNIT/1 ML VIAL SC ×2 (08:10→21:27)
[2018-10-11] MEDS: PHENAZOPYRIDINE 100 MG TAB PO ×2 (08:11→21:03)
[2018-10-11] MEDS: METOPROLOL (XL) 50 MG TAB PO ×2 (08:11→21:00)
[2018-10-11] MEDS: FAMOTIDINE 20 MG INJ IV ×2 (08:11→21:01)
[2018-10-11] MEDS: LINAGLIPTIN 5 MG TABLET PO (08:11)
[2018-10-11] MEDS: GABAPENTIN 300 MG CAP PO ×3 (08:11→21:01)
[2018-10-11] MEDS: FERROUS SULFATE (EC) 325 MG TAB PO ×2 (08:11→21:01)
[2018-10-11] MEDS: ASPIRIN 81 MG TAB PO (08:14)
[2018-10-11] MEDS: NIFEdipine (XL) 30 MG TAB PO (08:14)
[2018-10-11] MEDS: ISOSORBIDE MONONITRATE(SR)30 MG TAB PO (08:14)
[2018-10-11] MEDS: FLUTICASONE/VILANTEROL 200-25 INH DEVICE INH (08:15)
[2018-10-11] MEDS: TIOTROPIUM 18 MCG CAPSULE INHA DEV INH (08:15)
[2018-10-11] MEDS: THIAMINE 100 MG TAB PO (08:15)
[2018-10-11 08:32] LABS: HEMOGLOBIN A1C 13.3 % (0-5.9)
[2018-10-11] MEDS ORDERED: NIFEdipine (XL) 90 MG TAB PO (09:00)
[2018-10-11] MEDS: POLYETHYLENE GLYCOL 17 GM PACKET PO (10:46)
[2018-10-11 13:51] LABS: T3 UPTAKE 44.2 % (23.5-40.5)
[2018-10-11] MEDS: DOXAZOSIN 4 MG TAB PO (21:00)
[2018-10-11] MEDS: MONTELUKAST 10 MG TAB PO (21:01)
[2018-10-11] MEDS: INSULIN GLARGINE [LANTus] (100 UNITS/ML) SYG SC (21:11)
[2018-10-11] MEDS: ACETAMINOPHEN 325 MG TAB PO (21:28)
[2018-10-11] MEDS: BISACODYL 10 MG SUPP PR (23:53)
[2018-10-12 06:18] LABS: CREATINE KINASE 73 IU/L (23-200)
[2018-10-12 06:18] LABS: URIC ACID 9.2 mg/dl (3.1-7.9)
[2018-10-12] MEDS: SOD CHLORIDE 0.9% 1,000 ML IV (06:44)
[2018-10-12] MEDS: ISOSORBIDE MONONITRATE(SR)30 MG TAB PO (08:14)
[2018-10-12] MEDS: NATEGLINIDE 120 MG TAB PO ×3 (08:14→17:05)
[2018-10-12] MEDS: FERROUS SULFATE (EC) 325 MG TAB PO ×2 (08:14→20:30)
[2018-10-12] MEDS: ASPIRIN 81 MG TAB PO (08:14)
[2018-10-12] MEDS: ACCU-CHEK XX ×6 (08:15→20:05)
[2018-10-12] MEDS: METOPROLOL (XL) 50 MG TAB PO ×2 (08:15→20:31)
[2018-10-12] MEDS: LINAGLIPTIN 5 MG TABLET PO (08:15)
[2018-10-12] MEDS: POLYETHYLENE GLYCOL 17 GM PACKET PO (08:15)
[2018-10-12] MEDS: PHENAZOPYRIDINE 100 MG TAB PO ×2 (08:15→20:30)
[2018-10-12] MEDS: FLUTICASONE/VILANTEROL 200-25 INH DEVICE INH (08:15)
[2018-10-12] MEDS: FAMOTIDINE 20 MG INJ IV ×2 (08:16→20:30)
[2018-10-12] MEDS: HEPARIN 5,000 UNIT/1 ML VIAL SC ×2 (08:16→20:34)
[2018-10-12] MEDS: THIAMINE 100 MG TAB PO (08:16)
[2018-10-12] MEDS: GABAPENTIN 300 MG CAP PO ×3 (08:16→20:31)
[2018-10-12] MEDS: INSULIN ASPART [NOVOLOG] 3 ML PEN SC ×4 (08:17→20:31)
[2018-10-12] MEDS: TIOTROPIUM 18 MCG CAPSULE INHA DEV INH (10:05)
[2018-10-12] MEDS: HYDROCODONE/APAP (5/325) TAB PO (10:09)
[2018-10-12 11:35] LABS: ANION GAP 12 (5-13); BLOOD UREA NITROGEN 74 mg/dl (7-20); CALCIUM 8.5 mg/dl (8.4-10.2); CARBON DIOXIDE 25 mmol/L (21-31); CHLORIDE 98 mmol/L (97-110); CREATININE 4.22 mg/dl (0.61-1.24); Estimated GFR 14 mL/min (>60); GLUCOSE 313 mg/dl (70-220); POTASSIUM 4.8 mmol/L (3.5-5.1); SODIUM 135 mmol/L (135-144)
[2018-10-12] MEDS: SOD FERRIC GLUC COMPLX 125 MG in SOD CHLORIDE 0.9% 100 ML IVPB (12:07)
[2018-10-12 12:33] LABS: FREE THYROXINE INDEX (Calc) 2.74 ug/ml (0.65-3.89); T4 (THYROXINE) 6.2 ug/dl (5.5-11.0)
[2018-10-12] MEDS: ALLOPURINOL 100 MG TAB PO (16:30)
[2018-10-12] MEDS: PIOGLITAZONE 15 MG TAB PO (16:30)
[2018-10-12] MEDS: CALCITRIOL 1 MCG INJ IV (16:31)
[2018-10-12] MEDS: ERGOCALCIFEROL (8000 UNITS/ML PO SYG) PO (16:42)
[2018-10-12] MEDS: INSULIN GLARGINE [LANTus] (100 UNITS/ML) SYG SC ×2 (17:02→20:33)
[2018-10-12] MEDS: MONTELUKAST 10 MG TAB PO (20:30)
[2018-10-12] MEDS: DOXAZOSIN 4 MG TAB PO (20:30)
[2018-10-12] MEDS: MAGNESIUM HYDROXIDE 30ML CUP PO (23:23)
[2018-10-13] MEDS: POLYETHYLENE GLYCOL 17 GM PACKET PO (08:14)
[2018-10-13] MEDS: FERROUS SULFATE (EC) 325 MG TAB PO ×2 (08:14→20:34)
[2018-10-13] MEDS: CALCITRIOL 0.25 MCG CAP PO (08:14)
[2018-10-13] MEDS: FLUTICASONE/VILANTEROL 200-25 INH DEVICE INH (08:15)
[2018-10-13] MEDS: FAMOTIDINE 20 MG INJ IV (08:15)
[2018-10-13] MEDS: PIOGLITAZONE 15 MG TAB PO (08:15)
[2018-10-13] MEDS: PHENAZOPYRIDINE 100 MG TAB PO ×2 (08:15→20:43)
[2018-10-13] MEDS: NATEGLINIDE 120 MG TAB PO ×3 (08:15→18:31)
[2018-10-13] MEDS: THIAMINE 100 MG TAB PO (08:15)
[2018-10-13] MEDS: GABAPENTIN 300 MG CAP PO ×3 (08:15→20:34)
[2018-10-13] MEDS: ASPIRIN 81 MG TAB PO (08:16)
[2018-10-13] MEDS: METOPROLOL (XL) 50 MG TAB PO ×2 (08:16→20:43)
[2018-10-13] MEDS: LINAGLIPTIN 5 MG TABLET PO (08:16)
[2018-10-13] MEDS: ALLOPURINOL 100 MG TAB PO ×2 (08:16→20:34)
[2018-10-13] MEDS: TIOTROPIUM 18 MCG CAPSULE INHA DEV INH (08:16)
[2018-10-13] MEDS: ISOSORBIDE MONONITRATE(SR)30 MG TAB PO (08:16)
[2018-10-13] MEDS: HEPARIN 5,000 UNIT/1 ML VIAL SC ×2 (08:18→20:39)
[2018-10-13] MEDS: INSULIN ASPART [NOVOLOG] 3 ML PEN SC ×4 (08:19→20:41)
[2018-10-13] MEDS: ACCU-CHEK XX ×6 (08:23→20:05)
[2018-10-13 11:23] LABS: ANION GAP 11 (5-13); BLOOD UREA NITROGEN 75 mg/dl (7-20); CARBON DIOXIDE 29 mmol/L (21-31); CHLORIDE 99 mmol/L (97-110); CREATININE 3.48 mg/dl (0.61-1.24); Estimated GFR 18 mL/min (>60); GLUCOSE 259 mg/dl (70-220); POTASSIUM 4.5 mmol/L (3.5-5.1); SODIUM 139 mmol/L (135-144)
[2018-10-13] MEDS: SOD FERRIC GLUC COMPLX 125 MG in SOD CHLORIDE 0.9% 100 ML IVPB (12:00)
[2018-10-13] MEDS: ERGOCALCIFEROL 50,000 UNIT CAP PO (15:20)
[2018-10-13] MEDS: FINASTERIDE 5 MG TAB PO (15:20)
[2018-10-13] MEDS: LACTATED RINGER'S 500 ML IV (15:22)
[2018-10-13] MEDS: DOXAZOSIN 4 MG TAB PO (20:37)
[2018-10-13] MEDS: MONTELUKAST 10 MG TAB PO (20:37)
[2018-10-13] MEDS: INSULIN GLARGINE [LANTus] (100 UNITS/ML) SYG SC (20:38)
[2018-10-14 06:10] LABS: ANION GAP 10 (5-13); BLOOD UREA NITROGEN 74 mg/dl (7-20); CALCIUM 9.5 mg/dl (8.4-10.2); CARBON DIOXIDE 31 mmol/L (21-31); CHLORIDE 100 mmol/L (97-110); CREATININE 3.14 mg/dl (0.61-1.24); Estimated GFR 20 mL/min (>60); GLUCOSE 128 mg/dl (70-220); SODIUM 141 mmol/L (135-144)
[2018-10-14] MEDS: ACCU-CHEK XX ×6 (07:30→20:27)
[2018-10-14 07:36] LABS: POTASSIUM 4.2 mmol/L (3.5-5.1)
[2018-10-14] MEDS: INSULIN ASPART [NOVOLOG] 3 ML PEN SC ×4 (08:00→20:19)
[2018-10-14] MEDS: POLYETHYLENE GLYCOL 17 GM PACKET PO (08:10)
[2018-10-14] MEDS: PHENAZOPYRIDINE 100 MG TAB PO ×2 (08:10→20:14)
[2018-10-14] MEDS: GABAPENTIN 300 MG CAP PO ×3 (08:10→20:14)
[2018-10-14] MEDS: FINASTERIDE 5 MG TAB PO (08:12)
[2018-10-14] MEDS: PIOGLITAZONE 15 MG TAB PO (08:12)
[2018-10-14] MEDS: ALLOPURINOL 100 MG TAB PO ×2 (08:12→20:16)
[2018-10-14] MEDS: LINAGLIPTIN 5 MG TABLET PO (08:12)
[2018-10-14] MEDS: NATEGLINIDE 120 MG TAB PO ×3 (08:12→17:08)
[2018-10-14] MEDS: TIOTROPIUM 18 MCG CAPSULE INHA DEV INH (08:13)
[2018-10-14] MEDS: FAMOTIDINE 20 MG TAB PO (08:13)
[2018-10-14] MEDS: FERROUS SULFATE (EC) 325 MG TAB PO ×2 (08:13→20:14)
[2018-10-14] MEDS: CALCITRIOL 0.25 MCG CAP PO (08:13)
[2018-10-14] MEDS: THIAMINE 100 MG TAB PO (08:14)
[2018-10-14] MEDS: ASPIRIN 81 MG TAB PO (08:14)
[2018-10-14] MEDS: FLUTICASONE/VILANTEROL 200-25 INH DEVICE INH (08:14)
[2018-10-14] MEDS: HEPARIN 5,000 UNIT/1 ML VIAL SC ×2 (08:18→20:18)
[2018-10-14] MEDS: ISOSORBIDE MONONITRATE(SR)30 MG TAB PO (08:20)
[2018-10-14] MEDS: METOPROLOL (XL) 50 MG TAB PO ×2 (08:20→20:17)
[2018-10-14] MEDS: LACTATED RINGER'S 500 ML IV (09:08)
[2018-10-14] MEDS: ERGOCALCIFEROL 50,000 UNIT CAP PO (10:18)
[2018-10-14] MEDS: SOD FERRIC GLUC COMPLX 125 MG in SOD CHLORIDE 0.9% 100 ML IVPB (12:09)
[2018-10-14] MEDS: MONTELUKAST 10 MG TAB PO (20:16)
[2018-10-14] MEDS: DOXAZOSIN 4 MG TAB PO (20:16)
[2018-10-14] MEDS: INSULIN GLARGINE [LANTus] (100 UNITS/ML) SYG SC (20:18)
[2018-10-14] MEDS: MAGNESIUM HYDROXIDE 30ML CUP PO (23:13)
[2018-10-15 06:00] LABS: ANION GAP 9 (5-13); BLOOD UREA NITROGEN 72 mg/dl (7-20); CALCIUM 9.1 mg/dl (8.4-10.2); CARBON DIOXIDE 32 mmol/L (21-31); CHLORIDE 99 mmol/L (97-110); CREATININE 2.45 mg/dl (0.61-1.24); Estimated GFR 27 mL/min (>60); GLUCOSE 255 mg/dl (70-220); POTASSIUM 4.1 mmol/L (3.5-5.1); SODIUM 140 mmol/L (135-144)
[2018-10-15] MEDS: ACCU-CHEK XX ×6 (07:30→20:29)
[2018-10-15] MEDS: LINAGLIPTIN 5 MG TABLET PO (08:13)
[2018-10-15] MEDS: NATEGLINIDE 120 MG TAB PO ×3 (08:13→17:07)
[2018-10-15] MEDS: FAMOTIDINE 20 MG TAB PO (08:13)
[2018-10-15] MEDS: THIAMINE 100 MG TAB PO (08:13)
[2018-10-15] MEDS: PHENAZOPYRIDINE 100 MG TAB PO ×2 (08:14→20:19)
[2018-10-15] MEDS: METOPROLOL (XL) 50 MG TAB PO ×2 (08:14→20:18)
[2018-10-15] MEDS: PIOGLITAZONE 15 MG TAB PO (08:14)
[2018-10-15] MEDS: FINASTERIDE 5 MG TAB PO (08:14)
[2018-10-15] MEDS: ALLOPURINOL 100 MG TAB PO (08:15)
[2018-10-15] MEDS: FERROUS SULFATE (EC) 325 MG TAB PO ×2 (08:15→20:18)
[2018-10-15] MEDS: CALCITRIOL 0.25 MCG CAP PO (08:15)
[2018-10-15] MEDS: TIOTROPIUM 18 MCG CAPSULE INHA DEV INH (08:15)
[2018-10-15] MEDS: ASPIRIN 81 MG TAB PO (08:15)
[2018-10-15] MEDS: ISOSORBIDE MONONITRATE(SR)30 MG TAB PO (08:16)
[2018-10-15] MEDS: POLYETHYLENE GLYCOL 17 GM PACKET PO (08:16)
[2018-10-15] MEDS: GABAPENTIN 300 MG CAP PO ×3 (08:16→20:19)
[2018-10-15] MEDS: INSULIN ASPART [NOVOLOG] 3 ML PEN SC ×4 (08:17→20:23)
[2018-10-15] MEDS: HEPARIN 5,000 UNIT/1 ML VIAL SC ×2 (08:17→20:22)
[2018-10-15] MEDS: FLUTICASONE/VILANTEROL 200-25 INH DEVICE INH (08:19)
[2018-10-15] MEDS: SOD FERRIC GLUC COMPLX 125 MG in SOD CHLORIDE 0.9% 100 ML IVPB (12:06)
[2018-10-15] MEDS: LOSARTAN 50 MG TAB PO (15:10)
[2018-10-15] MEDS: LACTATED RINGER'S 500 ML IV (15:11)
[2018-10-15] MEDS: INSULIN GLARGINE [LANTus] (100 UNITS/ML) SYG SC ×2 (16:19→20:23)
[2018-10-15] MEDS: ACETAMINOPHEN 325 MG TAB PO (20:18)
[2018-10-15] MEDS: DOXAZOSIN 4 MG TAB PO (20:19)
[2018-10-15] MEDS: MONTELUKAST 10 MG TAB PO (20:19)
[2018-10-16 05:54] LABS: ANION GAP 8 (5-13); BLOOD UREA NITROGEN 70 mg/dl (7-20); CALCIUM 9.5 mg/dl (8.4-10.2); CARBON DIOXIDE 33 mmol/L (21-31); CHLORIDE 99 mmol/L (97-110); CREATININE 2.19 mg/dl (0.61-1.24); Estimated GFR 31 mL/min (>60); GLUCOSE 264 mg/dl (70-220); POTASSIUM 4.3 mmol/L (3.5-5.1); SODIUM 140 mmol/L (135-144)
[2018-10-16 05:54] LABS: URIC ACID 5.2 mg/dl (3.1-7.9)
[2018-10-16] MEDS: ACCU-CHEK XX ×3 (07:30→11:30)
[2018-10-16] MEDS: POLYETHYLENE GLYCOL 17 GM PACKET PO (08:22)
[2018-10-16] MEDS: PHENAZOPYRIDINE 100 MG TAB PO (08:22)
[2018-10-16] MEDS: MAGNESIUM HYDROXIDE 30ML CUP PO (08:22)
[2018-10-16] MEDS: PIOGLITAZONE 15 MG TAB PO (08:23)
[2018-10-16] MEDS: CALCITRIOL 0.25 MCG CAP PO (08:23)
[2018-10-16] MEDS: LINAGLIPTIN 5 MG TABLET PO (08:23)
[2018-10-16] MEDS: GABAPENTIN 300 MG CAP PO (08:23)
[2018-10-16] MEDS: FINASTERIDE 5 MG TAB PO (08:23)
[2018-10-16] MEDS: NATEGLINIDE 120 MG TAB PO ×2 (08:23→12:36)
[2018-10-16] MEDS: ASPIRIN 81 MG TAB PO (08:24)
[2018-10-16] MEDS: FAMOTIDINE 20 MG TAB PO (08:24)
[2018-10-16] MEDS: THIAMINE 100 MG TAB PO (08:24)
[2018-10-16] MEDS: ALLOPURINOL 100 MG TAB PO (08:24)
[2018-10-16] MEDS: FERROUS SULFATE (EC) 325 MG TAB PO (08:24)
[2018-10-16] MEDS: METOPROLOL (XL) 50 MG TAB PO (08:28)
[2018-10-16] MEDS: LOSARTAN 50 MG TAB PO (08:28)
[2018-10-16] MEDS: INSULIN ASPART [NOVOLOG] 3 ML PEN SC ×2 (08:32→12:33)
[2018-10-16] MEDS: HEPARIN 5,000 UNIT/1 ML VIAL SC (08:34)
[2018-10-16] MEDS: LACTATED RINGER'S 500 ML IV (11:03)
[2018-10-16] MEDS: metFORMIN 500 MG TAB PO (11:03)
[2018-10-16] MEDS: INSULIN GLARGINE [LANTus] (100 UNITS/ML) SYG SC (12:37)
[2018-10-16] MEDS ORDERED: metFORMIN 500 MG TAB PO (18:05)
[2018-10-16] MEDS ORDERED: INSULIN GLARGINE [LANTus] (100 UNITS/ML) SYG SC (20:00)
[2018-10-17] MEDS ORDERED: LOSARTAN 50 MG TAB PO (09:00)
== END 2018-10-16 14:30 | disposition home or self-care (01) | DRG 683 ==
LOC: PP2 09:57
DX: N17.9 Acute kidney failure, unspecified (principal); I13.0 Hypertensive heart and chronic kidney disease with heart failure and stage 1 through stage 4 chronic kidney disease, or unspecified chronic kidney disease; E11.65 Type 2 diabetes mellitus with hyperglycemia; N18.4 Chronic kidney disease, stage 4 (severe); E11.22 Type 2 diabetes mellitus with diabetic chronic kidney disease; E11.40 Type 2 diabetes mellitus with diabetic neuropathy, unspecified; I50.9 Heart failure, unspecified; E66.9 Obesity, unspecified; N40.0 Benign prostatic hyperplasia without lower urinary tract symptoms; E11.21 Type 2 diabetes mellitus with diabetic nephropathy; D50.9 Iron deficiency anemia, unspecified; D63.1 Anemia in chronic kidney disease; E55.9 Vitamin D deficiency, unspecified; J44.9 Chronic obstructive pulmonary disease, unspecified; Z79.4 Long term (current) use of insulin; Z87.891 Personal history of nicotine dependence
CPT/HCPCS: 76775; 80048; 80053; 80061; 82306; 82550; 82652; 82728; 82962; 83036; 83540; 83735; 84100; 84436; 84443; 84479; 84560; 85025; 87081; 93306; 97110; 97116; 97161; 97530